=== PATIENT | female | born 1960 | race Caucasian/White ===

== ENCOUNTER 2019-07-04 10:24 | Inpatient (IN) ==
[2019-07-04 10:57] LABS: Basophils # (auto) 0.02 K/uL (0-0.2); Basophils % (auto) 0.3 %; Eosinophils # (auto) 0.03 K/uL (0-0.5); Eosinophils % (auto) 0.4 %; Hematocrit (blood only) 34.8 % (37-47); Hemoglobin 10.6 g/dL (12.0-16.0); Immature Granulocytes # (auto) 0.01 K/uL (0.00-0.02); Immature Granulocytes % (auto) 0.1 %; Lymphocytes # (auto) 1.42 K/uL (1.2-3.4); Lymphocytes % (auto) 19.7 %; Mean Corpuscular Hemoglobin 24.4 pg (25-34); Mean Corpuscular Hgb Conc 30.5 g/dL (32-36); Mean Corpuscular Volume 80.2 fL (80-100); Mean Platelet Volume 11.9 fL (7.4-10.4); Monocytes # (auto) 0.42 K/uL (0.11-0.59); Monocytes % (auto) 5.8 %; Neutrophils % (auto) 73.7 %; Platelet Count 176 K/uL (130-400); RDW Coefficient of Variation 15.7 % (11.5-14.5); RDW Standard Deviation 45.8 fL (36.4-46.3); Red Blood Count 4.34 M/uL (4.2-5.4)
--- NOTE | 2019-07-04 10:59 | XRay Report ---
XR chest 1V portable HISTORY: 59 years-old Female weakness acute weakness COMPARISON: Chest radiographs 06/10/2009 TECHNIQUE: Portable AP view of the chest FINDINGS: Moderate enlargement of the cardiac silhouette has increased in size from comparison. Prior median st ernotomy and CABG with coronary artery stent grafts. Calcified plaque of the thoracic aortic arch. Th ere is no pneumothorax, pleural effusion or overt pulmonary edema. Degenerative changes of the should ers and spine. IMPRESSION: 1. Moderate enlargement of the cardiac silhouette has increased in size from 2010. 2. Prior median sternotomy and CABG with coronary artery stent. 3. No overt pulmonary edema or airspace consolidation. ACT 112: Negative or not required by law. The above report was generated using voice recognition software. It may contain grammatical, syntax o r spelling errors. Electronically signed by: Hardik Salmon M.D. 07/04/2019 10:58 AM
[2019-07-04 11:17] LABS: Albumin Level 3.6 gm/dl (3.4-5.0); BUN Creatinine Ratio 17.1 (10-20); Creatinine Clr Calc Pharmacy 31.6 ml/min; Est GFR (African American) 23.1; Magnesium 2.5 mg/dl (1.8-2.4); Potassium 4.8 mmol/L (3.5-5.1)
[2019-07-04 11:32] LABS: Albumin Globulin Ratio 1.1 (0.9-2); Bilirubin,Total 0.9 mg/dl (0.2-1); Globulin 3.4 gm/dl (2.5-4.0); Thyroid Stimulating Hormone 3.2 uIu/ml (0.300-4.500); Troponin I 0.46 ng/ml (0-0.045)
--- NOTE | 2019-07-04 11:45 | Emergency Department Note ---
Impression & Plan Near syncope, Elevated troponin I level, SAMANTHA (acute kidney injury), Abnormal ECG ED Provider Note NAME: WAYNE GONZALEZ AGE: 59 SEX: F ARRIVES VIA: Ambulance INFORMANT: [Paient] ED PROVIDER(S): Rodriguez Martinez MD CHIEF COMPLAINT: Near syncope PLAN: Disposition: Admitted Condition: [Good] MEDICAL DECISION MAKING: Patient presented with a near syncopal/dizziness episode. She has been having several of these over the last few weeks. They have been transient and come and go. She had a work-up performed. She has an abnormal ECG however it does not appear to be significantly different than her prior one from November 2018. The patient does have a cardiac history. She had frequent ectopy on the monitor including consecutive PVCs. No episodes of V. tach noted. Her work-up did reveal an elevated creatinine concerning for SAMANTHA. Her troponin was moderately elevated as well. The patient did not have any chest discomfort, palpitation or shortness of breath. Due to the findings further management in the hospital was felt to be necessary. I did consult with the [facility] cardiology team as well as the hospitalist. Triage Nursing notes reviewed and agree them. [Prior medical records reviewed] abnormal ECG noted from 2019. Prior creatinine measurements normal. Vital Signs: reviewed and remarkable for [no significant abnormalities] Differential diagnosis: Vasovagal event, dehydration, infection, hypoglycemia, electrolyte abnormalities, cardiac sources, intracerebral event, pulmonary embolism, seizure, toxicologic, neurologic, as well as other pathologies. ER treatment provided: IV Lopressor 5 mg after discussion with cardiology. Diagnostics interpreted by me: ECG #1:Rate: 83 Rhythm: Sinus rhythm with frequent PVCs and PACs. [place]: Normal QRS: Normal ST segements: ST elevation in lead III only. This is similar to prior. Other: T wave inversions laterally. Anteroseptal Q waves. When compared to 19 December [address] elevation is the same. PVCs are new. Lateral T wave inversions are old and anteroseptal Q waves old. ECG #2:Rate: 81 Rhythm: Sinus rhythm with frequent PVCs and PACs. [place]: Normal QRS: Normal ST segements: ST elevation in lead III only. This is similar to prior. Other: T wave inversions laterally. Anteroseptal Q waves. No significant change from the first. Cardiac Monitoring: Cardiac monitoring ordered by me: The patient was placed on continuous cardiac monitoring and observed. It revealed a sinus rhythm at 62 beats per minute without dysrhythmia. Frequent ectopy noted. Laboratory studies: [See below] unremarkable CBC. Chemistry panel did reveal SAMANTHA with a creatinine that is significantly different than prior. She has an elevated troponin as well. Imaging studies: Chest x-ray. Findings: A chest x-ray was performed and revealed no pneumothorax, effusion, infiltrate, pulmonary edema, free air under the diaphragm, or wide mediastinum. Impression: No acute disease. Consultation(s): Amy hospitalist, patient will be admitted by Dr. Quoc Reyes landscaper, Dr. Blakely. HPI: 59/F arrives for evaluation of dizziness and a near syncopal episode. The patient notes over the last few weeks she has been having on and off episodes. She usually rests and they subside. The patient has an extensive cardiac history. She has been taking her medications. She talked her primary care office about this issue already. The patient states the episode today was the worst she is experienced and bystanders summoned EMS. EMS noted she did have frequent PVCs but noted no obvious dysrhythmia. She currently has no pain. She denies any other symptoms or any recent illnesses. Pt denies headache, fevers, chills, diaphoresis, visual changes, neck pain, chest pain, breathing difficulties, nausea, vomiting, abdominal pain, back pain, melena, hematochezia, urinary symptoms, numbness, weakness, lymphadenopathy, rash, or other complaints. ROS: See above HPI for pertinent positives & negatives. A total of [10] systems reviewed and were otherwise negative. PAST MEDICAL HISTORY:[See Below] diabetes, coronary artery disease, hypothyroidism PAST SURGICAL HISTORY:[See Below]CABG, coronary stent. FAMILY HISTORY:[See Below] SOCIAL HISTORY:[See Below] employed. HOME MEDICATIONS:[See Below] ALLERGIES:[See Below] VITALS:[See Below] PHYSICAL EXAMINATION: GENERAL: Awake, alert, well-appearing, in no distress HENT: Normocephalic, atraumatic. Oropharynx unremarkable. EYES: Normal conjunctiva. Sclera non-icteric. NECK: Inspection normal. Non-tender. Supple. No nuchal rigidity. FROM. No masses. RESPIRATORY: Clear to auscultation. No wheezes. No rales. Normal respiratory effort. CARDIAC: Normal rate. Normal rhythm. No murmurs. No rubs. Extremities warm and well perfused. Pulses equal. No JVD. GI: Soft, non-distended. No tenderness to palpation. No rebound or guarding. No masses. RECTAL: Deferred. MUSCULOSKELETAL: Atraumatic. Chest examination reveals no tenderness. The back is symmetrical on inspection without obvious abnormality. There is no CVA tenderness to palpation. No joint edema. LOWER EXTREMITIES: Calves are equal size bilaterally and non-tender. Trace lower edema. No discoloration. NEURO: Normal sensorium. No sensory or motor deficits noted. SKIN: No rash or jaundice noted. ED COURSE: [Critical Care:] [None] Rodriguez Martinez MD Past Med/Surg History Medical History CAD (coronary artery disease) Chronic diastolic (congestive) heart failure CKD (chronic kidney disease), stage IV Dyslipidemia (Acute) Frequent PVCs (Acute) HTN (hypertension) Hypothyroidism Major depressive disorder (Acute) Obesity (Acute) DONALD (obstructive sleep apnea) (Acute) Type 2 diabetes mellitus (Acute) Surgical History History of gastric bypass (Acute ~2008) Donn En Y Hx of CABG (Acute ~2004) "CABG, PCI, and stent to the mid RCA in Mar 2004" Status post coronary artery stent placement (Acute ~12/18/18) [id number] Resolute Rousseau stent to LAD distal to ALEMAN-LAD graft touchdown. 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 Other Information That Helps Us Care for You: No Feels Safe at Home: Yes Safety Concerns: Feels Safe At This Time Smoking Status: Never smoker Do You Dip or Chew Tobacco: No ; Second Hand Exposure: No ; Tobacco Cessation Education Requested by Patient: No Hx Alcohol Use: No Hx Substance Use: No Allergies Allergies Allergy/AdvReac Type Severity Reaction Status Date / Time lisinopril Allergy Severe Diarrhea Verified 07/04/19 11:07 escitalopram [From Lexapro] AdvReac Severe NAUSEA/VOMI Verified 07/04/19 11:07 TING Home Meds Home Medications Medication Instructions Recorded Confirmed aspirin [Aspirin Childrens] 81 mg PO DAILY 04/29/19 07/04/19 atorvastatin 80 mg PO PM 04/29/19 07/04/19 biotin 1 mg PO DAILY 04/29/19 07/04/19 clopidogrel [Plavix] 75 mg PO DAILY 04/29/19 07/04/19 famotidine [Pepcid] 20 mg PO DAILY 04/29/19 07/04/19 furosemide [Lasix] 40 mg PO DAILY 04/29/19 07/04/19 hydrocortisone 1 applic TOPICAL TID PRN 04/29/19 07/04/19 insulin glargine [Lantus U-100 27 unit SUBCUT DAILY 04/29/19 07/04/19 Insulin] isosorbide dinitrate 10 mg PO BID 04/29/19 07/04/19 levothyroxine 50 mcg PO DAILYBB 04/29/19 07/04/19 losartan 50 mg PO DAILY 04/29/19 07/04/19 metoprolol tartrate 25 mg PO BID 04/29/19 07/04/19 nitroglycerin [Nitrostat] 0.4 mg SUBLINGUAL DIRECTED PRN 04/29/19 07/04/19 pantoprazole [Protonix] 40 mg PO DAILYBB 04/29/19 07/04/19 Results & Data (ED) Vital Signs Vital Signs - 24 hr 07/04/19 10:32 07/04/19 10:45 Temperature 36.6 C Temperature Source Oral Pulse Rate 84 Pulse Rate from SpO2 Sensor 83 Respiratory Rate 17 Blood Pressure 128/73 Blood Pressure Mean 92 Pulse Oximetry 99 99 Oxygen Delivery Method Room Air Room Air Sepsis Recent Fever Within 48 Hours No Sepsis New/Unexplained Change in Mental Status No Sepsis Action Taken by Nursing No Action Required Laboratory Data Result diagrams: 07/04/19 10:42 07/04/19 10:42 Lab Results 07/04/19 07/04/19 Range/Units 10:42 10:42 WBC 7.20 (4.8-10.8) K/uL RBC 4.34 (4.2-5.4) M/uL Hgb 10.6 L (12.0-16.0) g/dL Hct 34.8 L (37-47) % MCV 80.2 (80-100) fL MCH 24.4 L (25-34) pg MCHC 30.5 L (32-36) g/dL RDW Std Deviation 45.8 (36.4-46.3) fL RDW Coeff of Kami 15.7 H (11.5-14.5) % Plt Count 176 (130-400) K/uL MPV 11.9 H (7.4-10.4) fL Immature Gran % (Auto) 0.1 % Neut % (Auto) 73.7 % Lymph % (Auto) 19.7 % [place] % (Auto) 5.8 % Eos % (Auto) 0.4 % Baso % (Auto) 0.3 % Immature Gran # (Auto) 0.01 (0.00-0.02) K/uL Neut # (Auto) 5.30 (1.4-6.5) K/uL Lymph # (Auto) 1.42 (1.2-3.4) K/uL [place] # (Auto) 0.42 (0.11-0.59) K/uL Eos # (Auto) 0.03 (0-0.5) K/uL Baso # (Auto) 0.02 (0-0.2) K/uL Sodium 139 (136-145) mmol/L Potassium 4.8 (3.5-5.1) mmol/L Chloride 106 (98-107) mmol/L Carbon Dioxide 22 (21-32) mmol/L Anion Gap 11.0 (3-11) BUN 44 H (7-18) mg/dl Creatinine 2.57 H (0.6-1.2) mg/dl Est Cr Clr Drug Dosing 31.6 ml/min Est GFR ( Amer) 23.1 Est GFR (Non-Af Amer) 20.0 BUN/Creatinine Ratio 17.1 (10-20) Glucose 169 H (70-99) mg/dl Calcium 8.0 L (8.5-10.1) mg/dl Magnesium 2.5 H (1.8-2.4) mg/dl Total Bilirubin 0.9 (0.2-1) mg/dl AST 19 (15-37) U/L ALT 24 (12-78) U/L Alkaline Phosphatase 125 H (45-117) U/L Troponin I 0.460 H* (0-0.045) ng/ml Total Protein 7.0 (6.4-8.2) gm/dl Albumin 3.6 (3.4-5.0) gm/dl Globulin 3.4 (2.5-4.0) gm/dl Albumin/Globulin Ratio 1.1 (0.9-2) TSH 3.200 (0.300-4.500) uIu/ml Administered Medications Amiodarone HCl 450 mg/ (Dextrose) 250 mls @ 33.333 mls/hr IV .Q7H30M [facility]; Protocol Stop: 08/03/19 16:04 Last Admin: 07/04/19 16:19 Dose: 1 mg/min, 33.3 mls/hr Documented by: [id number] Cosigned by: [id number] Insulin Aspart (Novolog Flexpen) 0 units SC ACHS [facility] Stop: 08/03/19 16:29 Last Admin: 07/04/19 17:28 Dose: 3 units Documented by: [id number] Cosigned by: [id number] Isosorbide Dinitrate (Isordil) 10 mg PO 0700,1200 [facility] Stop: 08/03/19 14:59 Last Admin: 07/04/19 15:42 Dose: 10 mg Documented by: [id number] Discontinued Medications Sodium Chloride (Nss 1000ml) 250 mls @ 999 mls/hr IV .Q16M ONE Stop: 07/04/19 12:21 Last Infusion: 07/04/19 13:12 Dose: 0 mls/hr Documented by: [id number] Admin: 07/04/19 12:56 Dose: 999 mls/hr Documented by: [id number] Amiodarone HCl/Dextrose (Nexterone / D5w) 150 mg in 100 mls @ 600 mls/hr IV NOW [facility] Stop: 07/04/19 16:04 Last Infusion: 07/04/19 16:33 Dose: 0 mls/hr Documented by: [id number] Cosigned by: [id number] Admin: 07/04/19 16:03 Dose: 600 mls/hr Documented by: [id number] Cosigned by: [id number] Metoprolol Tartrate (Lopressor) 5 mg IV NOW STA Stop: 07/04/19 11:52 Last Admin: 07/04/19 14:55 Dose: Not Given Documented by: [id number] Discharge Plan Visit Data *Final* Discharge Date/Time: 07/04/19 12:57 Chief Complaint: Syncope ED Provider: Rodriguez Martinez Discharge Problem: Near syncope, Elevated troponin I level, SAMANTHA (acute kidney injury), Abnormal ECG Patient Disposition: Admitted As Inpatient Discharge Instructions Interventions: ED Discharge Assessment Last Done: 07/04/19 12:57
[2019-07-04] MEDS ORDERED: METOPROLOL TARTRATE 1 MG/ML VIAL IV STA (11:51)
[2019-07-04] MEDS ORDERED: SODIUM CHLORIDE 0.9% 1000ML 250 ML IV ONE (12:06)
--- NOTE | 2019-07-04 13:15 | History & Physical Report ---
Date of Service July 04, 2019 Assessment & Plan (1) Dizziness: DDX: Orthostatic hypotension, arrhythmia, symptomatic bradycardia, hypoglycemia Pt is 59 y/o F with PMH CAD s/p CABG, stent to LAD, HTN, dyslipidemia, chronic resting bradycardia, frequent PVCs, CKD IV, DM II, obesity s/p gastric bypass, DONALD intolerant to CPAP presented to ER with complaint of intermittent dizziness x 1-2 weeks. Patient states his been experiencing a dizziness sensation with walking or bending over. Today episode of dizziness and near syncope and fell onto right knee. Denies CP, SOB, palpitations, N/V In ER pt afebrile, Pulse variable in 50s-70's, R: 20, BP: 128/73, 99% on RA. No leukocytosis, H/H: 10.6/34 (Hgb baseline ~10s), glucose: 169, troponin: 0.46, Ca: 8, magnesium 2.5 otherwise no other significant electrolyte abnormality. EKG with PVCs -Monitor on tele for arrhythmia -ER contacted cardiology, Dr Blakely who had recommended Lopressor 5mg IV. Lopressor dose was held in ER secondary to HR: 52 -Obtain orthostatic vital signs -Monitor BSGs -Pt denies any imaging or workup on her right knee at this time -CBC, BMP in am (2) Elevated troponin I level: troponin: 0.46 No CP, SOB -Trend troponin -Echo -Cardiology consult (3) Frequent PVCs: H/O frequent PVCs Pt without report of palpitations -Continue metoprolol -Monitor on tele (4) Acute kidney injury superimposed on CKD: Cr: 2.5. Baseline Cr: 2.0-2.1. Follows with Dr Darling -250ml NSS bolus -Hold lasix tomorrow and reassess -Monitor renal functions -Avoid nephrotoxic agents when possible -May need to consider nephrology consult if worsening (5) CAD (coronary artery disease): S/P CABG, S/P HAILEY to LAD in 11/2018 -Continue aspirin, Plavix, isosorbide, atorvastatin -Trending trops as above (6) HTN (hypertension): -Continue metoprolol, losartan (7) Type 2 diabetes mellitus: A1c: 7.4 on 04/06/2019 -Continue Lantus -Novolog sliding scale per protocol (8) Chronic diastolic (congestive) heart failure: 11/2018 echo: EF: 60-64%, grade II diastolic dysfunction, moderate aortic valve sclerosis Appears euvolemic -Patient had Lasix today, will hold Lasix dosage tomorrow and reassess (9) DONALD (obstructive sleep apnea): Intolerant to CPAP (10) Obesity: S/p gastric bypass BMI 47 Lifestyle modifications recommended (11) Hypothyroidism: TSH: 3.2 -Continue levothyroxine DVT Prophylaxis -SCDs Full Code as per discussion with pt Follows with Dr Olvera for routine care Pt was seen and care coordinated with Dr Kumari. See addendum History of Present Illness Chief Complaint: Dizziness Primary Care Provider: Laxmi Olvera, DO Pt is 59 y/o F with PMH CAD s/p CABG, stent to LAD, HTN, dyslipidemia, chronic resting bradycardia, frequent PVCs, CKD IV, DM II, obesity s/p gastric bypass, DONALD intolerant to CPAP presented to ER with complaint of intermittent dizziness x 1-2 weeks. Patient states his been experiencing a dizziness sensation with walking which she describes as initially feeling "woozy" and feels like she needs to hold onto something. Sometimes she feels like things are spinning around. Has also noticed the sensation with bending over to put files away. Today had episode at work while walking and becoming dizzy and patient states had "blackness of vision" causing patient to fall on right knee. Patient states she could still hear everything does not think that she had complete LOC. Denies any associated chest pain, shortness of breath, palpitations, diaphoresis, nausea, vomiting with these episodes. Patient denies any other episodes of chest pain or shortness of breath. Patient reports her right knee feels stiff after fall today. Patient denies any other injury. Reports has been trying to drink some more water recently thinking she may be dehydrated. Pt states her resting pulse in the 40's. Reports fasting BSG is 120-140s. Unsure of what BP or BSG is after these dizzy episodes. Denies fever/chills, diaphoresis, N/V/D/C, WILDER, other vision changes, neck pain, orthopnea, cough, sore throat, choking, otalgia, rhinorrhea, abdominal pain, paresthesias, weakness, extremity weakness, extremity edema, rashes, urinary symptoms. Denies ill contacts, recent travel. Allergies Allergy/AdvReac Type Severity Reaction Status Date / Time lisinopril Allergy Severe Diarrhea Verified 07/04/19 11:07 escitalopram [From Lexapro] AdvReac Severe NAUSEA/VOMI Verified 07/04/19 11:07 TING Home Medications Home Medications Medication Instructions Recorded Confirmed Type aspirin [Aspirin Childrens] 81 mg PO DAILY 04/29/19 07/04/19 History atorvastatin 80 mg PO PM 04/29/19 07/04/19 History biotin 1 mg PO DAILY 04/29/19 07/04/19 History clopidogrel [Plavix] 75 mg PO DAILY 04/29/19 07/04/19 History famotidine [Pepcid] 20 mg PO DAILY 04/29/19 07/04/19 History furosemide [Lasix] 40 mg PO DAILY 04/29/19 07/04/19 History hydrocortisone 1 applic TOPICAL TID PRN 04/29/19 07/04/19 History insulin glargine [Lantus U-100 27 unit SUBCUT DAILY 04/29/19 07/04/19 History Insulin] isosorbide dinitrate 10 mg PO BID 04/29/19 07/04/19 History levothyroxine 50 mcg PO DAILYBB 04/29/19 07/04/19 History losartan 50 mg PO DAILY 04/29/19 07/04/19 History metoprolol tartrate 25 mg PO BID 04/29/19 07/04/19 History nitroglycerin [Nitrostat] 0.4 mg SUBLINGUAL DIRECTED PRN 04/29/19 07/04/19 History pantoprazole [Protonix] 40 mg PO DAILYBB 04/29/19 07/04/19 History Past Med/Surg History Medical History (Updated 07/04/19 @ 13:39 by Lauren Ruiz PA-C) CAD (coronary artery disease) Chronic diastolic (congestive) heart failure CKD (chronic kidney disease), stage IV Dyslipidemia (Acute) Frequent PVCs (Acute) HTN (hypertension) Hypothyroidism Major depressive disorder (Acute) Obesity (Acute) DONALD (obstructive sleep apnea) (Acute) Type 2 diabetes mellitus (Acute) Surgical History History of gastric bypass (Acute ~2008) Donn En Y Hx of CABG (Acute ~2004) "CABG, PCI, and stent to the mid RCA in Mar 2004" Status post coronary artery stent placement (Acute ~12/18/18) [id number] Resolute [place] stent to LAD distal to ALEMAN-LAD graft touchdown. 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 Other Information That Helps Us Care for You: No Feels Safe at Home: Yes Safety Concerns: Feels Safe At This Time Smoking Status: Never smoker Do You Dip or Chew Tobacco: No ; Second Hand Exposure: No ; Tobacco Cessation Education Requested by Patient: No Hx Alcohol Use: No Hx Substance Use: No Review of Systems Review of Systems: All systems reviewed & are unremarkable except as noted in HPI & below Physical Exam Physical Exam: General: no distress, obese Head: normocephalic, atraumatic Eyes: PERRL, EOM's intact, conjunctiva non-injected, anicteric ENT: normal inspection external ears, nose, mucous membranes moist Neck: supple, trachea midline, ROM intact Lungs: clear, no respiratory distress, no wheezing/rhonchi/rales CV: bradycardia, rate 56, +ectopy, no murmur, no pretibial edema Abd: normal BS, protuberant, soft, non-tender Ext: no cyanosis, no calf tenderness; right knee without erythema,ecchymosis or edema, able to flex and extend, distal pulses palpable Neuro: A&O x 3, no focal deficits noted, normal affect Skin: warm, dry Results & Data Results & Data ([facility]) Vital Signs (Past 12 Hours) Vital Signs Temp Pulse Resp BP Pulse Ox 07/04/19 10:45 99 07/04/19 10:32 36.6 C 84 17 128/73 99 Laboratory Results Short CBC 07/04/19 Range/Units 10:42 WBC 7.20 (4.8-10.8) K/uL Hgb 10.6 L (12.0-16.0) g/dL Hct 34.8 L (37-47) % Plt Count 176 (130-400) K/uL BMP 07/04/19 10:42 Sodium 139 Potassium 4.8 Chloride 106 Carbon Dioxide 22 BUN 44 H Creatinine 2.57 H Glucose 169 H Calcium 8.0 L Cardiac Enzymes 07/04/19 Range/Units 10:42 Troponin I 0.460 H* (0-0.045) ng/ml Liver Function 07/04/19 Range/Units 10:42 Total Bilirubin 0.9 (0.2-1) mg/dl AST 19 (15-37) U/L ALT 24 (12-78) U/L Alkaline Phosphatase 125 H (45-117) U/L Albumin 3.6 (3.4-5.0) gm/dl Diagnostic Findings CXR: IMPRESSION: 1. Moderate enlargement of the cardiac silhouette has increased in size from 2009. 2. Prior median sternotomy and CABG with coronary artery stent. 3. No overt pulmonary edema or airspace consolidation. Code Status & VTE Plan VTE Prophylaxis Plan VTE Prophylaxis will be ordered: Yes Supervising Physician Co-Signing Physician Notes I, Dr. Jeromy Kumari, have seen and examined the patient Crissy Ríos with physician stylist assistant and would like to comment that: On Physical Exam General: Obese female patient, no acute distress Lungs: clear to auscultation, no wheezing Heart: bradycardia in the 50s Abdomen: soft, nontender, positive bowel sounds Extremities: knee pain ASSESSMENT AND PLAN And as per patient and outpatient records, she has cardiac history including drug eluting stent in November 2018 and on dual anti-platelets, also takes diuretics, and diabetes mellitus type 2 on [facility] current use of insulin. Patient reports in recent weeks of feeling lightheaded when walking, she denies feeling these episodes when at rest or when changing positioning from sitting to standing or stand to sitting. She does note that sometimes she does feel lightheaded when bending to reach for paperwork and files at her job. Patient had syncopal episode at work today. She does not know her blood sugars at the time of the syncopal event and she reports she checks blood sugar only in once a day in the morning before breakfast - she had never checked blood sugars in any episode of lightheadedness previously. Patient denies shortness of breath of chest pain or palpations or other associated symptoms when lightheaded. Patient does have premature ventricular contractions as seen in the ED but no symptoms of dizziness in the ED. Hospitalist held the metoprolol 5 mg IV as ordered by ED provider as patient comfortable and heart rate in the 50s -Syncope/Dizziness: cardiac and diabetes workup as below, give IV fluids and check orthostatics q shift -History of hypertension: no hypotension on admission, may continue home dose isosorbide dinitrate and home dose losartan for now -Elevated troponins: admission troponin 0.406. no chest pain, history of coronary artery disease with presence of drug eluting stent, trend troponins, monitor on telemetry, cardiology consult, echocardiogram -Chronic diastolic (congestive) heart failure; Coronary artery disease with presence of drug eluting stent: S/P CABG in the past, S/P HAILEY to LAD in 11/2018, continue home aspirin and clopidogrel, continue statin, no edema on admission CXR, hold Lasix for now because of SAMANTHA -Acute kidney injury on chronic kidney disease: outpatient creatinine of 2, admission creatinine of 2.5, give IV fluids and trend creatinine, hold Lasix for now -Knee pain: patient deferred knee X ray, PT/OT evaluation, encourage ambulation to monitor heart rate and rhythm with activity -Hypothyroidism: TSH is normal level, continue home dose levothyroxine -Type 2 diabetes mellitus 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 Townsend will be taking over the care of the patient as hospitalist starting on 07/05/2019
[2019-07-04] MEDS ORDERED: CARBOHYDRATES FOR HYPOGLYCEMIA PO PRN (13:59)
[2019-07-04] MEDS ORDERED: GLUCOSE 10 TABS/TUBE PO PRN (13:59)
[2019-07-04] MEDS ORDERED: GLUCOSE 40% GEL 15 GM TUBE PO PRN (13:59)
[2019-07-04] MEDS ORDERED: HYDROCORTISONE 2.5% CR 30 GM TUBE EXT PRN (13:59)
[2019-07-04] MEDS ORDERED: DEXTROSE 50% 50 ML SYRINGE IV PRN (13:59)
[2019-07-04] MEDS ORDERED: GLUCAGON FOR INJ 1 MG VIAL SQ PRN (13:59)
[2019-07-04] MEDS ORDERED: NITROGLYCERIN SL 0.4 MG/TAB TAB SL PRN (13:59)
[2019-07-04] MEDS ORDERED: MoRPHine SULFATE 2 MG/ML CARP IV PRN (15:41)
[2019-07-04] MEDS: ISOSORBIDE DINITRATE 10 MG TAB PO SCH (15:42)
[2019-07-04] MEDS ORDERED: STAT IV Infusion **Titration per Protocol STA (15:55)
[2019-07-04] MEDS ORDERED: 0.2 MICRON FILTER SET 1 EA IV ONE (15:55)
[2019-07-04] MEDS ORDERED: AMIODARONE IV BOLUS & DRIP IV STA (15:55)
[2019-07-04] MEDS ORDERED: AMIODARONE / D5W 150 MG/100 ML BAG IV STA (15:55)
[2019-07-04] MEDS: AMIODARONE 450 MG in D5W 250ML IN *POLYOLEFIN BAG* 241 ML IV SCH ×2 (16:19→23:36)
--- NOTE | 2019-07-04 16:52 | Cardiology Consultation ---
Date of Consultation July 04, 2019 Assessment & Plan (1) Frequent PVCs: (2) Acute kidney injury superimposed on CKD: (3) CAD (coronary artery disease): (4) Obesity: (5) DONALD (obstructive sleep apnea): (6) Near syncope: (7) Cardiomyopathy: The patient has a well-documented longstanding history of frequent PVCs, however, this is been followed closely and she is always maintained in normal ejection fraction. This is also her first syncopal event. Given the frequency of her ectopy at this time along with her symptoms I am concerned that she may have had a run of ventricular tachycardia causing her to lose consciousness. Along with that, we now see a precipitous drop of her LV systolic function that makes me concerned that it may be PVC induced. Unfortunately, her renal function limits my options for antiarrhythmics Given the immediate concern I will start her on amiodarone IV bolus and drip. My hope is that we will see significant PVC suppression without any sustained arrhythmias after the medication has been started. She was counseled on this medication along with the benefits and risks and she is agreeable to use the amiodarone at this time. Should we not see any significant improvement despite amiodarone loading then transfer to [facility] may be necessary for PVC ablation. Consideration may also have to be given to an ischemic evaluation given her extensive history of coronary artery disease, but given her current symptoms and lack of any objective findings of ischemia at this point we will pursue an electrical solution. The patient was also counseled on the potential grave nature of these new findings and she states he understands. Obviously, her electrolytes will be followed very closely and repleted as necessary to maintain potassium greater than 4 and magnesium greater than 2. She does not currently examine his volume overloaded so given her downtrending renal function I believe it would be sosa to give her a trial of normal saline solution and follow her renal function but I would have a very short leash to start diuretics should she show any clinical signs of volume overload. Her aspirin and Plavix should be continued uninterrupted. We will follow very closely. History of Present Illness Reason for Consultation: syncope/frequent PVC's Requesting Physician: Dr. Kumari Attending Physician: Jeromy Kumari MD History of Present Illness It was my pleasure to see Mrs. Ríos in consultation today July 04, 2019. She is a very pleasant 59-year-old woman who normally follows with Dr. Olvera of our cardiology practice. She presented to [facility] emergency department on 07/04/2019 with complaints of lightheaded this and a possible brief loss of consciousness. The patient states that for the last 3 weeks or so she is been having episodes of lightheadedness. She states that she simply be walking or sitting and all of a sudden become lightheaded. These have seemed to have waxed and waned and she denies any associated symptoms with this lightheaded spells. She specifically denies any associated chest pain, shortness of breath, palpitations or syncope. Today she was at work walking the perez when suddenly she became significantly lightheaded to the point where she started going towards the wall to balance herself. She remembers becoming significantly lightheaded and then she is not sure but she thinks she may have lost consciousness for a brief second. She did end up on the ground with pain on her right knee where she must of landed. At that point coworkers rushed to her side and EMS was called. Upon presentation emergency department she was found to be in sinus rhythm with very frequent PVCs. I discussed the case at that time with Dr. Martinez and recommend she be given 5 mg of IV Lopressor. Labs were drawn which show a significant decline of her renal function and she was admitted to telemetry. Clinically she states that she has been feeling well since admission has not any further lightheaded spells. Telemetry continues to show sinus rhythm with very frequent PVCs. Past medical history: chronic coronary disease, hypertension, dyslipidemia, morbid obesity, Diabetes Diastolic dysfunction with normal LV systolic function. Carotid occlusive disease chronic resting bradycardia, and frequent premature ventricular complexes. Due to CP/SOB, she was sent for repeat cardiac catheterization on December 18, 2018 at [facility] which demonstrated 90% stenosis of the mid LAD distal to the ALEMAN to LAD graft touchdown. She was treated with a 1 drug- eluting stent with good results. On discharge she was prescribed Plavix 75 mg daily and furosemide was increased to 40 mg daily due to elevated LVEDP. HCTZ was discontinued. Allergies Allergy/AdvReac Type Severity Reaction Status Date / Time lisinopril Allergy Severe Diarrhea Verified 07/04/19 11:07 escitalopram [From Lexapro] AdvReac Severe NAUSEA/VOMI Verified 07/04/19 11:07 TING Home Medications Home Medications Medication Instructions Recorded Confirmed Type aspirin [Aspirin Childrens] 81 mg PO DAILY 04/29/19 07/04/19 History atorvastatin 80 mg PO PM 04/29/19 07/04/19 History biotin 1 mg PO DAILY 04/29/19 07/04/19 History clopidogrel [Plavix] 75 mg PO DAILY 04/29/19 07/04/19 History famotidine [Pepcid] 20 mg PO DAILY 04/29/19 07/04/19 History furosemide [Lasix] 40 mg PO DAILY 04/29/19 07/04/19 History hydrocortisone 1 applic TOPICAL TID PRN 04/29/19 07/04/19 History insulin glargine [Lantus U-100 27 unit SUBCUT DAILY 04/29/19 07/04/19 History Insulin] isosorbide dinitrate 10 mg PO BID 04/29/19 07/04/19 History levothyroxine 50 mcg PO DAILYBB 04/29/19 07/04/19 History losartan 50 mg PO DAILY 04/29/19 07/04/19 History metoprolol tartrate 25 mg PO BID 04/29/19 07/04/19 History nitroglycerin [Nitrostat] 0.4 mg SUBLINGUAL DIRECTED PRN 04/29/19 07/04/19 History pantoprazole [Protonix] 40 mg PO DAILYBB 04/29/19 07/04/19 History Patient History Medical History CAD (coronary artery disease) Chronic diastolic (congestive) heart failure CKD (chronic kidney disease), stage IV Dyslipidemia (Acute) Frequent PVCs (Acute) HTN (hypertension) Hypothyroidism Major depressive disorder (Acute) Obesity (Acute) DONALD (obstructive sleep apnea) (Acute) Type 2 diabetes mellitus (Acute) Surgical History History of gastric bypass (Acute ~2008) Donn En Y Hx of CABG (Acute ~2004) "CABG, PCI, and stent to the mid RCA in Mar 2004" Status post coronary artery stent placement (Acute ~12/18/18) [id number] Resolute Fernando stent to LAD distal to ALEMAN-LAD graft touchdown. 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 No acute distress. HEENT: Normocephalic, atraumatic. Pupils equal, round and reactive to light and accommodation. Extraocular muscles are intact. Anicteric sclera. Moist mucous membranes. Neck: No JVD. No bruit. Cardiovascular: Regular. Positive S-4. Normal S-1 and S-2. No S-3. No murmurs or rubs. Pulmonary: Clear to auscultation B/L. No rales, rhonchi or wheezing Abdomen: Bowel sounds x 4, soft. No rebound, guarding or tenderness. No organomegaly. Extremities: No clubbing, cyanosis or edema. +2 pedal pulses bilaterally. Skin: Warm and dry. Results & Data ([facility]) Vital Signs (Past 12 Hours) Vital Signs Temp Pulse Pulse Resp BP BP Pulse Ox 07/04/19 15:48 69 07/04/19 15:04 36.8 C 64 18 165/63 H 98 07/04/19 13:25 65 07/04/19 13:20 36.9 C 52 L 18 138/85 100 07/04/19 10:45 99 07/04/19 10:32 36.6 C 84 17 128/73 99 Laboratory Results Laboratory Results - last 24 hr 07/04/19 07/04/19 07/04/19 10:42 10:42 15:49 WBC 7.20 RBC 4.34 Hgb 10.6 L Hct 34.8 L MCV 80.2 MCH 24.4 L MCHC 30.5 L RDW Std Deviation 45.8 RDW Coeff of Kami 15.7 H Plt Count 176 MPV 11.9 H Immature Gran % (Auto) 0.1 Neut % (Auto) 73.7 Lymph % (Auto) 19.7 Vermillion % (Auto) 5.8 Eos % (Auto) 0.4 Baso % (Auto) 0.3 Immature Gran # (Auto) 0.01 Neut # (Auto) 5.30 Lymph # (Auto) 1.42 [place] # (Auto) 0.42 Eos # (Auto) 0.03 Baso # (Auto) 0.02 Sodium 139 Potassium 4.8 Chloride 106 Carbon Dioxide 22 Anion Gap 11.0 BUN 44 H Creatinine 2.57 H Est Cr Clr Drug Dosing 31.6 Est GFR ( Amer) 23.1 Est GFR (Non-Af Amer) 20.0 BUN/Creatinine Ratio 17.1 Glucose 169 H POC Glucose Calcium 8.0 L Magnesium 2.5 H Total Bilirubin 0.9 AST 19 ALT 24 Alkaline Phosphatase 125 H Troponin I 0.460 H* 0.516 H* Total Protein 7.0 Albumin 3.6 Globulin 3.4 Albumin/Globulin Ratio 1.1 TSH 3.200 07/04/19 16:15 WBC RBC Hgb Hct MCV MCH MCHC RDW Std Deviation RDW Coeff of Kami Plt Count MPV Immature Gran % (Auto) Neut % (Auto) Lymph % (Auto) [place] % (Auto) Eos % (Auto) Baso % (Auto) Immature Gran # (Auto) Neut # (Auto) Lymph # (Auto) [place] # (Auto) Eos # (Auto) Baso # (Auto) Sodium Potassium Chloride Carbon Dioxide Anion Gap BUN Creatinine Est Cr Clr Drug Dosing Est GFR ( Amer) Est GFR (Non-Af Amer) BUN/Creatinine Ratio Glucose POC Glucose 174 H Calcium Magnesium Total Bilirubin AST ALT Alkaline Phosphatase Troponin I Total Protein Albumin Globulin Albumin/Globulin Ratio TSH Medications Administered Current Inpatient Medications Acetaminophen (Tylenol) 650 mg PO Q4H PRN PRN Reason: Pain or Fever Stop: 08/03/19 13:58 Amiodarone HCl () 1 ea N/A ONE ONE Stop: 07/04/19 21:56 Aspirin (Aspirin Chew) 81 mg PO DAILY ABNER Stop: 08/04/19 08:59 Atorvastatin Calcium (Lipitor) 80 mg PO PM ABNER Stop: 08/03/19 20:59 Clopidogrel Bisulfate (Plavix) 75 mg PO DAILY ABNER Stop: 08/04/19 08:59 Dextrose (Dextrose 50%) 25 - 50 ml IV UD PRN; Protocol PRN Reason: Hypoglycemia Protocol Stop: 08/03/19 13:58 Famotidine (Pepcid) 20 mg PO DAILY ABNER Stop: 08/04/19 08:59 Glucagon (Glucagen) 1 mg SQ UD PRN; Protocol PRN Reason: Hypoglycemia Protocol Stop: 08/03/19 13:58 Glucose (Dex4 Glucose) 4 - 8 tabs PO UD PRN; Protocol PRN Reason: Hypoglycemia Protocol Stop: 08/03/19 13:58 Glucose (Glucose 40%) 15 - 30 gm PO UD PRN; Protocol PRN Reason: Hypoglycemia Protocol Stop: 08/03/19 13:58 Hydrocortisone (Hydrocortisone 2.5%) 1 appln EXT TID PRN PRN Reason: AFFECTED AREA Stop: 08/03/19 13:58 Amiodarone HCl 450 mg/ (Dextrose) 250 mls @ 33.333 mls/hr IV .Q7H30M [facility]; Protocol Stop: 08/03/19 16:04 Last Admin: 07/04/19 16:19 Dose: 1 mg/min, 33.3 mls/hr Documented by: Insulin Aspart (Novolog Flexpen) 0 units SC ACHS [facility] Stop: 08/03/19 16:29 Insulin Glargine (Lantus Solostar Pen) 27 units SC DAILY ABNER Stop: 08/04/19 08:59 Isosorbide Dinitrate (Isordil) 10 mg PO 0700,1200 ABNER Stop: 08/03/19 14:59 Last Admin: 07/04/19 15:42 Dose: 10 mg Documented by: Levothyroxine Sodium (Synthroid) 50 mcg PO DAILYBB [facility] Stop: 08/04/19 06:29 Losartan Potassium (Cozaar) 50 mg PO DAILY [facility] Stop: 08/04/19 08:59 Metoprolol Tartrate (Lopressor) 25 mg PO BID [facility] Stop: 08/03/19 20:59 Miscellaneous (Carbohydrates For Hypoglycemia) 15 - 30 gm PO UD PRN PRN Reason: Hypoglycemia Protocol Stop: 08/03/19 13:58 Morphine Sulfate (Morphine Sulfate) 2 mg IV Q8H PRN PRN Reason: moderate to severe pain Stop: 07/18/19 15:40 Nitroglycerin (Nitrostat) 0.4 mg SL PRN PRN PRN Reason: Chest Pain Stop: 08/03/19 13:58 Pantoprazole Sodium (Protonix) 40 mg PO DAILYBB [facility] Stop: 08/04/19 06:29
[2019-07-04] MEDS: INSULIN ASPART 100 UNITS/ML 3 ML PEN SC SCH ×2 (17:28→20:39)
[2019-07-04 17:39] LABS: Appearance Urine Clear (Clear); Bacteria Urine Automated 4+ (Negative); Bilirubin Urine Negative (Negative); Blood Urine Negative (Negative); Color Urine Yellow; Epithelial Cell Urine Auto 0-5 /lpf (0-5); Glucose Urine UA Negative (Negative); Ketones Urine Negative (Negative); Leukocyte Esterase Urine Negative (Negative); Nitrite Urine Positive (Negative); Protein Urine Negative (Negative); RBC Urine Automated 0-4 /hpf (0-4); Specific Gravity Urine 1.011 (1.000-1.030); Urobilinogen Urine Negative (Negative)
[2019-07-04] MEDS: ATORVASTATIN 40 MG TAB PO SCH (20:40)
[2019-07-04] MEDS: METOPROLOL TARTRATE 25 MG TAB PO SCH (20:41)
[2019-07-04] MEDS: ACETAMINOPHEN 325 MG TAB PO PRN (21:05)
[2019-07-04] MEDS ORDERED: AMIODARONE RATE CHANGE ONE (21:55)
[2019-07-04 23:31] LABS: BUN Creatinine Ratio 18.6 (10-20); Calcium 8.2 mg/dl (8.5-10.1); Creatinine Clr Calc Pharmacy 32.3 ml/min; Est GFR (African American) 23.8; Est GFR (Non-African American) 20.5; Potassium 4.1 mmol/L (3.5-5.1)
[2019-07-04 23:37] LABS: Troponin I 0.459 ng/ml (0-0.045)
[2019-07-05 06:03] LABS: Estimated Average Glucose 171 mg/dl; Hemoglobin A1C 7.6 % (4.5-5.6)
--- NOTE | 2019-07-05 06:06 | Electrocardiogram Report ---
Test Reason : Blood Pressure : / mmHG Vent. Rate : 083 BPM Atrial Rate : 102 BPM P-R Int : 000 ms QRS Dur : 084 ms QT Int : 392 ms P-R-T Axes : 000 020 148 degrees QTc Int : 460 ms Sinus rhythm with frequent , and consecutive Premature ventricular complexes Anterior infarct Inferior infarct Abnormal ECG When compared with ECG of 18-AUG-2001 07:30, ST more depressed Lateral leads Premature ventricular complexes are now Present Confirmed by Scott Parker ([id number] on 07/05/2019 6:05:57 AM Referred By: REFERRED SELF Confirmed By:Scott Parker
--- NOTE | 2019-07-05 06:07 | Electrocardiogram Report ---
Test Reason : Blood Pressure : / mmHG Vent. Rate : 081 BPM Atrial Rate : 065 BPM P-R Int : 176 ms QRS Dur : 090 ms QT Int : 410 ms P-R-T Axes : 037 -14 154 degrees QTc Int : 476 ms Age and gender specific ECG analysis Sinus rhythm with frequent , and consecutive Premature ventricular complexes Inferior infarct Anterior infarct Abnormal ECG When compared with ECG of 04-JUL-2019 10:32, No significant change Confirmed by Scott Parker ([id number] on 07/05/2019 6:06:56 AM Referred By: REFERRED SELF Confirmed By:Scott Parker
[2019-07-05] MEDS: PANTOprazole 40 MG TAB PO SCH (06:23)
[2019-07-05] MEDS: LEVOTHYROXINE SODIUM 50 MCG TABLET PO SCH (06:23)
--- NOTE | 2019-07-05 06:24 | Electrocardiogram Report ---
Test Reason : Blood Pressure : / mmHG Vent. Rate : 063 BPM Atrial Rate : 063 BPM P-R Int : 158 ms QRS Dur : 094 ms QT Int : 408 ms P-R-T Axes : 032 024 105 degrees QTc Int : 417 ms Poor data quality, interpretation may be adversely affected Sinus rhythm with frequent Premature ventricular complexes in a pattern of bigeminy Anterior infarct Abnormal ECG When compared with ECG of 04-JUL-2019 10:46, Criteria for Inferior infarct are no longer Present ST no longer depressed in Lateral leads QT has shortened Confirmed by Scott Parker ([id number]) on 07/05/2019 6:24:23 AM Referred By: REFERRED SELF Confirmed By:Scott Parker
[2019-07-05] MEDS: FAMOTIDINE 20 MG TAB PO SCH (07:46)
[2019-07-05] MEDS: LOSARTAN POTASSIUM 50 MG TAB PO SCH (07:46)
[2019-07-05] MEDS: METOPROLOL TARTRATE 25 MG TAB PO SCH ×2 (07:46→20:35)
[2019-07-05] MEDS: CLOPIDOGREL BISULFATE 75 MG TAB PO SCH (07:47)
[2019-07-05] MEDS: ISOSORBIDE DINITRATE 10 MG TAB PO SCH ×2 (07:47→11:42)
[2019-07-05] MEDS: ASPIRIN 81 MG CHEW PO SCH (07:47)
[2019-07-05] MEDS: INSULIN GLARGINE SOLOSTAR 100 UNITS/ML 3 ML PEN SC SCH (07:48)
[2019-07-05 07:49] LABS: Hematocrit (blood only) 34.6 % (37-47); Hemoglobin 10.7 g/dL (12.0-16.0); Mean Corpuscular Hemoglobin 24.9 pg (25-34); Mean Corpuscular Hgb Conc 30.9 g/dL (32-36); Mean Corpuscular Volume 80.5 fL (80-100); Mean Platelet Volume 12.6 fL (7.4-10.4); Platelet Count 152 K/uL (130-400); RDW Standard Deviation 46.6 fL (36.4-46.3)
[2019-07-05] MEDS: INSULIN ASPART 100 UNITS/ML 3 ML PEN SC SCH ×4 (07:49→20:37)
[2019-07-05 08:16] LABS: BUN Creatinine Ratio 19.5 (10-20); Calcium 8.4 mg/dl (8.5-10.1); Creatinine Clr Calc Pharmacy 34.8 ml/min; Est GFR (Non-African American) 22.5; Magnesium 2.5 mg/dl (1.8-2.4); Potassium 4.4 mmol/L (3.5-5.1)
[2019-07-05] MEDS: ACETAMINOPHEN 325 MG TAB PO PRN (11:41)
--- NOTE | 2019-07-05 13:38 | Cardiology Progress Note ---
Date of Service July 05, 2019 Assessment & Plan (1) Frequent PVCs: (2) Acute kidney injury superimposed on CKD: (3) CAD (coronary artery disease): (4) Obesity: (5) DONALD (obstructive sleep apnea): (6) Near syncope: (7) Cardiomyopathy: The patient has a well-documented longstanding history of frequent PVCs, however, this is been followed closely and she is always maintained in normal ejection fraction. This is also her first syncopal event. Given the frequency of her ectopy at this time along with her symptoms I am concerned that she may have had a run of ventricular tachycardia causing her to lose consciousness. Along with that, we now see a precipitous drop of her LV systolic function that makes me concerned that it may be PVC induced. Unfortunately, her renal function limits my options for antiarrhythmics Given the immediate concern I will start her on amiodarone IV bolus and drip. My hope is that we will see significant PVC suppression without any sustained arrhythmias after the medication has been started. She was counseled on this medication along with the benefits and risks and she is agreeable to use the amiodarone at this time. Should we not see any significant improvement despite amiodarone loading then transfer to [facility] may be necessary for PVC ablation. Consideration may also have to be given to an ischemic evaluation given her extensive history of coronary artery disease, but given her current symptoms and lack of any objective findings of ischemia at this point we will pursue an electrical solution. The patient was also counseled on the potential grave nature of these new findings and she states he understands. Obviously, her electrolytes will be followed very closely and repleted as necessary to maintain potassium greater than 4 and magnesium greater than 2. She does not currently examine his volume overloaded so given her downtrending renal function I believe it would be sosa to give her a trial of normal saline solution and follow her renal function but I would have a very short leash to start diuretics should she show any clinical signs of volume overload. Her aspirin and Plavix should be continued uninterrupted. We will follow very closely. 07/05/19 She is responding beautifully to the amiodarone bolus and her PVCs have significantly decreased and now are only rare. At this point, I will transition her to oral amiodarone 400 mg 2 or 3 times a day based on her heart rates. This will be started this evening after her 24- hour IV load is completed. This will allow us to discharge her to home and follow-up with electrophysiology to discuss an ablation as an outpatient. We also discussed options as an outpatient for her arrhythmias. We discussed using a live ZIO monitor to monitor for any arrhythmias versus a LifeVest there will be able to treat any significant ventricular tachycardia. She will think about which one she prefers. Continue to monitor on telemetry overnight. Subjective Patient seen and examined out of bed in chair, medical records reviewed. States that she is had an uneventful night. Denies any cardiac complaints specifically denies any chest pain, shortness of breath, palpitations, lightheadedness, dizziness or syncope. She is been tolerating her medications without issue. Telemetry reviewed: Normal sinus rhythm/bradycardia with occasional to rare PVCs. No sustained runs of ventricular tachycardia Review of Systems Review of Systems: All systems reviewed & are unremarkable except as noted in HPI & below Physical Exam Physical Exam: General: Awake, alert and oriented x 3. No acute distress. HEENT: Normocephalic, atraumatic. Pupils equal, round and reactive to light and accommodation. Extraocular muscles are intact. Anicteric sclera. Moist mucous membranes. Neck: No JVD. No bruit. Cardiovascular: Regular. Positive S-4. Normal S-1 and S-2. No S-3. 3/6 mid to late systolic ejection murmur, greatest at the right sternal border, second intercostal space with radiation to the bilateral carotids. No rubs. Pulmonary: Clear to auscultation bilaterally. No rales, rhonchi, or wheezing. Abdomen: Bowel sounds x 4, soft. No rebound, guarding or tenderness. No organomegaly. Extremities: No clubbing, cyanosis or edema. +2 pedal pulses bilaterally. Skin: Warm and dry. Results & Data Vital Signs (Past 12 Hours) Vital Signs Temp Pulse Resp BP Pulse Ox 07/05/19 11:30 36.6 C 44 L 20 166/71 H 99 07/05/19 07:00 36.4 C L 48 L 18 98 07/05/19 04:00 36.6 C 46 L 17 149/74 H 96
[2019-07-05] MEDS: AMIODARONE 450 MG in D5W 250ML IN *POLYOLEFIN BAG* 241 ML IV SCH ×2 (14:26→16:05)
--- NOTE | 2019-07-05 17:55 | Hospitalist Progress Note ---
Date of Service July 05, 2019 Assessment & Plan (1) Dizziness: possible due to arrythmia -frequent PVC's appreciate input from cardiology started on IV Amiodarone gtt , noted to have significant improvement on ventricular ectopy changed to PO Amiodarone today cont to monitor in tele CARDIOMYOPATHY : significant decline in EF noted 20-25% with global hypokinesis compared to ECHO on 11/2018 : EF was 60% per cardiology -cardiomyopathy possible arrythmia induced cont on Amiodarone pt will need ischemic cardiac work up -repeat ECHO followed by stress test possibly at out patient once cardiac arrythmia is adequately controlled follow with [facility] Cardiology Dr Olvera (2) Elevated troponin I level: troponin: 0.46 possible due to ventricular ectopy cardiology following management of PVC as outline above (3) Frequent PVCs: (4) Acute kidney injury superimposed on CKD: Acute nenal failure on admission Cr: 2.5. Baseline Cr: 2.0-2.1. Follows with Dr Darling -cr improved to baseline with IV fluid follow BMP avoid NSAID's -- (5) CAD (coronary artery disease): S/P CABG, S/P HAILEY to LAD in 11/2018 -Continue aspirin, Plavix, isosorbide, atorvastatin (6) HTN (hypertension): -Continue metoprolol, losartan on hold for SAMANTHA (7) Type 2 diabetes mellitus: A1c: 7.4 on 04/06/2019 -Continue Lantus -Novolog sliding scale per protocol (8) Chronic diastolic (congestive) heart failure: 11/2018 echo: EF: 60-64%, grade II diastolic dysfunction, moderate aortic valve sclerosis Appears euvolemic -Lasix and Losartan on hold for acute renal failure (9) DONALD (obstructive sleep apnea): Intolerant to CPAP (10) Obesity: S/p gastric bypass BMI 47 Lifestyle modifications recommended (11) Hypothyroidism: TSH: 3.2 -Continue levothyroxine DVT Prophylaxis -SCDs Full Code as per discussion with pt DISPOSITION ; discharge home in next 1-2 days if cardiac rhythm remains stable Admission and Anticipated Discharge Date Admission Date: July 04, 2019 Subjective sitting up on chair feels comfortable denies of any chest pain or SOB /no [place] had occasional dizzy spell , no palpitation Review of Systems Review of Systems: All systems reviewed & are unremarkable except as noted in HPI & below Physical Exam Constitutional: WD/WN, vitals as above no acute distress Eyes: PERRL, conjunctivae normal, anicteric sclerae ENMT: external ear and nose normal, oropharynx normal Neck: trachea midline, no thyromegaly Respiratory: normal respiratory effort, lungs clear to auscultation Cardiovascular: RRR, no murmur, no edema Gastrointestinal (Abdomen): normal bowel sounds, soft, nontender, no hep atosplenomegaly Musculoskeletal: no cyanosis or clubbing, extremities motor strength 5/5 Skin: no rashes, warm and dry Neurologic: PERRL, EOMI, accommodation nl, no face palsy, no dysarthria Psychiatric: A+Ox3, euthymic affect Results & Data Results & Data ([facility]) Vital Signs (Past 12 Hours) Vital Signs Temp Pulse Resp BP Pulse Ox 07/05/19 15:39 45 L 162/84 H 07/05/19 15:30 36.6 C 43 L 20 177/120 H 100 07/05/19 11:30 36.6 C 44 L 20 166/71 H 99 07/05/19 07:00 36.4 C L 48 L 18 98
[2019-07-05] MEDS: AMIODARONE 200 MG TAB PO SCH (20:34)
[2019-07-05] MEDS: ATORVASTATIN 40 MG TAB PO SCH (20:35)
--- NOTE | 2019-07-05 22:50 | Electrocardiogram Report ---
Test Reason : Blood Pressure : / mmHG Vent. Rate : 043 BPM Atrial Rate : 043 BPM P-R Int : 140 ms QRS Dur : 096 ms QT Int : 554 ms P-R-T Axes : 000 020 141 degrees QTc Int : 468 ms Marked sinus bradycardia Anterior infarct Abnormal ECG When compared with ECG of 04-JUL-2019 15:27, Premature ventricular complexes are no longer Present Confirmed by Scott Parker ([id number] on 07/05/2019 10:50:22 PM Referred By: REFERRED SELF Confirmed By:Scott Parker
[2019-07-06] MEDS: ACETAMINOPHEN 325 MG TAB PO PRN (05:33)
[2019-07-06] MEDS: PANTOprazole 40 MG TAB PO SCH (05:33)
[2019-07-06] MEDS: LEVOTHYROXINE SODIUM 50 MCG TABLET PO SCH (05:33)
[2019-07-06 06:37] LABS: Albumin Level 3.1 gm/dl (3.4-5.0); BUN Creatinine Ratio 18.2 (10-20); Calcium 7.9 mg/dl (8.5-10.1); Creatinine Clr Calc Pharmacy 34.6 ml/min; Est GFR (African American) 25.9; Est GFR (Non-African American) 22.4; Magnesium 2.4 mg/dl (1.8-2.4); Potassium 4.8 mmol/L (3.5-5.1)
[2019-07-06 06:48] LABS: Bilirubin,Total 0.7 mg/dl (0.2-1); Globulin 3.2 gm/dl (2.5-4.0); Thyroid Stimulating Hormone 4.34 uIu/ml (0.300-4.500); Total Protein 6.3 gm/dl (6.4-8.2)
[2019-07-06] MEDS: INSULIN ASPART 100 UNITS/ML 3 ML PEN SC SCH ×3 (08:26→17:34)
[2019-07-06] MEDS: ISOSORBIDE DINITRATE 10 MG TAB PO SCH ×2 (08:27→12:23)
[2019-07-06] MEDS: FAMOTIDINE 20 MG TAB PO SCH (08:27)
[2019-07-06] MEDS: ASPIRIN 81 MG CHEW PO SCH (08:27)
[2019-07-06] MEDS: AMIODARONE 200 MG TAB PO SCH (08:29)
[2019-07-06] MEDS: CLOPIDOGREL BISULFATE 75 MG TAB PO SCH (08:29)
[2019-07-06] MEDS: LOSARTAN POTASSIUM 50 MG TAB PO SCH (08:30)
[2019-07-06] MEDS: METOPROLOL TARTRATE 25 MG TAB PO SCH (08:54)
[2019-07-06] MEDS ORDERED: cefTRIAXone SODIUM 2,000 MG in DEXTROSE 5% 50 ML IV SCH (09:00)
[2019-07-06] MEDS: INSULIN GLARGINE SOLOSTAR 100 UNITS/ML 3 ML PEN SC SCH (10:01)
--- NOTE | 2019-07-06 13:07 | Cardiology Progress Note ---
Date of Service July 06, 2019 Assessment & Plan (1) Frequent PVCs: (2) Acute kidney injury superimposed on CKD: (3) CAD (coronary artery disease): (4) Obesity: (5) DONALD (obstructive sleep apnea): (6) Near syncope: (7) Cardiomyopathy: The patient has a well-documented longstanding history of frequent PVCs, however, this is been followed closely and she is always maintained in normal ejection fraction. This is also her first syncopal event. Given the frequency of her ectopy at this time along with her symptoms I am concerned that she may have had a run of ventricular tachycardia causing her to lose consciousness. Along with that, we now see a precipitous drop of her LV systolic function that makes me concerned that it may be PVC induced. Unfortunately, her renal function limits my options for antiarrhythmics Given the immediate concern I will start her on amiodarone IV bolus and drip. My hope is that we will see significant PVC suppression without any sustained arrhythmias after the medication has been started. She was counseled on this medication along with the benefits and risks and she is agreeable to use the amiodarone at this time. Should we not see any significant improvement despite amiodarone loading then transfer to [facility] may be necessary for PVC ablation. Consideration may also have to be given to an ischemic evaluation given her extensive history of coronary artery disease, but given her current symptoms and lack of any objective findings of ischemia at this point we will pursue an electrical solution. The patient was also counseled on the potential grave nature of these new findings and she states he understands. Obviously, her electrolytes will be followed very closely and repleted as necessary to maintain potassium greater than 4 and magnesium greater than 2. She does not currently examine his volume overloaded so given her downtrending renal function I believe it would be sosa to give her a trial of normal saline solution and follow her renal function but I would have a very short leash to start diuretics should she show any clinical signs of volume overload. Her aspirin and Plavix should be continued uninterrupted. We will follow very closely. 07/05/19 She is responding beautifully to the amiodarone bolus and her PVCs have significantly decreased and now are only rare. At this point, I will transition her to oral amiodarone 400 mg 2 or 3 times a day based on her heart rates. This will be started this evening after her 24- hour IV load is completed. This will allow us to discharge her to home and follow-up with electrophysiology to discuss an ablation as an outpatient. We also discussed options as an outpatient for her arrhythmias. We discussed using a live ZIO monitor to monitor for any arrhythmias versus a LifeVest there will be able to treat any significant ventricular tachycardia. She will think about which one she prefers. Continue to monitor on telemetry overnight. 07/06/2019 She has responded very well to the amiodarone with a very significant reduction of her PVCs. After further discussion she states that she would prefer to wear a LifeVest on discharge. She is very nervous that she will be discharged today because she very much so wants to attend a family birthday libertarian tomorrow. We will check with insurance and reach out the LifeVest to get her fitted. She is been bradycardic so her metoprolol will be stopped. Will discharge home on amiodarone 400 mg twice daily. No other medication changes will be made. However, she has been rather hypertensive but this appears to be due to anxiety. Her losartan has been stopped so we will substitute amlodipine 5 mg daily to be started now as well. Okay to discharge from a cardiac standpoint once arrangements for LifeVest has been made. My office will call her to arrange follow-up as an outpatient including electrophysiology evaluation, repeat echocardiogram and follow-up with Dr. Olvera. Patient states that she agrees with the above plan and understands that there is a risk of sudden cardiac and further arrhythmias. Subjective Patient seen and examined out of bed in chair, medical records reviewed. States that she is had an uneventful night. Denies any cardiac complaints specifically denies any chest pain, shortness of breath, palpitations, lightheadedness, dizziness or syncope. She is been tolerating her medications without issue. She is very anxious for discharge to attend her great nephew's 2-year-old birthday libertarian tomorrow. Telemetry reviewed: Normal sinus rhythm/bradycardia with occasional to rare PVCs. No sustained runs of ventricular tachycardia Review of Systems Review of Systems: All systems reviewed & are unremarkable except as noted in HPI & below Physical Exam Physical Exam: General: Awake, alert and oriented x 3. No acute distress. HEENT: Normocephalic, atraumatic. Pupils equal, round and reactive to light and accommodation. Extraocular muscles are intact. Anicteric sclera. Moist mucous membranes. Neck: No JVD. No bruit. Cardiovascular: Regular. Positive S-4. Normal S-1 and S-2. No S-3. 3/6 mid to late systolic ejection murmur, greatest at the right sternal border, second intercostal space with radiation to the bilateral carotids. No rubs. Pulmonary: Clear to auscultation bilaterally. No rales, rhonchi, or wheezing. Abdomen: Bowel sounds x 4, soft. No rebound, guarding or tenderness. No organomegaly. Extremities: No clubbing, cyanosis or edema. +2 pedal pulses bilaterally. Skin: Warm and dry. Results & Data Vital Signs (Past 12 Hours) Vital Signs Temp Pulse Pulse Resp BP Pulse Ox 07/06/19 11:53 36.9 C 50 L 18 171/68 H 100 07/06/19 10:28 48 L 07/06/19 08:11 36.5 C 46 L 17 153/84 H 100 07/06/19 04:06 36.4 C L 45 L 16 129/79 100
[2019-07-06] MEDS ORDERED: AMLODIPINE BESYLATE 5 MG TAB PO ONE (13:12)
--- NOTE | 2019-07-06 14:38 | Hospitalist Progress Note ---
Date of Service July 06, 2019 Assessment & Plan (1) Dizziness: symptoms has improved possible due to arrythmia -frequent PVC's appreciate input from cardiology started on IV Amiodarone gtt , noted to have significant improvement on ventricular ectopy changed to PO Amiodarone today beta polo d/romero for bradycardia CARDIOMYOPATHY : significant decline in EF noted 20-25% with global hypokinesis compared to ECHO on 11/2018 : EF was 60% per cardiology -cardiomyopathy possible arrythmia induced cont on Amiodarone pt will need ischemic cardiac work up -repeat ECHO followed by stress test possibly at out patient once cardiac arrythmia is adequately controlled follow with [facility] Cardiology Dr Olvera pt will need Life Vest vs heart monitor /Zio patch asked to contact Cardiology Dayanna husain on tuesday07/06/19 (2) Elevated troponin I level: troponin: 0.46 possible due to ventricular ectopy cardiology following management of PVC as outline above (3) Frequent PVCs: (4) Acute kidney injury superimposed on CKD: Acute nenal failure on admission Cr: 2.5. Baseline Cr: 2.0-2.1. Follows with Dr Darling -cr improved to baseline with IV fluid -- (5) CAD (coronary artery disease): S/P CABG, S/P HAILEY to LAD in 11/2018 -Continue aspirin, Plavix, isosorbide, atorvastatin (6) HTN (hypertension): -Continue metoprolol, losartan on hold for SAMANTHA (7) Type 2 diabetes mellitus: A1c: 7.4 on 04/06/2019 -Continue Lantus -Novolog sliding scale per protocol (8) Chronic diastolic (congestive) heart failure: 11/2018 echo: EF: 60-64%, grade II diastolic dysfunction, moderate aortic valve sclerosis Appears euvolemic resumed Lasix and Losartan as renal function improved to baseline (9) DONALD (obstructive sleep apnea): Intolerant to CPAP (10) Obesity: S/p gastric bypass BMI 47 Lifestyle modifications recommended (11) Hypothyroidism: TSH: 3.2 -Continue levothyroxine DVT Prophylaxis -SCDs Full Code as per discussion with pt DISPOSITION ; discharge home today Admission and Anticipated Discharge Date Admission Date: July 04, 2019 Subjective feels fine denies of any complain of palpitation , dizzy spell , no chest pain eager to be discharged home today Review of Systems Review of Systems: All systems reviewed & are unremarkable except as noted in HPI & below Physical Exam Constitutional: WD/WN, vitals as above no acute distress Eyes: PERRL, conjunctivae normal, anicteric sclerae ENMT: external ear and nose normal, oropharynx normal Neck: trachea midline, no thyromegaly Respiratory: normal respiratory effort, lungs clear to auscultation Cardiovascular: RRR, no murmur, no edema Gastrointestinal (Abdomen): normal bowel sounds, soft, nontender, no hepatosplenomegaly Musculoskeletal: no cyanosis or clubbing, extremities motor strength 5/5 Skin: no rashes, warm and dry Neurologic: PERRL, EOMI, accommodation nl, no face palsy, no dysarthria Psychiatric: A+Ox3, euthymic affect Results & Data Results & Data ([facility]) Vital Signs (Past 12 Hours) Vital Signs Temp Pulse Pulse Resp BP Pulse Ox 07/06/19 11:53 36.9 C 50 L 18 171/68 H 100 07/06/19 10:28 48 L 07/06/19 08:11 36.5 C 46 L 17 153/84 H 100 07/06/19 04:06 36.4 C L 45 L 16 129/79 100
--- NOTE | 2019-07-06 17:16 | Electrocardiogram Report ---
Test Reason : Blood Pressure : / mmHG Vent. Rate : 046 BPM Atrial Rate : 046 BPM P-R Int : 130 ms QRS Dur : 102 ms QT Int : 522 ms P-R-T Axes : 000 037 141 degrees QTc Int : 456 ms Sinus bradycardia Anterior infarct Abnormal ECG When compared with ECG of 05-JUL-2019 09:33, No significant change was found Confirmed by Scott Parker ([id number]) on 07/06/2019 5:15:53 PM Referred By: REFERRED SELF Confirmed By:Scott Parker
--- NOTE | 2019-07-06 17:24 | Discharge Summary ---
Date of Service July 06, 2019 Admission HPI Per Admitting Provider Pt is 59 y/o F with PMH CAD s/p CABG, stent to LAD, HTN, dyslipidemia, chronic resting bradycardia, frequent PVCs, CKD IV, DM II, obesity s/p gastric bypass, DONALD intolerant to CPAP presented to ER with complaint of intermittent dizziness x 1-2 weeks. Patient states his been experiencing a dizziness sensation with walking which she describes as initially feeling "woozy" and feels like she needs to hold onto something. Sometimes she feels like things are spinning around. Has also noticed the sensation with bending over to put files away. Today had episode at work while walking and becoming dizzy and patient states had "blackness of vision" causing patient to fall on right knee. Patient states she could still hear everything does not think that she had complete LOC. Denies any associated chest pain, shortness of breath, palpitations, diaphoresis, nausea, vomiting with these episodes. Patient denies any other episodes of chest pain or shortness of breath. Patient reports her right knee feels stiff after fall today. Patient denies any other injury. Reports has been trying to drink some more water recently thinking she may be dehydrated. Pt states her resting pulse in the 40's. Reports fasting BSG is 120-140s. Unsure of what BP or BSG is after these dizzy episodes. Denies fever/chills, diaphoresis, N/V/D/C, WILDER, other vision changes, neck pain, orthopnea, cough, sore throat, choking, otalgia, rhinorrhea, abdominal pain, paresthesias, weakness, extremity weakness, extremity edema, rashes, urinary symptoms. Denies ill contacts, recent travel. Principal Diagnosis CARDIOMYOPATHY DUE TO ABNORMAL HEART RHYTHM /PREMATURE VENTRICULAR TACHYCARDIA CHRONIC KIDNEY DISEASE Discharge Exam Constitutional WD/WN, vitals as above no acute distress Eyes PERRL, conjunctivae normal, anicteric sclerae ENMT external ear and nose normal, oropharynx normal Neck trachea midline, no thyromegaly Respiratory normal respiratory effort, lungs clear to auscultation Cardiovascular RRR, no murmur, no edema Gastrointestinal (Abdomen) normal bowel sounds, soft, nontender, no hepatosplenomegaly Musculoskeletal no cyanosis or clubbing, extremities motor strength 5/5 Skin no rashes, warm and dry Neurologic PERRL, EOMI, accommodation nl, no face palsy, no dysarthria Psychiatric A+Ox3, euthymic affect Discharge Data Allergies Allergy/AdvReac Type Severity Reaction Status Date / Time lisinopril Allergy Severe Diarrhea Verified 07/04/19 11:07 escitalopram [From Lexapro] AdvReac Severe NAUSEA/VOMI Verified 07/04/19 11:07 TING Consultations 07/04/19 11:51 ED Decision to Admit Stat 07/04/19 13:59 Consult Cardiology Routine 07/04/19 14:59 Consult Case Management - Discharge Planning Routine Hospital Course (1) Dizziness: symptoms has improved possible due to arrythmia -frequent PVC's appreciate input from cardiology started on IV Amiodarone gtt , noted to have significant improvement on ventricular ectopy changed to PO Amiodarone today beta polo d/romero for bradycardia CARDIOMYOPATHY : significant decline in EF noted 20-25% with global hypokinesis compared to ECHO on 11/2018 : EF was 60% per cardiology -cardiomyopathy possible arrythmia induced cont on Amiodarone pt will need ischemic cardiac work up -repeat ECHO followed by stress test possibly at out patient once cardiac arrythmia is adequately controlled follow with [facility] Cardiology Dr Olvera pt will need Life Vest vs heart monitor /Zio patch asked to contact [facility] on tuesday07/06/19 (2) Elevated troponin I level: troponin: 0.46 possible due to ventricular ectopy cardiology following management of PVC as outline above (3) Frequent PVCs: H/O frequent PVCs Pt without report of palpitations -Continue metoprolol -Monitor on tele (4) Acute kidney injury superimposed on CKD: Acute nenal failure on admission Cr: 2.5. Baseline Cr: 2.0-2.1. Follows with Dr Darling -cr improved to baseline with IV fluid -- (5) CAD (coronary artery disease): S/P CABG, S/P HAILEY to LAD in 11/2018 -Continue aspirin, Plavix, isosorbide, atorvastatin (6) HTN (hypertension): -Continue metoprolol, losartan on hold for SAMANTHA (7) Type 2 diabetes mellitus: A1c: 7.4 on 04/06/2019 -Continue Lantus -Novolog sliding scale per protocol (8) Chronic diastolic (congestive) heart failure: 11/2018 echo: EF: 60-64%, grade II diastolic dysfunction, moderate aortic valve sclerosis Appears euvolemic resumed Lasix and Losartan as renal function improved to baseline (9) DONALD (obstructive sleep apnea): Intolerant to CPAP (10) Obesity: S/p gastric bypass BMI 47 Lifestyle modifications recommended (11) Hypothyroidism: TSH: 3.2 -Continue levothyroxine DVT Prophylaxis -SCDs Full Code as per discussion with pt DISPOSITION ; discharge home today Total Time Total Time Spent Total Time Spent (In Minutes): 35mins Total Time Includes: Examination of the Patient, Discharge Planning, Medication Reconciliation and Communication With Other Providers Discharge Plan Discharge Items Patient Disposition: Home - Self-Care Reason For Visit: DIZZINESS Discharge Diagnosis: CARDIOMYOPATHY DUE TO ABNORMAL HEART RHYTHM /PREMATURE VENTRICULAR TACHYCARDIA CHRONIC KIDNEY DISEASE Activity: As commented below Activity Comment: as tolerated Non-emergency contact: Primary Care Provider Call non-emergency contact if: you have any medication questions Follow-up/Referrals: Laxmi Olvera DO [Primary Care Provider] - 07/11/19 12:00 pm (07/11/2019 12:00 PM Provider Laxmi Olvera DO Department Family [facility] ) Caden Olvera DO [Health Sciences Program Coordinator] - (FOLLOW UP WITH CARDIOLOGY ) Diet: Heart Healthy Addtl Attending Provider Instructions: PLEASE CALL [facility] CARDIOLOGY OFFICE ON Tuesday07/09/19 TO SCHEDULE FOR LIFE VEST Pending Studies at Discharge: Yes Stand-Alone Forms: My [facility] [employer], Work/School Release (Inpt), Smoking Cessation Medications and DC Order Prescriptions: New amiodarone 200 mg Tablet 400 mg PO BID 30 Days Qty: 120 RF: 0 amlodipine [Norvasc] 5 mg Tablet 5 mg PO QAM 30 Days Qty: 30 RF: 0 Continued furosemide [Lasix] 40 mg Tablet 40 mg PO DAILY RF: 0 isosorbide dinitrate 10 mg Tablet 10 mg PO BID RF: 0 atorvastatin 80 mg Tablet 80 mg PO PM RF: 0 Lantus U-100 Insulin 100 unit/mL Solution 27 unit SUBCUT DAILY RF: 0 clopidogrel [Plavix] 75 mg Tablet 75 mg PO DAILY RF: 0 famotidine [Pepcid] 20 mg Tablet 20 mg PO DAILY RF: 0 levothyroxine 50 mcg Tablet 50 mcg PO DAILYBB RF: 0 pantoprazole [Protonix] 40 mg Tablet,Delayed Release (Dr/Ec) 40 mg PO DAILYBB RF: 0 losartan 25 mg Tablet 50 mg PO DAILY RF: 0 nitroglycerin [Nitrostat] 0.4 mg Tablet, Sublingual 0.4 mg sublingual DIRECTED PRN (Reason: Chest Pain) RF: 0 aspirin [Aspirin Childrens] 81 mg Tablet,Chewable 81 mg PO DAILY RF: 0 hydrocortisone 2.5 % Cream 1 applic TOPICAL TID PRN (Reason: AFFECTED AREA) RF: 0 biotin 1 mg Tablet 1 mg PO DAILY RF: 0 Discontinued metoprolol tartrate 50 mg Tablet 25 mg PO BID RF: 0 Discharge Orders: Discharge Order (Routine); Ordered 07/06/19 Ordered By: Rosangela Townsend Admission Data Admit Date/Time: 07/04/19 12:14 Attending Provider: Rosangela Townsend Admit Provider: Jeromy Kumari Primary Care Provider: Laxmi Olvera Other Providers: Jeromy Kumari ; Tony Blakely Other Interventions: Discharge Summary Assessment (RN) Last Done: 07/06/19 16:58
[2019-07-07] MEDS ORDERED: AMLODIPINE BESYLATE 5 MG TAB PO SCH (09:00)
== END 2019-07-06 18:24 | disposition home or self-care (01) | DRG 315 ==
LOC: ED 10:24 → 2S 12:14 → SUATTDRO 12:14 → 2S 12:57

== ENCOUNTER 2019-08-10 14:14 | Inpatient (IN) ==
--- NOTE | 2019-08-10 15:28 | XRay Report ---
SINGLE VIEW CHEST CLINICAL HISTORY: Fluid overload. FINDINGS: An AP, portable, upright chest radiograph is compared to study dated 07/04/2019. The examina tion is degraded by portable technique and patient rotation. The patient is status post midline oneil otomy. The heart is enlarged noting atherosclerotic calcification of the thoracic aorta. The pulmonar y vasculature is mildly congested. There are small pleural effusions, right larger than left with pat cely consolidation at the right lung base. No pneumothorax is seen. The skeletal structures are osteop enic. The bony thorax is grossly intact. IMPRESSION: 1. Cardiomegaly with mild pulmonary vascular congestion. 2. There are small pleural effusions with patchy airspace consolidation at the right lung base. Corre late clinically for evidence of pneumonia/aspiration pneumonitis. Radiographic follow-up to resolutio n is recommended. ACT 112: Negative or not required by law. Electronically signed by: Luis Stephenson M.D. 08/10/2019 3:27 PM
[2019-08-10] MEDS ORDERED: FUROSEMIDE 40 MG/4 ML VIAL IV STA (15:40)
--- NOTE | 2019-08-10 15:59 | Emergency Department Note ---
History of Present Illness General Chief complaint: Swelling/Edema to Extremity Stated complaint: retaining fluid, sent by Time Seen by Provider: 08/10/19 15:31 Source: patient Mode of arrival: ambulatory Limitations: no limitations History of Present Illness Maximum Pain Intensity: 0 This patient comes in after having increasing lower extreme edema or weight gain for the last 2 weeks. She says she gained 15 pounds according to her cobol programmer Dr. Olvera, who sent her here for admission. She does have a history of an EF of being 20% and wears a LifeVest. She says she has not had any shocks from this. No chest pain no shortness of breath at rest is primarily dyspnea on exertion. She is been having trouble sleeping and she sleeps upright in a chair primarily. She had mild postnasal drip no cough no COVID type symptoms fever or chills. No focal numbness weakness. No blood or melena in her stool. She is on Plavix. She is had no dizziness or passing out. She was admitted about 1 month ago at the time she had passed out but none since then. She sitting upright in bed and appears in no distress when I initially evaluate her Home Medications Home Medications Medication Instructions Recorded Confirmed Type Lantus U-100 Insulin 27 unit SUBCUT QAM 04/29/19 08/10/19 History aspirin [Aspirin Childrens] 81 mg PO DAILY 04/29/19 08/10/19 History atorvastatin 80 mg PO PM 04/29/19 08/10/19 History biotin 1 mg PO DAILY 04/29/19 08/10/19 History clopidogrel [Plavix] 75 mg PO DAILY 04/29/19 08/10/19 History famotidine [Pepcid] 20 mg PO DAILY PRN 04/29/19 08/10/19 History furosemide [Lasix] 40 mg PO DAILY 04/29/19 08/10/19 History hydrocortisone 1 applic TOPICAL TID PRN 04/29/19 08/10/19 History isosorbide dinitrate 10 mg PO TID 04/29/19 08/10/19 History levothyroxine 50 mcg PO DAILYBB 04/29/19 08/10/19 History nitroglycerin [Nitrostat] 0.4 mg SUBLINGUAL DIRECTED PRN 04/29/19 08/10/19 History pantoprazole [Protonix] 40 mg PO DAILYBB 04/29/19 08/10/19 History amiodarone 200 mg PO AMPM 08/10/19 08/10/19 History amlodipine 5 mg PO DAILY 08/10/19 08/10/19 History cholecalciferol (vitamin D3) 125 mcg PO DAILY 08/10/19 08/10/19 History ferrous sulfate [iron] 325 mg PO DAILY 08/10/19 08/10/19 History Allergies Allergy/AdvReac Type Severity Reaction Status Date / Time lisinopril Allergy Severe Diarrhea Verified 08/10/19 17:31 escitalopram [From Lexapro] AdvReac Severe NAUSEA/VOMI Verified 08/10/19 17:31 TING Past Med/Surg History Medical History CAD (coronary artery disease) Chronic diastolic (congestive) heart failure CKD (chronic kidney disease), stage IV Dyslipidemia (Acute) Frequent PVCs (Acute) HTN (hypertension) Hypothyroidism Major depressive disorder (Acute) Obesity (Acute) DONALD (obstructive sleep apnea) (Acute) Type 2 diabetes mellitus (Acute) Surgical History History of gastric bypass (Acute ~2008) Donn En Y Hx of CABG (Acute ~2004) "CABG, PCI, and stent to the mid RCA in Mar 2004" Status post coronary artery stent placement (Acute ~12/18/18) [id number] Resolute [place] stent to LAD distal to ALEMAN-LAD graft touchdown. 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 Other Information That Helps Us Care for You: No Feels Safe at Home: No Is there a partner from a previous relationship who is making you feel unsafe now?: No Any Concerns about Your Family Situation: No Would You Like to Speak to Someone About Your Situation: No Safety Concerns: Feels Safe At This Time Smoking Status: Never smoker Second Hand Exposure: No ; Hx Alcohol Use: No Hx Substance Use: No Review of Systems A total of 10 systems reviewed and were otherwise negative Physical Exam Vital Signs Vital Signs - 24 hr 08/10/19 14:37 08/10/19 15:53 Temperature 36.8 C Temperature Source Oral Respiratory Rate 20 Respiratory Effort / Characteristics Non-Labored Respiratory Depth Normal Blood Pressure 149/102 H Blood Pressure Mean 117 Pulse Oximetry 95 Oxygen Delivery Method Room Air Room Air Sepsis Recent Fever Within 48 Hours No Sepsis Action Taken by Nursing No Action Required General: Well developed well nourished middle-aged female who appears in no acute distress, breathing comfortably on room air. Normal speech HEENT: Normal cephalic atraumatic. Pupils are equal round and reactive to light. There are anicteric extraocular movements are intact. Oropharynx is pink with moist mucous membranes. No swelling of the mouth lips or tongue. Neck: Supple with a midline trachea. No meningeal signs or stiffness, no JVD or bruits. No Stridor. Chest: Clear to auscultation anteriorly bilaterally. No wheezes or rhonchi. No increased work of breathing. Does have some crackles in the bases bilaterally more so on the right Heart: Regular rate and rhythm without murmurs or gallops. Abdomen: Soft nontender, nondistended without rebound guarding or rigidity. Extremities: No cyanosis or clubbing. She has bilateral pitting edema that goes up above her knees bilaterally no redness or warmth no calf tenderness or assymetry Spine/Back. Non tender to palpation. No CVA tenderness Skin: Good turgor without rashes. Neurologic exam: Cranial nerves two through 12 are intact. Motor and sensation are intact and symmetrical throughout. Course Administered Medications Discontinued Medications Furosemide (Lasix) 60 mg IV NOW STA Stop: 08/10/19 15:41 Last Admin: 08/10/19 18:10 Dose: 60 mg Documented by: [id number] Potassium Chloride (Klor-Con M10) 40 meq PO NOW STA Stop: 08/10/19 18:07 Last Admin: 08/10/19 18:10 Dose: 40 meq Documented by: [id number] Medical Decision Making Differential Diagnosis CHF, arrhythmia, electrolyte or metabolic abnormality acute coronary syndrome, valvular heart disease, electrolyte or metabolic abnormalities, infection, sepsis, COVID Medical Records Attestation: I reviewed the patient's medical records. Home Medications Current Medication List: was personally reviewed by me Laboratory Data Attestation: I reviewed the patient's lab results. Result diagrams: 08/10/19 16:10 08/10/19 16:10 Imaging Data Attestation: I personally reviewed and interpreted this imaging study as follows: My Impression: Chest x-ray: Cardiomegaly with some increased interstitial markings and some increased markings in the base mostly on the right consistent with likely CHF but cannot rule out infiltrate ECG Data Attestation: I personally reviewed and interpreted this ECG as follows: Indication: + SOB/dyspnea Rate (beats per minute): 66 Rhythm: + normal sinus ECG [place]: + Normal ECG ST segments: + T-wave inversions (Lateral); no ST depression and no ST elevation ECG Findings: + PVCs Comparison ECG Date: from (07/06/2019) Change: no significant change Blood Pressure Blood Pressure Findings: Elevated blood pressure Blood Pressure Disposition: further management by hospitalist MDM Narrative This patient comes in after having increasing fluid retention. She has a history of CHF. She was seen by Dr. Mittali was sent here for admission. She appears in no distress. He apparently wanted started on Lasix 60 mg a day and she was given 60 mEq I V here. I discussed with the hospitalist team in order t o come see her in the ER for further treatment and evaluation. The patient does have elevated renal function with a creatinine of 2.65. She is also found of a low potassium of 3.3. We did give her Lasix 60 mEq IV but given her low potassium also gave her 40 meq of potassium chloride p.o. troponin is not elevated. Her chest x-ray does show a likely CHF. She has had no chest pain. They have also COVID tested her which was found to be negative. She was admitted for further diuresis treatment and evaluation. Continuous cardiac monitoring: The patient was placed on a ethylene plant helper, an order was placed. She was noted to be in normal sinus rhythm and a pulse of 65 Impression & Plan CHF (congestive heart failure), Bilateral edema of lower extremity, Lab test negative for COVID-19 virus, LIVINGSTON (dyspnea on exertion) Discharge Plan Visit Data *Final* Discharge Date/Time: 08/10/19 18:48 Chief Complaint: Swelling/Edema to Extremity Stated Complaint: retaining fluid, sent by ED Provider: Davie Croft Discharge Problem: CHF (congestive heart failure), Bilateral edema of lower extremity, Lab test negative for COVID-19 virus, LIVING[place]ON (dyspnea on exertion) Patient Disposition: Admitted As Inpatient Discharge Instructions Interventions: ED Discharge Assessment Last Done: 08/10/19 18:48 Discharge Problem: CHF (congestive heart failure) Qualifiers: Heart failure type: unspecified Heart failure chronicity: acute on chronic Qualified Code(s): I50.9 - Heart failure, unspecified
[2019-08-10 16:31] LABS: Basophils # (auto) 0.02 K/uL (0-0.2); Basophils % (auto) 0.3 %; Eosinophils # (auto) 0.06 K/uL (0-0.5); Eosinophils % (auto) 0.9 %; Hematocrit (blood only) 36.3 % (37-47); Hemoglobin 10.5 g/dL (12.0-16.0); Lymphocytes # (auto) 1.34 K/uL (1.2-3.4); Lymphocytes % (auto) 19.8 %; Mean Corpuscular Hemoglobin 22.7 pg (25-34); Mean Corpuscular Hgb Conc 28.9 g/dL (32-36); Mean Corpuscular Volume 78.6 fL (80-100); Monocytes # (auto) 0.59 K/uL (0.11-0.59); Monocytes % (auto) 8.7 %; Neutrophils # (auto) 4.77 K/uL (1.4-6.5); Neutrophils % (auto) 70.3 %; Platelet Count 221 K/uL (130-400); RDW Coefficient of Variation 17.6 % (11.5-14.5); RDW Standard Deviation 49.4 fL (36.4-46.3); Red Blood Count 4.62 M/uL (4.2-5.4); White Blood Count 6.78 K/uL (4.8-10.8)
[2019-08-10 16:42] LABS: INR 1.2 (0.9-1.1); Partial Thromboplastin Time 29.2 Seconds (21.0-31.0); Prothrombin Time 12.2 Seconds (9.0-12.0)
[2019-08-10 16:45] LABS: Alanine Aminotransferase 19 U/L (12-78); Albumin Level 3.3 gm/dl (3.4-5.0); Aspartate Aminotransferase 16 U/L (15-37); Blood Urea Nitrogen 32 mg/dl (7-18); Calcium 8.4 mg/dl (8.5-10.1); Carbon Dioxide 22 mmol/L (21-32); Chloride 108 mmol/L (98-107); Est GFR (African American) 22.3; Est GFR (Non-African American) 19.2; Glucose 106 mg/dl (70-99); Lipase 92 U/L (73-393); Magnesium 2.2 mg/dl (1.8-2.4); Potassium 3.3 mmol/L (3.5-5.1); Sodium 141 mmol/L (136-145)
[2019-08-10 16:50] LABS: Alkaline Phosphatase 104 U/L (45-117); Bilirubin,Total 0.9 mg/dl (0.2-1); Globulin 3.3 gm/dl (2.5-4.0); Phosphorus 4.5 mg/dl (2.5-4.9); Total Protein 6.6 gm/dl (6.4-8.2); Troponin I < 0.015 ng/ml (0-0.045)
[2019-08-10] MEDS ORDERED: POTASSIUM CHLORIDE 10 MEQ TABCR PO STA (18:06)
--- NOTE | 2019-08-10 18:42 | History & Physical Report ---
Date of Service August 10, 2019 Assessment & Plan (1) Acute on chronic combined systolic (congestive) and diastolic (congestive) heart failure: (2) Acute kidney injury superimposed on CKD: (3) CKD (chronic kidney disease), stage IV: (4) Lower extremity edema: Patient with acute volume overload with CHF exacerbation and 16 lb weight gain. She has severe lower extremity edema up to her thighs, pleural effusions B/L (small), and abdominal fullness. Likely related to volume overload. Discussed patient with Cardiology (Dr. Olvera) who recommended starting patient on IV Lasix 60 mg BID. She was given 1 dose in the ED. She has urinated once since it was given. Continue tomorrow. Labs showing Creatinine 2.65. With acute on chronic kidney injury, consult Nephrology. Consult Cardiology- Dr. Blakely aware. Continue to monitor BP and HR. Strict I&Os Daily weight Sodium restriction of 2 g daily Fluid restriction 1500 ml unless changed by Nephro (5) Bilateral pleural effusion: (6) Right lower lobe pulmonary infiltrate: Pleural effusions likely due to volume overload. Possible infection vs aspiration pneumonitis on CXR as well. Start PO Augmentin- renally dosed for possible infection. Follow COVID test negative (7) CAD (coronary artery disease): (8) Frequent PVCs: (9) Cardiomyopathy: (10) HTN (hypertension): BP elevated in the ED. Will continue to monitor with diuresis. Admit to PCU for telemetry. No chest pain currently. Check Mag, Phos. Recheck CBC, BMP in AM (11) Dyslipidemia: Continue statin (12) Type 2 diabetes mellitus: Last A1C 7.3 as outpatient. Insulin protocol (13) Hypothyroidism: Continue levothyroxine. 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 She was seen at the Cardiology office today as an outpatient and was noted to have progressive [place]IV[place] over the past couple of weeks and 16 lb weight gain. She was previously admitted to [facility] in June 2019 for near syncope. She had an updated Echo which showed severely worsening LV systolic dysfunction. She had repeat Echo as an outpatient today which showed EF 25-29%, diffuse hypokinesis/akinesis, elevated right atri al pressure of 15 mmHg, Grade III diastolic dysfunction, Pulmonary HTN with Pulmonary artery systolic pressure of 56 mmHg. He Lasix was held for 3 days in July due to worsening creatinine. She typically has a baseline creatinine around 2.0-2.1. Recently, it has been up to 2.8. She has noted worsening edema at home, increased abdominal fullness/bloating, and poor appetite. Dr. Olvera recommended that the patient be admitted to the hospital for IV diuresis and close monitoring due to cardiorenal syndrome and worsening creatinine recently. She denies chest pain, lightheadedness, dizziness, WILDER, dysphagia, abdominal pain, N/V/D/C, or urinary symptoms. No cough. She has had some mild congestion on and off which Flonase helped. She also notices some 'gurgling' in her throat when she lays down at night sometimes. This causes her to have problems sleeping. She also states that she can feel her heart beating in her throat at times which keeps her up at night. She was previously on Losartan, but it was discontinued because of worsening CKD. Following her admission in June, she was sent home with a life vest. Discussed patient with Dr. Olvera in Cardiolgy this morning who recommended starting IV Lasix 60 mg BID for now and monitoring the patient closely. Upon presentation, patient has CXR which showed some small pleural effusions and RLL patchy consolidation- consider pneumonia vs aspiration pneumonitis per the radiologist. Allergies Allergy/AdvReac Type Severity Reaction Status Date / Time lisinopril Allergy Severe Diarrhea Verified 08/10/19 17:31 escitalopram [From Lexapro] AdvReac Severe NAUSEA/VOMI Verified 08/10/19 17:31 TING Home Medications Home Medications Medication Instructions Recorded Confirmed Type Lantus U-100 Insulin 27 unit SUBCUT QA 04/29/19 08/10/19 History aspirin [Aspirin Childrens] 81 mg PO DAILY 04/29/19 08/10/19 History atorvastatin 80 mg PO PM 04/29/19 08/10/19 History biotin 1 mg PO DAILY 04/29/19 08/10/19 History clopidogrel [Plavix] 75 mg PO DAILY 04/29/19 08/10/19 History famotidine [Pepcid] 20 mg PO DAILY PRN 04/29/19 08/10/19 History furosemide [Lasix] 40 mg PO DAILY 04/29/19 08/10/19 History hydrocortisone 1 applic TOPICAL TID PRN 04/29/19 08/10/19 History isosorbide dinitrate 10 mg PO TID 04/29/19 08/10/19 History levothyroxine 50 mcg PO DAILYBB 04/29/19 08/10/19 History nitroglycerin [Nitrostat] 0.4 mg SUBLINGUAL DIRECTED PRN 04/29/19 08/10/19 History pantoprazole [Protonix] 40 mg PO DAILYBB 04/29/19 08/10/19 History amiodarone 200 mg PO AMPM 08/10/19 08/10/19 History amlodipine 5 mg PO DAILY 08/10/19 08/10/19 History cholecalciferol (vitamin D3) 125 mcg PO DAILY 08/10/19 08/10/19 History ferrous sulfate [iron] 325 mg PO DAILY 08/10/19 08/10/19 History Past Med/Surg History Medical History CAD (coronary artery disease) Chronic diastolic (congestive) heart failure CKD (chronic kidney disease), stage IV Dyslipidemia (Acute) Frequent PVCs (Acute) HTN (hypertension) Hypothyroidism Major depressive disorder (Acute) Obesity (Acute) DONALD (obstructive sleep apnea) (Acute) Type 2 diabetes mellitus (Acute) Surgical History History of gastric bypass (Acute ~2008) Donn En Y Hx of CABG (Acute ~2004) "CABG, PCI, and stent to the mid RCA in Mar 2004" Status post coronary artery stent placement (Acute ~12/18/18) [id number] Resolute [place] stent to LAD distal to ALEMAN-LAD graft touchdown. 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 Cole's addendum for detailed exam. Constitutional: WD/WN, vitals as above Eyes: PERRL, conjunctivae normal, anicteric sclerae Neck: trachea midline, no thyromegaly Respiratory: normal respiratory effort; no respiratory distress and no labored breathing Cardiovascular: Rate/Rhythm: regular rate Extremities: + edema (Severe edema in the B/L LE up to thighs) Skin: no rashes, warm and dry Results & Data Results & Data ([facility]) Vital Signs (Past 12 Hours) Vital Signs Temp Pulse Resp BP BP Pulse Ox 08/10/19 18:30 76 16 155/62 H 92 08/10/19 17:27 58 L 20 175/78 H 96 08/10/19 14:37 36.8 C 20 149/102 H 95 Laboratory Results Laboratory Results - last 24 hr 08/10/19 08/10/19 08/10/19 16:10 16:10 16:10 WBC 6.78 RBC 4.62 Hgb 10.5 L Hct 36.3 L MCV 78.6 L MCH 22.7 L MCHC 28.9 L RDW Std Deviation 49.4 H RDW Coeff of Kami 17.6 H Plt Count 221 MPV 11.0 H Immature Gran % (Auto) 0.0 Neut % (Auto) 70.3 Lymph % (Auto) 19.8 [place] % (Auto) 8.7 Eos % (Auto) 0.9 Baso % (Auto) 0.3 Immature Gran # (Auto) 0.00 Neut # (Auto) 4.77 Lymph # (Auto) 1.34 [place] # (Auto) 0.59 Eos # (Auto) 0.06 Baso # (Auto) 0.02 PT 12.2 H INR 1.2 H APTT 29.2 PTT Ratio 1.0 Sodium 141 Potassium 3.3 L Chloride 108 H Carbon Dioxide 22 Anion Gap 10.0 BUN 32 H Creatinine 2.65 H Est Cr Clr Drug Dosing 32.0 Est GFR ( Amer) 22.3 Est GFR (Non-Af Amer) 19.2 BUN/Creatinine Ratio 12.0 Glucose 106 H Lactate Calcium 8.4 L Phosphorus 4.5 Magnesium 2.2 Total Bilirubin 0.9 AST 16 ALT 19 Alkaline Phosphatase 104 Troponin I < 0.015 Total Protein 6.6 Albumin 3.3 L Globulin 3.3 Albumin/Globulin Ratio 1.0 Lipase 92 Procalcitonin COVID-19 PCR 08/10/19 08/10/19 08/10/19 16:10 16:10 17:40 WBC RBC Hgb Hct MCV MCH MCHC RDW Std Deviation RDW Coeff of Kami Plt Count MPV Immature Gran % (Auto) Neut % (Auto) Lymph % (Auto) [place] % (Auto) Eos % (Auto) Baso % (Auto) Immature Gran # (Auto) Neut # (Auto) Lymph # (Auto) [place] # (Auto) Eos # (Auto) Baso # (Auto) PT INR APTT PTT Ratio Sodium Potassium Chloride Carbon Dioxide Anion Gap BUN Creatinine Est Cr Clr Drug Dosing Est GFR ( Amer) Est GFR (Non-Af Amer) BUN/Creatinine Ratio Glucose Lactate 1.0 Calcium Phosphorus Magnesium Total Bilirubin AST ALT Alkaline Phosphatase Troponin I Total Protein Albumin Globulin Albumin/Globulin Ratio Lipase Procalcitonin < 0.05 COVID-19 PCR NEGATIVE Diagnostic Findings CXR: IMPRESSION: 1. Cardiomegaly with mild pulmonary vascular congestion. 2. There are small pleural effusions with patchy airspace consolidation at the right lung base. Correlate clinically for evidence of pneumonia/aspiration pneumonitis. Radiographic follow-up to resolution is recommended. Code Status & VTE Plan VTE Prophylaxis Plan VTE Prophylaxis will be ordered: Yes Supervising Physician Co-Signing Physician Notes Patient is a 59-year-old female with history of diabetes mellitus, CHF, PVCs, CKD stage IV, hypothyroidism and other medical problems presents with history of progressively worsening dyspnea on exertion, weight gain of 16 pounds and leg swellings since 2 weeks duration. Patient had routine echo as outpatient and was noted to have EF 25 to 29%, diffuse hypokinesis akinesis, grade 3 diastolic dysfunction, Pulm HTN. Patient was sent to ED for further evaluation by her fire control technician b Dr. Olvera. CXR showed cardiomegaly with mild pulmonary vascular congestion. Also showed findings suggestive of patchy airspace consolidation in the right lung base. Patient denies any cough, fever, chills. Her COVID screen was negative. Please review HPI for complete details of presentation. On examination patient is morbidly obese, no apparent distress, normocephalic atraumatic, lungs normal breath sounds, basal crackles, S1-S2, no murmur, abdomen soft nontender, bowel sounds are present, bilateral lower extremity edema, grossly no focal neurological deficits. Patient is admitted for management of acute on chronic systolic and diastolic CHF exacerbation, SAMANTHA, possible pneumonia. Agree with IV Lasix 60 mg twice daily, I's and O's, daily weight, cardiology consulted, fluid and salt restriction. Given possibility of cardiorenal syndrome, SAMANTHA on CKD. Consulted nephrology as well. Monitor renal function closely. Procalcitonin within normal limits. Started on Augmentin empirically. I personally reviewed the record. Patient is interviewed and examined at bedside. Patient's care is coordinated with Ranjana Vincent PA-C. Please refer to the documentation above for details of patient's presentation and for discussion of other issues.
--- NOTE | 2019-08-10 19:24 | Electrocardiogram Report ---
Test Reason : Blood Pressure : / mmHG Vent. Rate : 066 BPM Atrial Rate : 066 BPM P-R Int : 172 ms QRS Dur : 080 ms QT Int : 470 ms P-R-T Axes : 061 057 159 degrees QTc Int : 492 ms Poor data quality, interpretation may be adversely affected Sinus rhythm with frequent Premature ventricular complexes Poor R wave progression, consider anterior OH vs. lead placement vs. LVH Abnormal ECG When compared with ECG of 06-JUL-2019 09:03, Premature ventricular complexes are now Present Questionable change in QRS duration Questionable change in initial forces of Anterolateral leads Confirmed by Gera Sethi [id number]) on 08/10/2019 7:24:30 PM Referred By: ED Confirmed By:Froylan Sethi
[2019-08-10] MEDS ORDERED: DEXTROSE 50% 50 ML SYRINGE IV PRN (20:02)
[2019-08-10] MEDS ORDERED: CARBOHYDRATES FOR HYPOGLYCEMIA PO PRN (20:02)
[2019-08-10] MEDS ORDERED: GLUCOSE 40% GEL 15 GM TUBE PO PRN (20:02)
[2019-08-10] MEDS ORDERED: GLUCAGON FOR INJ 1 MG VIAL SQ PRN (20:02)
[2019-08-10] MEDS ORDERED: GLUCOSE 10 TABS/TUBE PO PRN (20:02)
[2019-08-10] MEDS ORDERED: FAMOTIDINE 20 MG TAB PO PRN (20:05)
[2019-08-10] MEDS ORDERED: FUROSEMIDE 40 MG/4 ML VIAL IV SCH (21:00)
[2019-08-10] MEDS: FUROSEMIDE 60 MG in SYRINGE 0 ML IV SCH (22:05)
[2019-08-10] MEDS: HEPARIN SOD 5,000 UNIT/0.5 ML VIAL SQ SCH (22:06)
[2019-08-10] MEDS: INSULIN ASPART 100 UNITS/ML 3 ML PEN SC SCH (22:10)
[2019-08-10] MEDS: INSULIN GLARGINE SOLOSTAR 100 UNITS/ML 3 ML PEN SC SCH ×2 (22:13→22:56)
[2019-08-10] MEDS: ATORVASTATIN 40 MG TAB PO SCH (22:13)
[2019-08-10] MEDS: ISOSORBIDE DINITRATE 10 MG TAB PO SCH (22:15)
[2019-08-10] MEDS: AMOXICILLIN/CLAVULANATE 500 MG TAB PO SCH (22:15)
[2019-08-10] MEDS: AMIODARONE 200 MG TAB PO SCH (22:15)
[2019-08-11 00:21] LABS: Appearance Urine Clear (Clear); Bilirubin Urine Negative (Negative); Blood Urine Negative (Negative); Color Urine Yellow; Glucose Urine UA Negative (Negative); Ketones Urine Negative (Negative); Leukocyte Esterase Urine Negative (Negative); Nitrite Urine Negative (Negative); Protein Urine Negative (Negative); Specific Gravity Urine 1.014 (1.000-1.030); Urobilinogen Urine Negative (Negative)
[2019-08-11 05:01] LABS: Hematocrit (blood only) 34.8 % (37-47); Mean Corpuscular Hemoglobin 22.7 pg (25-34); Mean Corpuscular Hgb Conc 28.7 g/dL (32-36); Mean Corpuscular Volume 79.1 fL (80-100); Mean Platelet Volume 11.5 fL (7.4-10.4); Platelet Count 206 K/uL (130-400); RDW Coefficient of Variation 17.7 % (11.5-14.5); RDW Standard Deviation 50.8 fL (36.4-46.3); White Blood Count 5.98 K/uL (4.8-10.8)
[2019-08-11 05:12] LABS: BUN Creatinine Ratio 13.4 (10-20); Calcium 8.1 mg/dl (8.5-10.1); Creatinine Clr Calc Pharmacy 32.6 ml/min; Est GFR (African American) 22.6; Est GFR (Non-African American) 19.5; Magnesium 2.2 mg/dl (1.8-2.4); Potassium 3.2 mmol/L (3.5-5.1)
[2019-08-11] MEDS ORDERED: POTASSIUM CHLORIDE 20 MEQ TABCR PO STA (06:19)
[2019-08-11] MEDS: HEPARIN SOD 5,000 UNIT/0.5 ML VIAL SQ SCH ×3 (06:25→20:04)
[2019-08-11] MEDS: LEVOTHYROXINE SODIUM 50 MCG TABLET PO SCH (06:26)
[2019-08-11] MEDS: PANTOprazole 40 MG TAB PO SCH (06:26)
[2019-08-11] MEDS: ISOSORBIDE DINITRATE 10 MG TAB PO SCH ×3 (07:43→18:21)
[2019-08-11] MEDS: INSULIN ASPART 100 UNITS/ML 3 ML PEN SC SCH ×4 (07:45→20:05)
[2019-08-11] MEDS: AMOXICILLIN/CLAVULANATE 500 MG TAB PO SCH ×2 (08:55→18:21)
[2019-08-11] MEDS: AMIODARONE 200 MG TAB PO SCH ×2 (08:55→20:03)
[2019-08-11] MEDS: CHOLECALCIFEROL 1,000 UNITS 25 MCG TAB PO SCH (08:55)
[2019-08-11] MEDS: FUROSEMIDE 60 MG in SYRINGE 0 ML IV SCH (08:55)
[2019-08-11] MEDS: FERROUS SULFATE 325 MG TAB PO SCH (08:56)
[2019-08-11] MEDS: CLOPIDOGREL BISULFATE 75 MG TAB PO SCH (08:56)
[2019-08-11] MEDS: AMLODIPINE BESYLATE 5 MG TAB PO SCH (08:56)
[2019-08-11] MEDS: INSULIN GLARGINE SOLOSTAR 100 UNITS/ML 3 ML PEN SC SCH ×2 (08:56→20:05)
[2019-08-11] MEDS: ASPIRIN 81 MG CHEW PO SCH (08:57)
--- NOTE | 2019-08-11 09:03 | Cardiology Consultation ---
Date of Consultation August 11, 2019 Assessment & Plan (1) CHF (congestive heart failure): (2) Bilateral edema of lower extremity: (3) [place] (dyspnea on exertion): (4) Bilateral pleural effusion: (5) Acute on chronic combined systolic (congestive) and diastolic (congestive) heart failure: (6) Cardiomyopathy: (7) CAD (coronary artery disease): (8) Type 2 diabetes mellitus: (9) Obesity: Thus far the patient is diuresing with IV diuretics. I would continue the IV Lasix. I think while we have her here in the hospital she should be reevaluated for sleep apnea with a nocturnal pulse oximeter. She has been tested for sleep apnea in the past and states she had a borderline test but this was several years ago. Continue with the LifeVest. Thus far her creatinine is remaining at baseline but if it is going to increase due to the diuresis we may have to have nephrology see her. History of Present Illness Attending Physician: Benjamin Sheets MD History of Present Illness This is a 59-year-old female with a long history of ischemic heart disease. She underwent coronary artery bypass surgery at age 41. She has an ischemic cardiomyopathy with a previous anterior wall myocardial infarction. In June she was admitted to this hospital following syncope and was found to have frequent PVCs along with poor LV function with an estimated left ventricular ejection fraction of around 20%. The patient was started on guideline directed medications, amiodarone and given a LifeVest. She was doing well up until 2 to 3 weeks ago when her Lasix was held due to an elevated creatinine. She does have known chronic kidney disease and is followed by nephrology. She states she stopped the medication for several days and then resumed her diuretics but had a cascade of increasing weight, lower extremity edema and dyspnea on exertion. She was seen in the office yesterday by Dr. Gibson who noted a 16 pound weight gain. She was admitted to the hospital and started on IV diuretics and is thus far having good diuresis. She has had no chest pain. No further syncope. Past cardiac history: 1. Acute on chronic systolic heart failure with cardiorenal syndrome. 2. Frequent PVCs noted with suspected episode of nonsustained ventricular tachycardia. LV systolic function markedly reduced with an estimated ejection fraction of 20 to 24% per echocardiogram. Amiodarone initiated with intention of suppressing PVCs and subsequent improvement of LV function. Patient currently wearing "life vest". Previous noninvasive testing indicates an anterior myocardial scar with reduced left ventricular ejection fraction due to an ischemic cardiomyopathy 3. Ischemic cardiomyopathy with abnormal Lexiscan nuclear stress testing fall 2018 prompting cardiac catheterization and subsequent drug-eluting stent implantation to left anterior descending artery. History of previous coronary artery bypass surgery at age 41 [facility] and coronary stent placement in the [place] LAD before the anastomotic site of a patent ALEMAN graft with severe diffuse disease of the LAD. 4. Hypertension - controlled 5. Chronic kidney disease stage 4 6. Frequent premature ventricular complexes 7. Dyslipidemia, goal LDL less than 70 mg/dl - tolerating atorvastatin. 8. Mild obstructive sleep apnea - polysomnography completed May 24, 2015; patient has not followed up with sleep medicine 9. Diabetes -2, controlled with most recent hemoglobin A1c 6.8% Allergies Allergy/AdvReac Type Severity Reaction Status Date / Time lisinopril Allergy Severe Diarrhea Verified 08/10/19 17:31 escitalopram [From Lexapro] AdvReac Severe NAUSEA/VOMI Verified 08/10/19 17:31 TING Home Medications Home Medications Medication Instructions Recorded Confirmed Type Lantus U-100 Insulin 27 unit SUBCUT QAM 04/29/19 08/10/19 History aspirin [Aspirin Childrens] 81 mg PO DAILY 04/29/19 08/10/19 History atorvastatin 80 mg PO PM 04/29/19 08/10/19 History biotin 1 mg PO DAILY 04/29/19 08/10/19 History clopidogrel [Plavix] 75 mg PO DAILY 04/29/19 08/10/19 History famotidine [Pepcid] 20 mg PO DAILY PRN 04/29/19 08/10/19 History furosemide [Lasix] 40 mg PO DAILY 04/29/19 08/10/19 History hydrocortisone 1 applic TOPICAL TID PRN 04/29/19 08/10/19 History isosorbide dinitrate 10 mg PO TID 04/29/19 08/10/19 History levothyroxine 50 mcg PO DAILYBB 04/29/19 08/10/19 History nitroglycerin [Nitrostat] 0.4 mg SUBLINGUAL DIRECTED PRN 04/29/19 08/10/19 History pantoprazole [Protonix] 40 mg PO DAILYBB 04/29/19 08/10/19 History amiodarone 200 mg PO AMPM 08/10/19 08/10/19 History amlodipine 5 mg PO DAILY 08/10/19 08/10/19 History cholecalciferol (vitamin D3) 125 mcg PO DAILY 08/10/19 08/10/19 History ferrous sulfate [iron] 325 mg PO DAILY 08/10/19 08/10/19 History Patient History Medical History CAD (coronary artery disease) Chronic diastolic (congestive) heart failure CKD (chronic kidney disease), stage IV Dyslipidemia (Acute) Frequent PVCs (Acute) HTN (hypertension) Hypothyroidism Major depressive disorder (Acute) Obesity (Acute) DONALD (obstructive sleep apnea) (Acute) Type 2 diabetes mellitus (Acute) Surgical History History of gastric bypass (Acute ~2008) Donn En Y Hx of CABG (Acute ~2004) "CABG, PCI, and stent to the mid RCA in Mar 2004" Status post coronary artery stent placement (Acute ~12/18/18) [id number] Resolute Fernando stent to LAD distal to ALEMAN-LAD graft touchdown. 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 Physical Exam Physical Exam: General: Morbidly obese, alert and oriented Head: normocephalic, no masses, lesions, tenderness or abnormalities Eyes: conjunctiva are pink and non-injected, sclera clear Neck: supple, no adenopathy, no bruits, normal jugular venous pulse, no hepatojugular reflux Chest: normal shape and normal respiratory effort Lungs: clear to auscultation and percussion Cardiac Exam: - regular rate & rhythm, no murmurs gallops or rubs - normal S1, normal S2 Pulses: 2(+) throughout Abdomen: abdomen soft, non-tender, no abnormal masses and no hepatosplenomegaly Musculoskeletal: no gait disturbance, no joint inflammation, no deforming arthritis Extremities: Bilateral lower extremity edema Neuro: grossly normal exam Results & Data ([facility]) Vital Signs (Past 12 Hours) Vital Signs Temp Pulse Pulse Resp BP Pulse Ox 08/11/19 07:23 36.7 C 74 20 151/72 H 96 08/11/19 03:21 36.6 C 65 16 139/66 95 08/11/19 00:00 79 08/10/19 23:14 36.6 C 62 14 165/76 H 94 Laboratory Results Laboratory Results - last 24 hr 08/10/19 08/10/19 08/10/19 16:10 16:10 16:10 WBC 6.78 RBC 4.62 Hgb 10.5 L Hct 36.3 L MCV 78.6 L MCH 22.7 L MCHC 28.9 L RDW Std Deviation 49.4 H RDW Coeff of Kami 17.6 H Plt Count 221 MPV 11.0 H Immature Gran % (Auto) 0.0 Neut % (Auto) 70.3 Lymph % (Auto) 19.8 Mclennan % (Auto) 8.7 Eos % (Auto) 0.9 Baso % (Auto) 0.3 Immature Gran # (Auto) 0.00 Neut # (Auto) 4.77 Lymph # (Auto) 1.34 Mclennan # (Auto) 0.59 Eos # (Auto) 0.06 Baso # (Auto) 0.02 PT 12.2 H INR 1.2 H APTT 29.2 PTT Ratio 1.0 Sodium 141 Potassium 3.3 L Chloride 108 H Carbon Dioxide 22 Anion Gap 10.0 BUN 32 H Creatinine 2.65 H Est Cr Clr Drug Dosing 32.0 Est GFR ( Amer) 22.3 Est GFR (Non-Af Amer) 19.2 BUN/Creatinine Ratio 12.0 Glucose 106 H POC Glucose Lactate Calcium 8.4 L Phosphorus 4.5 Magnesium 2.2 Total Bilirubin 0.9 AST 16 ALT 19 Alkaline Phosphatase 104 Troponin I < 0.015 Total Protein 6.6 Albumin 3.3 L Globulin 3.3 Albumin/Globulin Ratio 1.0 Lipase 92 Procalcitonin Urine Color Urine Appearance Urine pH Ur Specific Spencer Urine Protein Urine Glucose (UA) Urine Ketones Urine Blood Urine Nitrite Urine Bilirubin Urine Urobilinogen Ur Leukocyte Esterase Nasal Screen MRSA (PCR) COVID-19 PCR Hepatitis C Ab Screen 08/10/19 08/10/19 08/10/19 16:10 16:10 16:10 WBC RBC Hgb Hct MCV MCH MCHC RDW Std Deviation RDW Coeff of Kami Plt Count MPV Immature Gran % (Auto) Neut % (Auto) Lymph % (Auto) Mclennan % (Auto) Eos % (Auto) Baso % (Auto) Immature Gran # (Auto) Neut # (Auto) Lymph # (Auto) Mclennan # (Auto) Eos # (Auto) Baso # (Auto) PT INR APTT PTT Ratio Sodium Potassium Chloride Carbon Dioxide Anion Gap BUN Creatinine Est Cr Clr Drug Dosing Est GFR ( Amer) Est GFR (Non-Af Amer) BUN/Creatinine Ratio Glucose POC Glucose Lactate Calcium Phosphorus Magnesium Total Bilirubin AST ALT Alkaline Phosphatase Troponin I Total Protein Albumin Globulin Albumin/Globulin Ratio Lipase Procalcitonin < 0.05 Urine Color Urine Appearance Urine pH Ur Specific Spencer Urine Protein Urine Glucose (UA) Urine Ketones Urine Blood Urine Nitrite Urine Bilirubin Urine Urobilinogen Ur Leukocyte Esterase Nasal Screen MRSA (PCR) COVID-19 PCR NEGATIVE Hepatitis C Ab Screen Neg 08/10/19 08/10/19 08/10/19 17:40 19:59 21:54 WBC RBC Hgb Hct MCV MCH MCHC RDW Std Deviation RDW Coeff of Kami Plt Count MPV Immature Gran % (Auto) Neut % (Auto) Lymph % (Auto) Mclennan % (Auto) Eos % (Auto) Baso % (Auto) Immature Gran # (Auto) Neut # (Auto) Lymph # (Auto) Mclennan # (Auto) Eos # (Auto) Baso # (Auto) PT INR APTT PTT Ratio Sodium Potassium Chloride Carbon Dioxide Anion Gap BUN Creatinine Est Cr Clr Drug Dosing Est GFR ( Amer) Est GFR (Non-Af Amer) BUN/Creatinine Ratio Glucose POC Glucose 146 H Lactate 1.0 Calcium Phosphorus Magnesium Total Bilirubin AST ALT Alkaline Phosphatase Troponin I Total Protein Albumin Globulin Albumin/Globulin Ratio Lipase Procalcitonin Urine Color Urine Appearance Urine pH Ur Specific Spencer Urine Protein Urine Glucose (UA) Urine Ketones Urine Blood Urine Nitrite Urine Bilirubin Urine Urobilinogen Ur Leukocyte Esterase Nasal Screen MRSA (PCR) Negative COVID-19 PCR Hepatitis C Ab Screen 08/10/19 08/11/19 08/11/19 23:15 04:13 04:13 WBC 5.98 RBC 4.40 Hgb 10.0 L Hct 34.8 L MCV 79.1 L MCH 22.7 L MCHC 28.7 L RDW Std Deviation 50.8 H RDW Coeff of Kami 17.7 H Plt Count 206 MPV 11.5 H Immature Gran % (Auto) Neut % (Auto) Lymph % (Auto) Mclennan % (Auto) Eos % (Auto) Baso % (Auto) Immature Gran # (Auto) Neut # (Auto) Lymph # (Auto) Mclennan # (Auto) Eos # (Auto) Baso # (Auto) PT INR APTT PTT Ratio Sodium 143 Potassium 3.2 L Chloride 109 H Carbon Dioxide 26 Anion Gap 8.0 BUN 35 H Creatinine 2.62 H Est Cr Clr Drug Dosing 32.6 Est GFR ( Amer) 22.6 Est GFR (Non-Af Amer) 19.5 BUN/Creatinine Ratio 13.4 Glucose 89 POC Glucose Lactate Calcium 8.1 L Phosphorus Magnesium 2.2 Total Bilirubin AST ALT Alkaline Phosphatase Troponin I Total Protein Albumin Globulin Albumin/Globulin Ratio Lipase Procalcitonin Urine Color Yellow Urine Appearance Clear Urine pH 5.0 Ur Specific Spencer 1.014 Urine Protein Negative Urine Glucose (UA) Negative Urine Ketones Negative Urine Blood Negative Urine Nitrite Negative Urine Bilirubin Negative Urine Urobilinogen Negative Ur Leukocyte Esterase Negative Nasal Screen MRSA (PCR) COVID-19 PCR Hepatitis C Ab Screen 08/11/19 07:02 WBC RBC Hgb Hct MCV MCH MCHC RDW Std Deviation RDW Coeff of Kami Plt Count MPV Immature Gran % (Auto) Neut % (Auto) Lymph % (Auto) Mclennan % (Auto) Eos % (Auto) Baso % (Auto) Immature Gran # (Auto) Neut # (Auto) Lymph # (Auto) Mclennan # (Auto) Eos # (Auto) Baso # (Auto) PT INR APTT PTT Ratio Sodium Potassium Chloride Carbon Dioxide Anion Gap BUN Creatinine Est Cr Clr Drug Dosing Est GFR ( Amer) Est GFR (Non-Af Amer) BUN/Creatinine Ratio Glucose POC Glucose 93 Lactate Calcium Phosphorus Magnesium Total Bilirubin AST ALT Alkaline Phosphatase Troponin I Total Protein Albumin Globulin Albumin/Globulin Ratio Lipase Procalcitonin Urine Color Urine Appearance Urine pH Ur Specific Spencer Urine Protein Urine Glucose (UA) Urine Ketones Urine Blood Urine Nitrite Urine Bilirubin Urine Urobilinogen Ur Leukocyte Esterase Nasal Screen MRSA (PCR) COVID-19 PCR Hepatitis C Ab Screen Medications Administered Current Inpatient Medications Acetaminophen (Tylenol) 650 mg PO Q4H PRN PRN Reason: Pain or Fever Stop: 09/09/19 20:01 Amiodarone HCl (Cordarone) 200 mg PO BID [facility] Stop: 09/09/19 20:59 Last Admin: 08/11/19 08:55 Dose: 200 mg Documented by: Amlodipine Besylate (Norvasc) 5 mg PO DAILY [facility] Stop: 09/10/19 08:59 Last Admin: 08/11/19 08:56 Dose: 5 mg Documented by: Amoxicillin/Clavulanate Potassium (Augmentin 500mg) 1 tab PO BIDM [facility] Stop: 08/17/19 20:59 Last Admin: 08/11/19 08:55 Dose: 1 tab Documented by: Aspirin (Aspirin Chew) 81 mg PO DAILY [facility] Stop: 09/10/19 08:59 Last Admin: 08/11/19 08:57 Dose: 81 mg Documented by: Atorvastatin Calcium (Lipitor) 80 mg PO PM [facility] Stop: 09/09/19 20:59 Last Admin: 08/10/19 22:13 Dose: 80 mg Documented by: Clopidogrel Bisulfate (Plavix) 75 mg PO DAILY [facility] Stop: 09/10/19 08:59 Last Admin: 08/11/19 08:56 Dose: 75 mg Documented by: Dextrose (Dextrose 50%) 25 - 50 ml IV UD PRN; Protocol PRN Reason: Hypoglycemia Protocol Stop: 09/09/19 20:01 Famotidine (Pepcid) 20 mg PO DAILY PRN PRN Reason: Gi Upset Stop: 09/09/19 20:04 Ferrous Sulfate (Feosol) 325 mg PO DAILY [facility] Stop: 09/10/19 08:59 Last Admin: 08/11/19 08:56 Dose: 325 mg Documented by: Glucagon (Glucagen) 1 mg SQ UD PRN; Protocol PRN Reason: Hypoglycemia Protocol Stop: 09/09/19 20:01 Glucose (Dex4 Glucose) 4 - 8 tabs PO UD PRN; Protocol PRN Reason: Hypoglycemia Protocol Stop: 09/09/19 20:01 Glucose (Glucose 40%) 15 - 30 gm PO UD PRN; Protocol PRN Reason: Hypoglycemia Protocol Stop: 09/09/19 20:01 Heparin Sodium (Porcine) (Heparin Sodium (Porcine)) 5,000 units SQ Q8 ABNER Stop: 09/09/19 21:59 Last Admin: 08/11/19 06:25 Dose: 5,000 units Documented by: Furosemide 60 mg/ Syringe 6 mls @ 4 mls/min IV [id number] ABNER Stop: 09/09/19 21:59 Last Admin: 08/11/19 08:55 Dose: 4 mls/min Documented by: Insulin Aspart (Novolog Flexpen) 0 units SC ACHS ABNER Stop: 09/09/19 20:59 Last Admin: 08/11/19 07:45 Dose: Not Given Documented by: Insulin Glargine (Lantus Solostar Pen) 27 units SC BID ABNER Stop: 09/09/19 20:59 Last Admin: 08/11/19 08:56 Dose: Not Given Documented by: Isosorbide Dinitrate (Isordil) 10 mg PO TID@0700,1200,1700 ABNER Stop: 09/09/19 20:59 Last Admin: 08/11/19 07:43 Dose: 10 mg Documented by: Levothyroxine Sodium (Synthroid) 50 mcg PO DAILYBB [facility] Stop: 09/10/19 06:29 Last Admin: 08/11/19 06:26 Dose: 50 mcg Documented by: Miscellaneous (Carbohydrates For Hypoglycemia) 15 - 30 gm PO UD PRN PRN Reason: Hypoglycemia Protocol Stop: 09/09/19 20:01 Pantoprazole Sodium (Protonix) 40 mg PO DAILYBB [facility] Stop: 09/10/19 06:29 Last Admin: 08/11/19 06:26 Dose: 40 mg Documented by: Vitamin D (Vitamin D3) 5,000 units PO DAILY ABNER Stop: 09/10/19 08:59 Last Admin: 08/11/19 08:55 Dose: 5,000 units Documented by: (1) CHF (congestive heart failure) Heart failure chronicity: acute on chronic Heart failure type: unspecified Qualified Code(s): I50.9 - Heart failure, unspecified
--- NOTE | 2019-08-11 10:09 | Nephrology Consultation ---
Date of Consultation August 11, 2019 Assessment & Plan (1) CKD (chronic kidney disease), stage IV: her recent baseline this spring has been 2.6-2.9 since Mid June. 2.7 on presentation 08/10, stable value today. CKD likely multifactorial from longstanding DM, obesity, ASCVD but progression this spring in setting of worsening cardiac status and so d/t cardiorenal syndrome. improving volume st atus; anemia and chemistries (except hypokalemia as below) satisfactory -no indication for emergent HD -changed lasix to 40 mg IV 0600, noon, 1800 -received 40 mEq po K x 1 for K 3.2 this am; recheck k ordered for 1300 -daily bmp -continue <2 gm daily Na diet and FR 1.5L -daily standing wts pls when clinically able Present on Admission?: Yes History of Present Illness Reason for Consultation: cardiorenal syndrome Requesting Physician: Dr Cole Attending Physician: Benjamin Sheets MD History of Present Illness 59-year-old female was admitted yesterday from cardiology clinic with acute on chronic systolic heart failure w/ cardiorenal syndrome whom I'm asked to see for assistance w/ cardiorenal concerns. PMH includes ischemic C[employer]IED [employer] s/p LAD stent fall 2018 and CABG age 41 and w/ EF 20-24% currently on lifeVest; frequent PVCs/ suspected NSFT, CKD 4, longstanding diabetes mellitus on insulin and w/ retinopathy, class 3 obesity, s/p [place]iane en y gastric [place] [facility] [place] suspected sleep apnea. She had presented to cardiology clinic w/ 16 lb wt gain in 2 wks and worsening LE edema, exertional dyspnea w/ a flight of stairs, and increasing abdominal girth. She was taking Lasix 40 mg po daily but w/ worsenign sx; lasix had been held briefly earlier in the month. Creatinine had been running low 2's in late 2018; in spring 2019, more in the 2.5-2.9 range, most recently 2.8 yesterday. I have been following her closely; some concern at recent CKD clinic visit she is nearing need to start preparations for dialysis. She was admitted to ICU, started on lasix 60 mg IV bid. She has diuresed 2.5L so far. Creatinine stable so far at 2.6. Allergies Allergy/AdvReac Type Severity Reaction Status Date / Time lisinopril Allergy Severe Diarrhea Verified 08/10/19 17:31 escitalopram [From Lexapro] AdvReac Severe NAUSEA/VOMI Verified 08/10/19 17:31 TING Home Medications Home Medications Medication Instructions Recorded Confirmed Type Lantus U-100 Insulin 27 unit SUBCUT QAM 04/29/19 08/10/19 History aspirin [Aspirin Childrens] 81 mg PO DAILY 04/29/19 08/10/19 History atorvastatin 80 mg PO PM 04/29/19 08/10/19 History biotin 1 mg PO DAILY 04/29/19 08/10/19 History clopidogrel [Plavix] 75 mg PO DAILY 04/29/19 08/10/19 History famotidine [Pepcid] 20 mg PO DAILY PRN 04/29/19 08/10/19 History furosemide [Lasix] 40 mg PO DAILY 04/29/19 08/10/19 History hydrocortisone 1 applic TOPICAL TID PRN 04/29/19 08/10/19 History isosorbide dinitrate 10 mg PO TID 04/29/19 08/10/19 History levothyroxine 50 mcg PO DAILYBB 04/29/19 08/10/19 History nitroglycerin [Nitrostat] 0.4 mg SUBLINGUAL DIRECTED PRN 04/29/19 08/10/19 History pantoprazole [Protonix] 40 mg PO DAILYBB 04/29/19 08/10/19 History amiodarone 200 mg PO AMPM 08/10/19 08/10/19 History amlodipine 5 mg PO DAILY 08/10/19 08/10/19 History cholecalciferol (vitamin D3) 125 mcg PO DAILY 08/10/19 08/10/19 History ferrous sulfate [iron] 325 mg PO DAILY 08/10/19 08/10/19 History Patient History Medical History CAD (coronary artery disease) Chronic diastolic (congestive) heart failure CKD (chronic kidney disease), stage IV Dyslipidemia (Acute) Frequent PVCs (Acute) HTN (hypertension) Hypothyroidism Major depressive disorder (Acute) Obesity (Acute) DONALD (obstructive sleep apnea) (Acute) Type 2 diabetes mellitus (Acute) Surgical History History of gastric bypass (Acute ~2008) Diane En Y Hx of CABG (Acute ~2004) "CABG, PCI, and stent to the mid RCA in Mar 2004" Status post coronary artery stent placement (Acute ~12/18/18) [id number] Resolute Fernando stent to LAD distal to ALEMAN-LAD graft touchdown. 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 Other Information That Helps Us Care for You: No Feels Safe at Home: No Is there a partner from a previous relationship who is making you feel unsafe now?: No Any Concerns about Your Family Situation: No Would You Like to Speak to Someone About Your Situation: No Safety Concerns: Feels Safe At This Time Smoking Status: Never smoker Second Hand Exposure: No ; Hx Alcohol Use: No Hx Substance Use: No Review of Systems Review of Systems: All systems reviewed & are unremarkable except as noted in HPI & below Physical Exam Constitutional: well developed and well nourished Sitting up on the side of the bed on room air Eyes: EOM intact bilaterally ENMT: Ears: no external ear abnormality Nose: no external nose abnormality Mouth: + dry oral mucous membranes Neck: no nuchal rigidity Respiratory: normal respiratory effort Auscultation: lungs clear to auscultation bilaterally and + diminished lung sounds Cardiovascular: Rate/Rhythm: regular rate and regular rhythm Extremities: + edema (2-3+ pretibial and pedal edema bilaterally) Gastrointestinal (Abdomen): Inspection/Auscultation: normal bowel sounds Percussion/Palpation: abdomen soft; abdomen nontender Musculoskeletal: Extremities: strength 5/5 throughout Skin: no rashes, warm and dry Neurologic: petersen, fluent speech, no tremor Psychiatric: A+Ox3, euthymic affect Results & Data Vital Signs (Past 12 Hours) Vital Signs Temp Pulse Pulse Resp BP Pulse Ox 08/11/19 07:23 36.7 C 74 20 151/72 H 96 08/11/19 03:21 36.6 C 65 16 139/66 95 08/11/19 00:00 79 08/10/19 23:14 36.6 C 62 14 165/76 H 94 Laboratory Results 08/11/19 04:13 08/11/19 04:13 Diagnostic Findings cxr: mild pulmonary vascular congestion.; concern for R base patchy airspace consolidation
[2019-08-11] MEDS: FUROSEMIDE 40 MG in SYRINGE 0 ML IV SCH ×2 (12:19→19:39)
[2019-08-11] MEDS ORDERED: FUROSEMIDE 40 MG/4 ML VIAL IV ONE (19:38)
[2019-08-11] MEDS: ATORVASTATIN 40 MG TAB PO SCH (20:03)
--- NOTE | 2019-08-11 20:08 | Hospitalist Progress Note ---
Date of Service delayed entry date of service noted below August 11, 2019 Assessment & Plan (1) Acute on chronic combined systolic (congestive) and diastolic (congestive) heart failure: (2) Acute kidney injury superimposed on CKD: (3) CKD (chronic kidney disease), stage IV: (4) Lower extremity edema: per admitting service notes: Patient with acute volume overload with CHF exacerbation and 16 lb weight gain. She has severe lower extremity edema up to her thighs, pleural effusions B/L (s mall), and abdominal fullness. Likely related to volume overload. Discussed patient with Cardiology (Dr. Olvera) who recommended starting patient on IV Lasix 60 mg BID. She was given 1 dose in the ED. She has urinated once since it was given. -- Lasix IV BID Crea 2.3 --> 2.7 diuresing well -- Nephro and Music Intern[employer] consulted (5) Bilateral pleural effusion: (6) Right lower lobe pulmonary infiltrate: Pleural effusions likely due to volume overload. Possible infection vs aspiration pneumonitis on CXR as well. COVID test negative continue Augmentin (7) CAD (coronary artery disease): (8) Frequent PVCs: (9) Cardiomyopathy: (10) HTN (hypertension): echo in June 2019: EF 20-25% monitor (11) Dyslipidemia: Continue statin (12) Type 2 diabetes mellitus: Last A1C 7.3 as outpatient. Insulin protocol (13) Hypothyroidism: Continue levothyroxine. (14) DVT prophylaxis: SQ Heparin Admission and Anticipated Discharge Date Admission Date: August 10, 2019 Subjective ff up for acute CHF exacerbation seen resting in bed, sitting up at the edge, comfortable states she feels slightly improved compared to previous day denies dyspnea, chest pain, palpitations, dizziness no leg pain no other symptoms Review of Systems Review of Systems: All systems reviewed & are unremarkable except as noted in HPI & below Physical Exam Physical Exam: General- oriented x 3, not in distress, speaks in sentences with no effort or accessory muscle use Head- atraumatic Eyes- PERRL, EOMI, anicteric ENT- oropharynx clear Neck- supple, no JVD, no adenopathy, no thyromegaly; carotids +2/2, no bruits appreciated Lungs- mild rales at the bases, no wheezing Heart- normal rate, regular rhythm; no murmur, no gallop, no rub appreciated Abdomen- normal bowel sounds, nondistended, soft, nontender, no masses or hepatosplenomegaly Extremities- (+) grade 2 lower leg edema, no calf tenderness; peripheral pulses intact Neuro- alert, oriented x 3; CN 2-12 grossly intact; motor 5/5 bilaterally;sensation 100% on all extremities; no other gross focal neurologic deficits Skin- warm & dry Results & Data Results & Data ([facility]) Vital Signs (Past 12 Hours) Vital Signs Temp Pulse Resp BP Pulse Ox 08/11/19 19:08 36.6 C 59 L 18 137/57 L 95 08/11/19 15:15 37.0 C 57 L 21 170/74 H 95 Laboratory Results all noted and reviewed
[2019-08-12] MEDS: FUROSEMIDE 40 MG in SYRINGE 0 ML IV SCH ×3 (05:47→18:35)
[2019-08-12] MEDS: LEVOTHYROXINE SODIUM 50 MCG TABLET PO SCH (05:47)
[2019-08-12] MEDS: HEPARIN SOD 5,000 UNIT/0.5 ML VIAL SQ SCH ×3 (05:47→21:28)
[2019-08-12] MEDS: ISOSORBIDE DINITRATE 10 MG TAB PO SCH ×3 (05:48→17:22)
[2019-08-12] MEDS: PANTOprazole 40 MG TAB PO SCH (05:48)
[2019-08-12] MEDS: AMOXICILLIN/CLAVULANATE 500 MG TAB PO SCH ×2 (07:59→17:22)
[2019-08-12] MEDS: ASPIRIN 81 MG CHEW PO SCH (08:01)
[2019-08-12] MEDS: INSULIN ASPART 100 UNITS/ML 3 ML PEN SC SCH ×4 (08:01→21:20)
[2019-08-12] MEDS: CLOPIDOGREL BISULFATE 75 MG TAB PO SCH (08:02)
[2019-08-12] MEDS: FERROUS SULFATE 325 MG TAB PO SCH (08:02)
[2019-08-12] MEDS: AMLODIPINE BESYLATE 5 MG TAB PO SCH (08:02)
[2019-08-12] MEDS: AMIODARONE 200 MG TAB PO SCH (08:02)
[2019-08-12] MEDS: CHOLECALCIFEROL 1,000 UNITS 25 MCG TAB PO SCH (08:03)
[2019-08-12] MEDS: INSULIN GLARGINE SOLOSTAR 100 UNITS/ML 3 ML PEN SC SCH ×2 (08:03→21:23)
[2019-08-12 10:08] LABS: Calcium 8.5 mg/dl (8.5-10.1); Est GFR (African American) 21.1; Est GFR (Non-African American) 18.2
[2019-08-12 10:21] LABS: BUN Creatinine Ratio 11.3 (10-20)
--- NOTE | 2019-08-12 10:53 | Cardiology Progress Note ---
Date of Service August 12, 2019 Assessment & Plan (1) CHF (congestive heart failure): (2) Bilateral edema of lower extremity: (3) [place] (dyspnea on exertion): (4) Bilateral pleural effusion: (5) Acute on chronic combined systolic (congestive) and diastolic (congestive) heart failure: (6) Cardiomyopathy: (7) CAD (coronary artery disease): (8) Type 2 diabetes mellitus: (9) Obesity: (10) DONALD (obstructive sleep apnea): The patient was hypoxic through the night on the oximeter. I think she should be treated for sleep apnea when she is discharged but for now she needs to be on oxygen at night. She still has edema of the lower extremities and is carrying a lot of fluid weight. Even though her creatinine has increased a little bit she needs continued IV diuretics. At some point when she has cleared her volume overload, she will need to see electrophysiology for an ICD. Subjective The patient has no new cardiac complaints. Review of Systems Review of Systems: All systems reviewed & are unremarkable except as noted in HPI & below Nothing additional to add Physical Exam Physical Exam: General: no acute distress and stated age Head: normocephalic, no masses, lesions, tenderness or abnormalities Eyes: conjunctiva are pink and non-injected, sclera clear Neck: supple, no adenopathy, no bruits, normal jugular venous pulse, no hepatojugular reflux Chest: normal shape and normal respiratory effort Lungs: clear to auscultation and percussion Cardiac Exam: - regular rate & rhythm, no murmurs gallops or rubs - normal S1, normal S2 Pulses: 2(+) throughout Abdomen: abdomen soft, non-tender, no abnormal masses and no hepatosplenomegaly Musculoskeletal: no gait disturbance, no joint inflammation, no deforming arthritis Extremities: Bilateral lower extremity edema to the midcalf's Neuro: grossly normal exam Results & Data Vital Signs (Past 12 Hours) Vital Signs Temp Pulse Pulse Pulse Resp BP Pulse Ox 08/12/19 08:08 36.6 C 55 L 18 158/59 H 96 08/12/19 08:00 54 L 08/12/19 03:45 36.4 C L 74 18 126/58 L 92 08/12/19 03:18 59 L 08/12/19 00:00 60 08/11/19 23:18 36.7 C 52 L 19 137/67 95 Pulse Ox 08/12/19 08:08 08/12/19 08:00 08/12/19 03:45 08/12/19 03:18 90 08/12/19 00:00 08/11/19 23:18 Laboratory Results Laboratory Results - last 24 hr 08/11/19 08/11/19 08/11/19 11:19 13:02 16:22 Sodium Potassium 4.4 D Chloride Carbon Dioxide Anion Gap BUN Creatinine Est Cr Clr Drug Dosing Est GFR ( Amer) Est GFR (Non-Af Amer) BUN/Creatinine Ratio Glucose POC Glucose 103 H 105 H Calcium 08/11/19 08/12/19 08/12/19 20:02 07:38 09:21 Sodium 141 Potassium 4.0 Chloride 107 Carbon Dioxide 29 Anion Gap 5.0 BUN 31 H Creatinine 2.77 H Est Cr Clr Drug Dosing 30.0 Est GFR ( Amer) 21.1 Est GFR (Non-Af Amer) 18.2 BUN/Creatinine Ratio 11.3 Glucose 107 H POC Glucose 133 H 78 Calcium 8.5 Medications Administered Current Inpatient Medications Acetaminophen (Tylenol) 650 mg PO Q4H PRN PRN Reason: Pain or Fever Stop: 09/09/19 20:01 Amiodarone HCl (Cordarone) 200 mg PO DAILY [facility] Stop: 09/12/19 08:59 Amlodipine Besylate (Norvasc) 5 mg PO DAILY [facility] Stop: 09/10/19 08:59 Last Admin: 08/12/19 08:02 Dose: 5 mg Documented by: Amoxicillin/Clavulanate Potassium (Augmentin 500mg) 1 tab PO BIDM [facility] Stop: 08/17/19 20:59 Last Admin: 08/12/19 07:59 Dose: 1 tab Documented by: Aspirin (Aspirin Chew) 81 mg PO DAILY [facility] Stop: 09/10/19 08:59 Last Admin: 08/12/19 08:01 Dose: 81 mg Documented by: Atorvastatin Calcium (Lipitor) 80 mg PO PM [facility] Stop: 09/09/19 20:59 Last Admin: 08/11/19 20:03 Dose: 80 mg Documented by: Clopidogrel Bisulfate (Plavix) 75 mg PO DAILY [facility] Stop: 09/10/19 08:59 Last Admin: 08/12/19 08:02 Dose: 75 mg Documented by: Dextrose (Dextrose 50%) 25 - 50 ml IV UD PRN; Protocol PRN Reason: Hypoglycemia Protocol Stop: 09/09/19 20:01 Famotidine (Pepcid) 20 mg PO DAILY PRN PRN Reason: Gi Upset Stop: 09/09/19 20:04 Ferrous Sulfate (Feosol) 325 mg PO DAILY [facility] Stop: 09/10/19 08:59 Last Admin: 08/12/19 08:02 Dose: 325 mg Documented by: Glucagon (Glucagen) 1 mg SQ UD PRN; Protocol PRN Reason: Hypoglycemia Protocol Stop: 09/09/19 20:01 Glucose (Dex4 Glucose) 4 - 8 tabs PO UD PRN; Protocol PRN Reason: Hypoglycemia Protocol Stop: 09/09/19 20:01 Glucose (Glucose 40%) 15 - 30 gm PO UD PRN; Protocol PRN Reason: Hypoglycemia Protocol Stop: 09/09/19 20:01 Heparin Sodium (Porcine) (Heparin Sodium (Porcine)) 5,000 units SQ Q8 [facility] Stop: 09/09/19 21:59 Last Admin: 08/12/19 05:47 Dose: 5,000 units Documented by: Furosemide 40 mg/ Syringe 4 mls @ 4 mls/min IV TID@0600,1200,1800 [facility] Stop: 09/10/19 11:59 Last Admin: 08/12/19 05:47 Dose: 4 mls/min Documented by: Insulin Aspart (Novolog Flexpen) 0 units SC ACHS [facility] Stop: 09/09/19 20:59 Last Admin: 08/12/19 08:01 Dose: Not Given Documented by: Insulin Glargine (Lantus Solostar Pen) 27 units SC BID [facility] Stop: 09/09/19 20:59 Last Admin: 08/12/19 08:03 Dose: Not Given Documented by: Isosorbide Dinitrate (Isordil) 10 mg PO TID@0700,1200,1700 [facility] Stop: 09/09/19 20:59 Last Admin: 08/12/19 05:48 Dose: 10 mg Documented by: Levothyroxine Sodium (Synthroid) 50 mcg PO DAILYBB [facility] Stop: 09/10/19 06:29 Last Admin: 08/12/19 05:47 Dose: 50 mcg Documented by: Miscellaneous (Carbohydrates For Hypoglycemia) 15 - 30 gm PO UD PRN PRN Reason: Hypoglycemia Protocol Stop: 09/09/19 20:01 Pantoprazole Sodium (Protonix) 40 mg PO DAILYBB [facility] Stop: 09/10/19 06:29 Last Admin: 08/12/19 05:48 Dose: 40 mg Documented by: Vitamin D (Vitamin D3) 5,000 units PO DAILY [facility] Stop: 09/10/19 08:59 Last Admin: 08/12/19 08:03 Dose: 5,000 units Documented by: (1) CHF (congestive heart failure) Heart failure chronicity: acute on chronic Heart failure type: unspecified Qualified Code(s): I50.9 - Heart failure, unspecified
--- NOTE | 2019-08-12 11:32 | Nephrology Progress Note ---
Date of Service August 12, 2019 Assessment & Plan (1) CKD (chronic kidney disease), stage IV: her recent baseline this spring has been 2.6-2.9 since Mid June. 2.7 on presentation 08/10, stable value today. CKD likely multifactorial from longstanding DM, obesity, ASCVD but progression this spring in setting of worsening cardiac status and so d/t cardiorenal syndrome. improving volume status; anemia and chemistries (except hypokalemia as below) satisfactory. first standing wt this hospital stay on 08/11 for 129.8 kg; 5L negative per I/O as of today (though this is likely an exaggeration; she is at least 3L negative for sure -trend standing wts -no indication for emergent HD -cont lasix 40 mg IV 0600, noon, 1800 -started standing po K 20 mEq daily -daily bmp -continue <2 gm daily Na diet and FR 1.5L Admission and Anticipated Discharge Date Admission Date: August 10, 2019 Subjective feeling better; edema improved/less tight but still present; learning about FR Review of Systems Review of Systems: All systems reviewed & are unremarkable except as noted in HPI & below Physical Exam Constitutional: well developed and well nourished sitting up on RA Eyes: EOM intact bilaterally ENMT: Ears: no external ear abnormality Nose: no external nose abnormality Mouth: + dry oral mucous membranes Neck: no nuchal rigidity Respiratory: normal respiratory effort Auscultation: lungs clear to au scultation bilaterally and + diminished lung sounds Cardiovascular: Rate/Rhythm: regular rate and regular rhythm Extremities: + edema (2-3+ pretibial and pedal edema bilaterally) Gastrointestinal (Abdomen): Inspection/Auscultation: normal bowel sounds Percussion/Palpation: abdomen soft; abdomen nontender Musculoskeletal: Extremities: strength 5/5 throughout Skin: no rashes, warm and dry Neurologic: petersen, fluent speech, no tremor Psychiatric: A+Ox3, euthymic affect Results & Data ([facility]) Vital Signs (Past 12 Hours) Vital Signs Temp Pulse Pulse Pulse Resp BP Pulse Ox 08/12/19 08:08 36.6 C 55 L 18 158/59 H 96 08/12/19 08:00 54 L 08/12/19 03:45 36.4 C L 74 18 126/58 L 92 08/12/19 03:18 59 L 08/12/19 00:00 60 Pulse Ox 08/12/19 08:08 08/12/19 08:00 08/12/19 03:45 08/12/19 03:18 90 08/12/19 00:00 Laboratory Results 08/11/19 04:13 08/12/19 09:21
[2019-08-12] MEDS: POTASSIUM CHLORIDE 20 MEQ TABCR PO SCH (13:11)
--- NOTE | 2019-08-12 18:01 | Hospitalist Progress Note ---
Date of Service August 12, 2019 Assessment & Plan (1) Acute on chronic combined systolic (congestive) and diastolic (congestive) heart failure: (2) Acute kidney injury superimposed on CKD: (3) CKD (chronic kidney disease), stage IV: (4) Lower extremity edema: per admitting service notes: Patient with acute volume overload with CHF exacerbation and 16 lb weight gain. She has severe lower extremity edema up to her thighs, pleural effusions B/L (small), and abdominal fullness. Likely related to volume overload. Discussed patient with Cardiology (Dr. Olvera) who recommended starting patient on IV Lasix 60 mg BID. She was given 1 dose in the ED. She has urinated once since it was given. -- Lasix IV BID Crea 2.3 --> 2.77 diuresing well continue Lasix -- Nephro and Catering Truck Operator consulted (5) Bilateral pleural effusion: (6) Right lower lobe pulmonary infiltrate: Pleural effusions likely due to volume overload. Possible infection vs aspiration pneumonitis on CXR as well. COVID test negative continue Augmentin (7) CAD (coronary artery disease): (8) Frequent PVCs: (9) Cardiomyopathy: (10) HTN (hypertension): echo in June 2019: EF 20-25% on [facility] EP to be consulted per Cardio monitor (11) Dyslipidemia: Continue statin (12) Type 2 diabetes mellitus: Last A1C 7.3 as outpatient. Insulin protocol (13) Hypothyroidism: Continue levothyroxine. (14) DVT prophylaxis: SQ Heparin Admission and Anticipated Discharge Date Admission Date: August 10, 2019 Subjective ff up for CHF exacerbation seen resting in chair, comfortable states she continues to feel improved legs feel less tight denies chest pain, dyspnea, palpitations, dizziness no other symptoms Review of Systems Review of Systems: All systems reviewed & are unremarkable except as noted in HPI & below Physical Exam Physical Exam: General- oriented x 3, not in distress, speaks in sentences with no effort or accessory muscle use Eyes- anicteric Neck- no JVD Lungs- clear breath sounds bilaterally Heart- normal rate, regular rhythm; no murmurs Abdomen- normal bowel sounds, nondistended, soft, nontender Extremities- grade 2-3 lower leg edema, no calf tenderness Neuro- alert, oriented x 3; no gross focal neurologic deficits Skin- warm & dry Results & Data Results & Data ([place]) Vital Signs (Past 12 Hours) Vital Signs Temp Pulse Pulse Resp BP Pulse Ox 08/12/19 16:00 53 L 08/12/19 15:19 36.8 C 50 L 18 146/55 H 96 08/12/19 12:11 36.7 C 53 L 18 177/83 H 95 08/12/19 08:08 36.6 C 55 L 18 158/59 H 96 08/12/19 08:00 54 L
[2019-08-12] MEDS: ATORVASTATIN 40 MG TAB PO SCH (19:37)
[2019-08-13] MEDS: HEPARIN SOD 5,000 UNIT/0.5 ML VIAL SQ SCH ×3 (06:00→21:34)
[2019-08-13] MEDS: PANTOprazole 40 MG TAB PO SCH (06:01)
[2019-08-13] MEDS: ISOSORBIDE DINITRATE 10 MG TAB PO SCH ×3 (06:01→17:09)
[2019-08-13] MEDS: LEVOTHYROXINE SODIUM 50 MCG TABLET PO SCH (06:01)
[2019-08-13] MEDS: FUROSEMIDE 40 MG in SYRINGE 0 ML IV SCH ×3 (06:01→18:39)
[2019-08-13 06:24] LABS: BUN Creatinine Ratio 13.2 (10-20); Calcium 8.4 mg/dl (8.5-10.1); Creatinine Clr Calc Pharmacy 29.4 ml/min; Est GFR (African American) 20.9; Potassium 3.8 mmol/L (3.5-5.1)
[2019-08-13] MEDS: INSULIN ASPART 100 UNITS/ML 3 ML PEN SC SCH ×4 (07:52→21:32)
[2019-08-13] MEDS: AMOXICILLIN/CLAVULANATE 500 MG TAB PO SCH ×2 (07:53→17:08)
[2019-08-13] MEDS: POTASSIUM CHLORIDE 20 MEQ TABCR PO SCH (07:53)
[2019-08-13] MEDS: CLOPIDOGREL BISULFATE 75 MG TAB PO SCH (07:54)
[2019-08-13] MEDS: FERROUS SULFATE 325 MG TAB PO SCH (07:54)
[2019-08-13] MEDS: AMIODARONE 200 MG TAB PO SCH (07:54)
[2019-08-13] MEDS: AMLODIPINE BESYLATE 5 MG TAB PO SCH (07:54)
[2019-08-13] MEDS: CHOLECALCIFEROL 1,000 UNITS 25 MCG TAB PO SCH (07:54)
[2019-08-13] MEDS: INSULIN GLARGINE SOLOSTAR 100 UNITS/ML 3 ML PEN SC SCH (07:55)
[2019-08-13] MEDS: ASPIRIN 81 MG CHEW PO SCH (07:56)
[2019-08-13] MEDS: ACETAMINOPHEN 325 MG TAB PO PRN (09:52)
--- NOTE | 2019-08-13 12:37 | Cardiology Progress Note ---
Date of Service August 13, 2019 Assessment & Plan (1) CHF (congestive heart failure): (2) Bilateral edema of lower extremity: (3) [place] (dyspnea on exertion): (4) Bilateral pleural effusion: (5) Acute on chronic combined systolic (congestive) and diastolic (congestive) heart failure: (6) Cardiomyopathy: (7) CAD (coronary artery disease): (8) Type 2 diabetes mellitus: (9) Obesity: (10) DONALD (obstructive sleep apnea): The patient is diuresing but still has a lot of fluid on board. I would continue the IV diuretics. At some point she will need an ICD and I will ask electrophysiology to see her. She will also need a sleep evaluation. Subjective Patient is sitting comfortably in a chair Review of Systems Review of Systems: All systems reviewed & are unremarkable except as noted in HPI & below Nothing additional to add. Physical Exam Physical Exam: General: no acute distress and stated age Head: normocephalic, no masses, lesions, tenderness or abnormalities Eyes: conjunctiva are pink and non-injected, sclera clear Neck: supple, no adenopathy, no bruits, normal jugular venous pulse, no hepatojugular reflux Chest: normal shape and normal respiratory effort Lungs: clear to auscultation and percussion Cardiac Exam: - regular rate & rhythm, no murmurs gallops or rubs - normal S1, normal S2 Pulses: 2(+) throughout Abdomen: abdomen soft, non-tender, no abnormal masses and no hepatosplenomegaly Musculoskeletal: no gait disturbance, no joint inflammation, no deforming arthritis Extremities: Bilateral hard edema of the calfs. Neuro: grossly normal exam Results & Data Vital Signs (Past 12 Hours) Vital Signs Temp Pulse Resp BP Pulse Ox 08/13/19 12:21 36.9 C 85 19 112/64 96 08/13/19 07:08 36.6 C 56 L 19 93/57 L 96 08/13/19 03:37 36.6 C 50 L 19 129/73 96 Laboratory Results Laboratory Results - last 24 hr 08/12/19 08/12/19 08/13/19 16:23 20:19 05:43 Sodium 142 Potassium 3.8 Chloride 106 Carbon Dioxide 30 Anion Gap 6.0 BUN 37 H Creatinine 2.80 H Est Cr Clr Drug Dosing 29.4 Est GFR ( Amer) 20.9 Est GFR (Non-Af Amer) 18.0 BUN/Creatinine Ratio 13.2 Glucose 104 H POC Glucose 96 145 H Calcium 8.4 L 08/13/19 08/13/19 07:36 11:18 Sodium Potassium Chloride Carbon Dioxide Anion Gap BUN Creatinine Est Cr Clr Drug Dosing Est GFR ( Amer) Est GFR (Non-Af Amer) BUN/Creatinine Ratio Glucose POC Glucose 99 75 Calcium Medications Administered Current Inpatient Medications Acetaminophen (Tylenol) 650 mg PO Q4H PRN PRN Reason: Pain or Fever Stop: 09/09/19 20:01 Last Admin: 08/13/19 09:52 Dose: 650 mg Documented by: Amiodarone HCl (Cordarone) 200 mg PO DAILY [facility] Stop: 09/12/19 08:59 Last Admin: 08/13/19 07:54 Dose: 200 mg Documented by: Amlodipine Besylate (Norvasc) 5 mg PO DAILY [facility] Stop: 09/10/19 08:59 Last Admin: 08/13/19 07:54 Dose: 5 mg Documented by: Amoxicillin/Clavulanate Potassium (Augmentin 500mg) 1 tab PO BIDM [facility] Stop: 08/17/19 20:59 Last Admin: 08/13/19 07:53 Dose: 1 tab Documented by: Aspirin (Aspirin Chew) 81 mg PO DAILY [facility] Stop: 09/10/19 08:59 Last Admin: 08/13/19 07:56 Dose: 81 mg Documented by: Atorvastatin Calcium (Lipitor) 80 mg PO PM [facility] Stop: 09/09/19 20:59 Last Admin: 08/12/19 19:37 Dose: 80 mg Documented by: Clopidogrel Bisulfate (Plavix) 75 mg PO DAILY [facility] Stop: 09/10/19 08:59 Last Admin: 08/13/19 07:54 Dose: 75 mg Documented by: Dextrose (Dextrose 50%) 25 - 50 ml IV UD PRN; Protocol PRN Reason: Hypoglycemia Protocol Stop: 09/09/19 20:01 Famotidine (Pepcid) 20 mg PO DAILY PRN PRN Reason: Gi Upset Stop: 09/09/19 20:04 Ferrous Sulfate (Feosol) 325 mg PO DAILY [facility] Stop: 09/10/19 08:59 Last Admin: 08/13/19 07:54 Dose: 325 mg Documented by: Glucagon (Glucagen) 1 mg SQ UD PRN; Protocol PRN Reason: Hypoglycemia Protocol Stop: 09/09/19 20:01 Glucose (Dex4 Glucose) 4 - 8 tabs PO UD PRN; Protocol PRN Reason: Hypoglycemia Protocol Stop: 09/09/19 20:01 Glucose (Glucose 40%) 15 - 30 gm PO UD PRN; Protocol PRN Reason: Hypoglycemia Protocol Stop: 09/09/19 20:01 Heparin Sodium (Porcine) (Heparin Sodium (Porcine)) 5,000 units SQ Q8 [facility] Stop: 09/09/19 21:59 Last Admin: 08/13/19 06:00 Dose: 5,000 units Documented by: Furosemide 40 mg/ Syringe 4 mls @ 4 mls/min IV TID@0600,1200,1800 [facility] Stop: 09/10/19 11:59 Last Admin: 08/13/19 11:59 Dose: 4 mls/min Documented by: Insulin Aspart (Novolog Flexpen) 0 units SC ACHS [facility] Stop: 09/09/19 20:59 Last Admin: 08/13/19 12:07 Dose: Not Given Documented by: Insulin Glargine (Lantus Solostar Pen) 20 units SC QAM [facility] Stop: 09/12/19 20:59 Isosorbide Dinitrate (Isordil) 10 mg PO TID@0700,1200,1700 [facility] Stop: 09/09/19 20:59 Last Admin: 08/13/19 07:54 Dose: 10 mg Documented by: Levothyroxine Sodium (Synthroid) 50 mcg PO DAILYBB [facility] Stop: 09/10/19 06:29 Last Admin: 08/13/19 06:01 Dose: 50 mcg Documented by: Miscellaneous (Carbohydrates For Hypoglycemia) 15 - 30 gm PO UD PRN PRN Reason: Hypoglycemia Protocol Stop: 09/09/19 20:01 Pantoprazole Sodium (Protonix) 40 mg PO DAILYBB [facility] Stop: 09/10/19 06:29 Last Admin: 08/13/19 06:01 Dose: 40 mg Documented by: Potassium Chloride (Klor-Con M20) 20 meq PO QAM [facility] Stop: 09/11/19 11:44 Last Admin: 08/13/19 07:53 Dose: 20 meq Documented by: Vitamin D (Vitamin D3) 5,000 units PO DAILY [facility] Stop: 09/10/19 08:59 Last Admin: 08/13/19 07:54 Dose: 5,000 units Documented by: (1) CHF (congestive heart failure) Heart failure chronicity: acute on chronic Heart failure type: unspecified Qualified Code(s): I50.9 - Heart failure, unspecified
--- NOTE | 2019-08-13 13:23 | Progress Notes ---
DATE: 08/13/2019 SUBJECTIVE: Overnight, the patient continues to diurese. She does not have shortness of breath, but she still has massive edema bilaterally. Denies nausea, vomiting or any other symptoms. PHYSICAL EXAMINATION: VITAL SIGNS: Blood pressure 112/64, pulse rate 85, temperature 36.9 degrees Celsius, 96% on room air. HEENT: Mucous membrane is moist. NECK: Supple. CHEST: Bilateral clear to auscultation. CARDIOVASCULAR SYSTEM: S1 and S2, regular. ABDOMEN: Soft, nontender, obese. EXTREMITIES: Shows bilateral 3+ edema, very hard. LABORATORY TESTS: From this morning reviewed in detail. Renal labs overall remains stable. BUN 37, creatinine 2.8. Hemoglobin 10, platelet count 206. ASSESSMENT AND PLAN: A 59-year-old female with chronic kidney disease stage IV at baseline, around 2.6-2.9 and at this time, she is still at baseline renal function. Congestive heart failure: She has low ejection fraction as well as diabetic/low perfusion related chronic kidney disease and given dual system involvement, she definitely has a bit problem with fluid retention. At this time, she is getting Lasix 40 mg 3 times a day and is responding pretty good and I would continue the same for the time being as she still has massive amount of edema. She was on Lasix 40 mg daily as an outpatient, which I believe is not adequate given her chronic kidney disease IV and low ejection fraction. I would substantially increase the dose of Lasix or switch over to Demadex. My preference should be Demadex 100 daily if agreeable to Cardiology. I would rather see her creatinine higher than being this degree of fluid overload.
[2019-08-13] MEDS ORDERED: INSULIN GLARGINE SOLOSTAR 100 UNITS/ML 3 ML PEN SC SCH (21:00)
[2019-08-13] MEDS: ATORVASTATIN 40 MG TAB PO SCH (21:34)
[2019-08-14] MEDS: HEPARIN SOD 5,000 UNIT/0.5 ML VIAL SQ SCH ×3 (05:17→21:16)
[2019-08-14] MEDS: LEVOTHYROXINE SODIUM 50 MCG TABLET PO SCH (05:17)
[2019-08-14] MEDS: PANTOprazole 40 MG TAB PO SCH (05:17)
[2019-08-14] MEDS: FUROSEMIDE 40 MG in SYRINGE 0 ML IV SCH (05:17)
[2019-08-14] MEDS: ISOSORBIDE DINITRATE 10 MG TAB PO SCH ×3 (06:23→17:26)
[2019-08-14 06:47] LABS: BUN Creatinine Ratio 12.7 (10-20); Calcium 8.5 mg/dl (8.5-10.1); Creatinine Clr Calc Pharmacy 27.4 ml/min; Est GFR (African American) 19.3; Est GFR (Non-African American) 16.6; Potassium 4.2 mmol/L (3.5-5.1)
--- NOTE | 2019-08-14 07:33 | Hospitalist Progress Note ---
Date of Service delayed entry date of service 08/13/19 August 14, 2019 Assessment & Plan (1) Acute on chronic combined systolic (congestive) and diastolic (congestive) heart failure: (2) Acute kidney injury superimposed on CKD: (3) CKD (chronic kidney disease), stage IV: (4) Lower extremity edema: per admitting service notes: Patient with acute volume overload with CHF exacerbation and 16 lb weight gain. She has severe lower extremity edema up to her thighs, pleural effusions B/L (small), and abdominal fullness. Likely related to volume overload. Discussed patient with Cardiology (Dr. Olvera) who recommended starting patient on IV Lasix 60 mg BID. She was given 1 dose in the ED. She has urinated once since it was given. -- Lasix IV BID Crea 2.3 --> 2.8 diuresing well continue Lasix -- Nephro and Insurance Claim Representative consulted (5) Bilateral pleural effusion: (6) Right lower lobe pulmonary infiltrate: Pleural effusions likely due to volume overload. Possible infection vs aspiration pneumonitis on CXR as well. COVID test negative continue Augmentin (7) CAD (coronary artery disease): (8) Frequent PVCs: (9) Cardiomyopathy: (10) HTN (hypertension): echo in June 2019: EF 20-25% on [facility] EP consulted per Cardio monitor (11) Dyslipidemia: Continue statin (12) Type 2 diabetes mellitus: Last A1C 7.3 as outpatient. Insulin protocol (13) Hypothyroidism: Continue levothyroxine. (14) DVT prophylaxis: SQ Heparin Admission and Anticipated Discharge Date Admission Date: August 10, 2019 Subjective ff up for volume overload, cardiomyopathy seen resting in bedside chair comfortable states she feels improved daily no dyspnea, chest pain, dizziness no nausea, abdominal pain no leg pain no other symptoms Review of Systems Review of Systems: All systems reviewed & are unremarkable except as noted in HPI & below Physical Exam Physical Exam: General- oriented x 3, not in distress, speaks in sentences with no effort or accessory muscle use Eyes- anicteric Neck- no JVD Lungs- faint rales at the bases, no wheezing Heart- normal rate, regular rhythm; no murmurs Abdomen- normal bowel sounds, nondistended, soft, nontender Extremities- grade 2 lower ext edema, no calf tenderness Neuro- alert, oriented x 3; no gross focal neurologic deficits Skin- warm & dry Results & Data Results & Data ([facility]) Vital Signs (Past 12 Hours) Vital Signs Temp Pulse Resp BP Pulse Ox 08/14/19 05:37 36.7 C 80 16 147/68 H 98 08/13/19 23:52 36.8 C 58 L 18 154/76 H 94 Laboratory Results all noted and reviewed
[2019-08-14] MEDS: INSULIN ASPART 100 UNITS/ML 3 ML PEN SC SCH ×4 (08:08→20:13)
[2019-08-14] MEDS: AMLODIPINE BESYLATE 5 MG TAB PO SCH (08:09)
[2019-08-14] MEDS: CHOLECALCIFEROL 1,000 UNITS 25 MCG TAB PO SCH (08:09)
[2019-08-14] MEDS: AMIODARONE 200 MG TAB PO SCH (08:09)
[2019-08-14] MEDS: POTASSIUM CHLORIDE 20 MEQ TABCR PO SCH (08:09)
[2019-08-14] MEDS: INSULIN GLARGINE SOLOSTAR 100 UNITS/ML 3 ML PEN SC SCH (08:09)
[2019-08-14] MEDS: CLOPIDOGREL BISULFATE 75 MG TAB PO SCH (08:10)
[2019-08-14] MEDS: FERROUS SULFATE 325 MG TAB PO SCH (08:10)
[2019-08-14] MEDS: AMOXICILLIN/CLAVULANATE 500 MG TAB PO SCH ×2 (08:10→17:25)
[2019-08-14] MEDS: ASPIRIN 81 MG CHEW PO SCH (08:11)
--- NOTE | 2019-08-14 10:41 | Cardiology Progress Note ---
Date of Service August 14, 2019 Assessment & Plan (1) CHF (congestive heart failure): Patient with ongoing duresis with a 2.8 L output over the last 24 hours. She is down 8 kg since admission. Continue IV diuretics. Close monitoring of renal function recommended. Creatinine trending slightly higher at 2.9. Appreciate nephrology recommendations. Patient evaluated by EP this morning and likely to proceed with ICD tomorrow. Outpatient sleep med evaluation to be also arranged. Case discussed with Dr. Ocampo. Will follow. (2) Bilateral edema of lower extremity: (3) LIV[place] (dyspnea on exertion): (4) Bilateral pleural effusion: (5) Acute on chronic combined systolic (congestive) and diastolic (congestive) heart failure: (6) Cardiomyopathy: (7) CAD (coronary artery disease): (8) Type 2 diabetes mellitus: (9) Obesity: (10) DONALD (obstructive sleep apnea): Supervising Physician Co-Signing Physician Notes I have seen and evaluated the patient. Reviewed the medical record and discussed the case with Shelli Garcia. She was seen by electrophysiology today and the plan is for ICD placement tomorrow. I think she is almost euvolemic and her creatinine is 2.99 today. I will decrease her diuretics by the seeing the IV Lasix and switching her over to oral or 40 mg Lasix twice a day. Subjective Patient resting comfortably out of bed in chair. She reports ongoing improvement in her lower extremity edema. No complaints of chest pain at rest or shortness of breath. No fever cough or chills. Ongoing diuresis and frequent urinary output noted by patient. She is down approximately 8 kg since admission. Review of Systems Review of Systems: All systems reviewed & are unremarkable except as noted in HPI & below Physical Exam Constitutional: WD/WN, vitals as above + obese; no acute distress and not ill appearing Neck: normal visual inspection Respiratory: normal respiratory effort, lungs clear to auscultation Auscultation: no crackles, no rhonchi and no wheezes Cardiovascular: Rate/Rhythm: regular rate and regular rhythm Heart Sounds: no murmur (No audible murmurs. distant heart sounds) Extremities: + edema (2+ edema b/l) Gastrointestinal (Abdomen): normal bowel sounds, soft, nontender, no hepatosplenomegaly Musculoskeletal: no cyanosis or clubbing, extremities motor strength 5/5 Neurologic: PERRL, EOMI, accommodation nl, no face palsy, no dysarthria Psychiatric: A+Ox3, euthymic affect Results & Data Vital Signs (Past 12 Hours) Vital Signs Temp Pulse Resp BP Pulse Ox 08/14/19 07:43 36.6 C 53 L 19 150/80 H 96 08/14/19 05:37 36.7 C 80 16 147/68 H 98 08/13/19 23:52 36.8 C 58 L 18 154/76 H 94 Laboratory Results 08/14/19 08/14/19 08/13/19 Range/Units 07:34 05:37 20:54 Sodium 143 (136-145) mmol/L Potassium 4.2 (3.5-5.1) mmol/L Chloride 105 (98-107) mmol/L Carbon Dioxide 31 (21-32) mmol/L Anion Gap 7.0 (3-11) BUN 38 H (7-18) mg/dl Creatinine 2.99 H (0.6-1.2) mg/dl Est Cr Clr Drug Dosing 27.4 ml/min Est GFR ( Amer) 19.3 Est GFR (Non-Af Amer) 16.6 BUN/Creatinine Ratio 12.7 (10-20) Glucose 95 (70-99) mg/dl POC Glucose 107 H 121 H (70-99) mg/dl Calcium 8.5 (8.5-10.1) mg/dl 08/13/19 08/13/19 Range/Units 16:04 11:18 Sodium (136-145) mmol/L Potassium (3.5-5.1) mmol/L Chloride (98-107) mmol/L Carbon Dioxide (21-32) mmol/L Anion Gap (3-11) BUN (7-18) mg/dl Creatinine (0.6-1.2) mg/dl Est Cr Clr Drug Dosing ml/min Est GFR ( Amer) Est GFR (Non-Af Amer) BUN/Creatinine Ratio (10-20) Glucose (70-99) mg/dl POC Glucose 131 H 75 (70-99) mg/dl Calcium (8.5-10.1) mg/dl Diagnostic Findings Telemetry reviewed: Normal sinus rhythm ranging 50 to 60 bpm and occasional PVCs. No sustained arrhyhtmias Medications Administered Current Inpatient Medications Acetaminophen (Tylenol) 650 mg PO Q4H PRN PRN Reason: Pain or Fever Stop: 09/09/19 20:01 Last Admin: 08/13/19 09:52 Dose: 650 mg Documented by: Amiodarone HCl (Cordarone) 200 mg PO DAILY [facility] Stop: 09/12/19 08:59 Last Admin: 08/14/19 08:09 Dose: 200 mg Documented by: Amlodipine Besylate (Norvasc) 5 mg PO DAILY [facility] Stop: 09/10/19 08:59 Last Admin: 08/14/19 08:09 Dose: 5 mg Documented by: Amoxicillin/Clavulanate Potassium (Augmentin 500mg) 1 tab PO BIDM [facility] Stop: 08/17/19 20:59 Last Admin: 08/14/19 08:10 Dose: 1 tab Documented by: Aspirin (Aspirin Chew) 81 mg PO DAILY [facility] Stop: 09/10/19 08:59 Last Admin: 08/14/19 08:11 Dose: 81 mg Documented by: Atorvastatin Calcium (Lipitor) 80 mg PO PM [facility] Stop: 09/09/19 20:59 Last Admin: 08/13/19 21:34 Dose: 80 mg Documented by: Clopidogrel Bisulfate (Plavix) 75 mg PO DAILY [facility] Stop: 09/10/19 08:59 Last Admin: 08/14/19 08:10 Dose: 75 mg Documented by: Dextrose (Dextrose 50%) 25 - 50 ml IV UD PRN; Protocol PRN Reason: Hypoglycemia Protocol Stop: 09/09/19 20:01 Famotidine (Pepcid) 20 mg PO DAILY PRN PRN Reason: Gi Upset Stop: 09/09/19 20:04 Ferrous Sulfate (Feosol) 325 mg PO DAILY [facility] Stop: 09/10/19 08:59 Last Admin: 08/14/19 08:10 Dose: 325 mg Documented by: Glucagon (Glucagen) 1 mg SQ UD PRN; Protocol PRN Reason: Hypoglycemia Protocol Stop: 09/09/19 20:01 Glucose (Dex4 Glucose) 4 - 8 tabs PO UD PRN; Protocol PRN Reason: Hypoglycemia Protocol Stop: 09/09/19 20:01 Glucose (Glucose 40%) 15 - 30 gm PO UD PRN; Protocol PRN Reason: Hypoglycemia Protocol Stop: 09/09/19 20:01 Heparin Sodium (Porcine) (Heparin Sodium (Porcine)) 5,000 units SQ Q8 [facility] Stop: 09/09/19 21:59 Last Admin: 08/14/19 05:17 Dose: 5,000 units Documented by: Furosemide 40 mg/ Syringe 4 mls @ 4 mls/min IV TID@0600,1200,1800 [facility] Stop: 09/10/19 11:59 Last Admin: 08/14/19 05:17 Dose: 4 mls/min Documented by: Insulin Aspart (Novolog Flexpen) 0 units SC ACHS [facility] Stop: 09/09/19 20:59 Last Admin: 08/14/19 08:08 Dose: 3 units Documented by: Insulin Glargine (Lantus Solostar Pen) 20 units SC QAM [facility] Stop: 09/12/19 20:59 Last Admin: 08/14/19 08:09 Dose: 20 units Documented by: Isosorbide Dinitrate (Isordil) 10 mg PO TID@0700,1200,1700 [facility] Stop: 09/09/19 20:59 Last Admin: 08/14/19 06:23 Dose: 10 mg Documented by: Levothyroxine Sodium (Synthroid) 50 mcg PO DAILYBB [facility] Stop: 09/10/19 06:29 Last Admin: 08/14/19 05:17 Dose: 50 mcg Documented by: Miscellaneous (Carbohydrates For Hypoglycemia) 15 - 30 gm PO UD PRN PRN Reason: Hypoglycemia Protocol Stop: 09/09/19 20:01 Pantoprazole Sodium (Protonix) 40 mg PO DAILYBB [facility] Stop: 09/10/19 06:29 Last Admin: 08/14/19 05:17 Dose: 40 mg Documented by: Potassium Chloride (Klor-Con M20) 20 meq PO QAM [facility] Stop: 09/11/19 11:44 Last Admin: 08/14/19 08:09 Dose: 20 meq Documented by: Vitamin D (Vitamin D3) 5,000 units PO DAILY [facility] Stop: 09/10/19 08:59 Last Admin: 08/14/19 08:09 Dose: 5,000 units Documented by: (1) CHF (congestive heart failure) Heart failure chronicity: acute on chronic Heart failure type: unspecified Qualified Code(s): I50.9 - Heart failure, unspecified
--- NOTE | 2019-08-14 12:08 | Progress Notes ---
DATE: 08/14/2019 NEPHROLOGY PROGRESS NOTE SUBJECTIVE: Overnight, the patient continues to diurese. She does not have shortness of breath, but she still has massive edema bilaterally. Denies nausea, vomiting or any other symptoms. OBJECTIVE: VITAL SIGNS: Blood pressure is 150/80, pulse 53, temperature 36.6, 96% on room air. HEENT: Mucous membranes moist. NECK: Supple. No jugular venous distention. CHEST: Bilaterally clear to auscultation. CARDIOVASCULAR: S1 and S2 regular. ABDOMEN: Soft, nontender. EXTREMITIES: Show 3+ edema bilaterally and it is very firm. Urine output yesterday was 3250 mL. LABORATORY TEST: From this morning was reviewed in detail. BUN 38, creatinine 2.99, which is slightly higher than yesterday. Sodium 143, potassium 4.2. Hemoglobin 10. ASSESSMENT AND PLAN: A 59-year-old female with chronic kidney disease stage IV at baseline as well as significant cardiac disease, admitted with congestive heart failure/fluid retention. 1. Congestive heart failure/fluid retention: She has very low ejection fraction as well as diabetic low perfusion-related chronic kidney disease, and given 12-system involvement, she definitely has big problem with fluid retention. At this time, she is getting Lasix 40 mg 3 times a day and is responding pretty good and I would continue the same for the time being as she still has massive amount of edema. Increase the outpatient diuretics substantially at the time of discharge. I would rather see her creatinine higher than being this degree of fluid overload. 2. Chronic kidney disease: Current creatinine of 2.99 is very slightly higher than her baseline, but given the degree of fluid retention she had before, that was probably misleading with hemodilution. Continue daily laboratories.
[2019-08-14] MEDS: FUROSEMIDE 40 MG TAB PO SCH (17:25)
[2019-08-14] MEDS ORDERED: ZOLPIDEM TARTRATE 5 MG TAB PO PRN (18:24)
[2019-08-14] MEDS: ATORVASTATIN 40 MG TAB PO SCH (21:15)
--- NOTE | 2019-08-14 23:37 | Hospitalist Progress Note ---
Date of Service August 14, 2019 Assessment & Plan (1) Acute on chronic combined systolic (congestive) and diastolic (congestive) heart failure: (2) Acute kidney injury superimposed on CKD: (3) CKD (chronic kidney disease), stage IV: (4) Lower extremity edema: per admitting service notes: Patient with acute volume overload with CHF exacerbation and 16 lb weight gain. She has severe lower extremity edema up to her thighs, pleural effusions B/L (small), and abdominal fullness. Likely related to volume overload. Discussed patient with Cardiology (Dr. Olvera) who recommended starting patient on IV Lasix 60 mg BID. She was given 1 dose in the ED. She has urinated once since it was given. -- Lasix IV BID Crea 2.3 --> 2.9 diuresing well continue Lasix TID -- Nephro and Heater Operator Helper consulted (5) Bilateral pleural effusion: (6) Right lower lobe pulmonary infiltrate: Pleural effusions likely due to volume overload. Possible infection vs aspiration pneumonitis on CXR as well. COVID test negative continue Augmentin (7) CAD (coronary artery disease): (8) Frequent PVCs: (9) Cardiomyopathy: (10) HTN (hypertension): echo in June 2019: EF 20-25% on [facility] EP consulted per Cardio, for ICD placement tomorrow monitor (11) Dyslipidemia: Continue statin (12) Type 2 diabetes mellitus: Last A1C 7.3 as outpatient. Insulin protocol (13) Hypothyroidism: Continue levothyroxine. (14) DVT prophylaxis: SQ Heparin Admission and Anticipated Discharge Date Admission Date: August 10, 2019 Subjective Follow-up for volume overload, cardiomyopathy Seen resting in bed side chair, comfortable, not in distress States she feels improved today No shortness of breath, cough, sputum production, fevers or chills No chest pain No problems with urination No other symptoms Review of Systems Review of Systems: All systems reviewed & are unremarkable except as noted in HPI & below Physical Exam Physical Exam: General- oriented x 3, not in distress, speaks in sentences with no effort or accessory muscle use Eyes- anicteric Neck- no JVD Lungs- clear breath sounds bilaterally, no rales/wheezes Heart- normal rate, regular rhythm; no murmurs Abdomen- normal bowel sounds, nondistended, soft, nontender Extremities-grade 2 lower leg edema edema, no calf tenderness No erythema warmth or tenderness Neuro- alert, oriented x 3; no gross focal neurologic deficits Skin- warm & dry Results & Data Results & Data ([facility]) Vital Signs (Past 12 Hours) Vital Signs Temp Pulse Pulse Resp BP Pulse Ox 08/14/19 19:10 37.2 C 63 18 151/62 H 93 08/14/19 16:08 36.8 C 54 L 18 116/46 L 93 08/14/19 15:16 54 L 08/14/19 12:28 36.9 C 62 18 148/67 H 95
[2019-08-15] MEDS: PANTOprazole 40 MG TAB PO SCH (05:32)
[2019-08-15] MEDS: HEPARIN SOD 5,000 UNIT/0.5 ML VIAL SQ SCH ×3 (05:32→21:14)
[2019-08-15] MEDS: LEVOTHYROXINE SODIUM 50 MCG TABLET PO SCH (05:32)
[2019-08-15 06:49] LABS: Calcium 8.6 mg/dl (8.5-10.1); Creatinine Clr Calc Pharmacy 30.7 ml/min; Est GFR (African American) 22.2; Est GFR (Non-African American) 19.1
[2019-08-15] MEDS: ISOSORBIDE DINITRATE 10 MG TAB PO SCH ×3 (07:42→16:34)
[2019-08-15] MEDS: AMOXICILLIN/CLAVULANATE 500 MG TAB PO SCH ×2 (07:43→16:32)
[2019-08-15] MEDS: AMIODARONE 200 MG TAB PO SCH (07:43)
[2019-08-15] MEDS: AMLODIPINE BESYLATE 5 MG TAB PO SCH (07:44)
[2019-08-15] MEDS: INSULIN ASPART 100 UNITS/ML 3 ML PEN SC SCH ×4 (07:44→21:13)
[2019-08-15] MEDS ORDERED: MIDAZOLAM HCL 5 MG/ML 1 ML VIAL ONE (08:16)
[2019-08-15] MEDS ORDERED: CEFAZOLIN 250 MG/ML 1 GM VIAL ONE (08:17)
[2019-08-15] MEDS ORDERED: fentaNYL citrate 100 MCG/2 ML VIAL ONE ×2 (08:17→09:50)
[2019-08-15] MEDS ORDERED: BACITRACIN INJ 50,000 UNIT VIAL ONE (08:17)
--- NOTE | 2019-08-15 09:04 | History & Physical Bridge Note ---
Date of Service August 15, 2019 History & Physical Bridge Note I have examined the patient, reviewed the History & Physical and in the interval since the performance of the History & Physical I have noted the following changes of clinical significance: Pt repeat echo still shows EF is down; she is still having PVCs. She has successfully been diuresed. Recommend dual chamber ICD; rediscussed the procedure and potential risks; consents signed
--- NOTE | 2019-08-15 09:04 | Pre Anesthesia Assessment ---
Date of Service August 15, 2019 Pre Sedation Assessment Vital Signs Temp Pulse Pulse Pulse Resp BP BP 08/15/19 08:28 54 L 16 158/58 H 08/15/19 07:30 36.6 C 62 16 147/98 H 08/15/19 03:30 36.6 C 51 L 18 128/56 L 08/15/19 00:00 36.8 C 52 L 17 136/59 L 08/14/19 19:10 37.2 C 63 18 151/62 H 08/14/19 16:08 36.8 C 54 L 18 116/46 L 08/14/19 15:16 54 L 08/14/19 12:28 36.9 C 62 18 148/67 H Pulse Ox 08/15/19 08:28 94 08/15/19 07:30 97 08/15/19 03:30 92 08/15/19 00:00 94 08/14/19 19:10 93 08/14/19 16:08 93 08/14/19 15:16 08/14/19 12:28 95 Cardiovascular + bradycardic Respiratory normal respiratory effort, lungs clear to auscultation Pre-Sedation Airway Assessment Smoking Status: Never smoker Hx Sleep Apnea: No Short, Thick Neck: Yes Thyromental Distance: > or= 3.5 Finger Breadths Oral Cavity: + Capped Teeth Mallampati Class: III ASA: ASA3 NPO Status Date of Last Intake of Fluids: 08/14/19 Time of Last Intake of Fluids: 21:00 Date of Last Intake of Solid Food: 08/14/19 Time of Last Intake of Solid Foods: 21:00 Procedure Planning Contraindications for Sedation: none Current Medications Reviewed: Yes Notes The planned sedation has been discussed with the patient. Informed Consent was obtained. I have identified the patient, determined the appropriateness of sedation and have assessed the patient immediately prior to the procedure. All medicine(s) and interventions are by my order.
[2019-08-15] MEDS ORDERED: LIDOCAINE HCL 1% 20 ML VIAL ONE (09:09)
[2019-08-15] MEDS ORDERED: BUPIVACAINE 0.5 % 5 MG/1 ML PF 10ML VIAL ONE (09:09)
--- NOTE | 2019-08-15 09:47 | Hospitalist Progress Note ---
Date of Service August 15, 2019 Assessment & Plan (1) Acute on chronic combined systolic (congestive) and diastolic (congestive) heart failure: (2) Acute kidney injury superimposed on CKD: (3) CKD (chronic kidney disease), stage IV: (4) Lower extremity edema: per admitting service notes: Patient with acute volume overload with CHF exacerbation and 16 lb weight gain. She has severe lower extremity edema up to her thighs, pleural effusions B/L (small), and abdominal fullness. Likely related to volume overload. Discussed patient with Cardiology (Dr. Olvera) who recommended starting patient on IV Lasix 60 mg BID. She was given 1 dose in the ED. She has urinated once since it was given. -- Lasix IV BID Crea 2.66 today diuresing well continue Lasix TID -- Nephro and Clinical Data Programmer on case (5) Bilateral pleural effusion: (6) Right lower lobe pulmonary infiltrate: Pleural effusions likely due to volume overload. Possible infection vs aspiration pneumonitis on CXR as well. COVID test negative continue Augmentin (7) CAD (coronary artery disease): (8) Frequent PVCs: (9) Cardiomyopathy: (10) HTN (hypertension): echo in June 2019: EF 20-25% on [facility] EP consulted per Cardio, for ICD placement today monitor (11) Dyslipidemia: Continue statin (12) Type 2 diabetes mellitus: Last A1C 7.3 as outpatient. Insulin protocol (13) Hypothyroidism: Continue levothyroxine. (14) DVT prophylaxis: SQ Heparin Labs Checked, ICD today, DC 1-2 days ROS-No Headache, No Visual Changes, No Nausea, No Vomiting, No Fever, No Chills, No Neck Pain or Stiffness, No Chest Pain, No Palpitations, No SOB, No [place], No Cough, No Sputum, No Wheezing, No Abdominal Pain, No Diarrhea, No Hematemesis, No Hemoptysis, No Unexpected Weight Loss, No Flank pain, No Melena, No Hematochezia, No Frequency, No Urgency, No Burning, No Hematuria, No Rashes, No Diaphoresis. Appetite is Normal Physical Exam Gen-AAO x 3, NAD, Afebrile, obese Head-NCAT, EOMI, PERRLA, Anicteric Sclera, No Posterior Pharyngeal Erythema Neck-Supple, No JVD, No Thyromegaly, No Masses, No LAD, No Bruits Lungs-Clear to Auscultation Bilaterally, No Rales, No Rhonchi, No Wheezing, No Crepitus Chest-No S4, +S1, +S2, No S3, No Murmurs, No Rubs, No Gallops, No Ectopy Abdomen-Soft, Bowel Sounds Present, Non Tender, Non Distended, No Hepatomegaly, No Splenomegaly, No Palpable Masses, No Rebound, No Rigidity, No Guarding Musculoskeletal-Full Range of Motion Bilaterally, No CVAT Extremities-No Cyanosis, No Clubbing, + Edema Nuero-Cranial Nerves II-XII grossly intact, Motor WNL, DTRs WNL, Strength WNL, Non Focal Psych-Normal Mood Admission and Anticipated Discharge Date Admission Date: August 10, 2019 Results & Data Results & Data ([facility]) Vital Signs (Past 12 Hours) Vital Signs Temp Pulse Pulse Resp BP BP Pulse Ox 08/15/19 08:28 54 L 16 158/58 H 94 08/15/19 07:30 36.6 C 62 16 147/98 H 97 08/15/19 03:30 36.6 C 51 L 18 128/56 L 92 08/15/19 00:00 36.8 C 52 L 17 136/59 L 94
--- NOTE | 2019-08-15 10:40 | Post Anesthesia Assessment ---
Date of Service August 15, 2019 Post Sedation Assessment Vital Signs Temp Pulse Pulse Pulse Resp BP BP 08/15/19 08:28 54 L 16 158/58 H 08/15/19 07:30 36.6 C 62 16 147/98 H 08/15/19 03:30 36.6 C 51 L 18 128/56 L 08/15/19 00:00 36.8 C 52 L 17 136/59 L 08/14/19 19:10 37.2 C 63 18 151/62 H 08/14/19 16:08 36.8 C 54 L 18 116/46 L 08/14/19 15:16 54 L 08/14/19 12:28 36.9 C 62 18 148/67 H Pulse Ox 08/15/19 08:28 94 08/15/19 07:30 97 08/15/19 03:30 92 08/15/19 00:00 94 08/14/19 19:10 93 08/14/19 16:08 93 08/14/19 15:16 08/14/19 12:28 95 Recovery Score Activity: Moves 4 extremities Respiration: Deep Breath/Cough Circulation: +/-20% PreAnes Value Consciousness: Fully Awake Oxygen Saturation: > 92% On Room Air Discharge Sedation Level of Care: Fast Track Phase II Post Sedation Plan On clinical assessment, the patient appears to have tolerated the sedation without complications. Patient is recovering as anticipated. Patient will continue to be monitored by nursing and may be discharged when sedation discharge criteria are met per below protocol. Upon Completions of procedure up to 15 minutes continue every 5 minute vital signs and the P.A.R. score; then discharge to a Phase I or Fast Track to Phase II per the following guidelines: * Discharge Patient to appropriate Phase II area if PAR is 8 or greater or return to pre- procedure baseline. The post - procedure orders will be as directed. * If PAR score is less than 8 or not return to pre-procedure baseline then patient will follow Phase I monitoring till PAR is reached for Phase II. The Phase I may be done in procedure room or may call to secure a Phase I area. * If naloxone or flumazenil are used for reversal, hold in Phase I for continued monitoring from when last reversal dose was given for a minimum of 60 minutes or longer pending the nurse and/or physician discretion of patient condition before discharge to Phase II. Please call the Sedation Physician to re-evaluate and complete post-note for discharge to Phase II area. Do NOT discharge from procedure sedation or Phase 1 until post- sedation evaluation note is complete by procedure /sedation MD Sedation Discharge Instructions to be given to the patient at discharge to home.
[2019-08-15] MEDS ORDERED: NURSING DECISION MEDICATION ONE (10:41)
--- NOTE | 2019-08-15 10:41 | Operative Report ---
Post Operative Report Pre & Post Diagnosis ICM, SB Operation Date: 08/14/19 09:00 <No data on this case meets the specified criteria> Operation Date: 08/15/19 09:00 <No data on this case meets the specified criteria> I identified the patient and participated in the time-out.: Yes Procedure Operation Date: 08/14/19 09:00 <No data on this case meets the specified criteria> Operation Date: 08/15/19 09:00 Actual Procedures p ICD Insertion Single or Dual - Janie Maharaj DO Surgeon Janie Maharaj, DO Formula Bottler none Estimated Blood Loss 25 Findings Consistent with Post-Op Diagnosis Specimens none Description of Procedure see official report I attest to the content of the Intraoperative Record and any orders documented therein. Any exceptions are noted below.
[2019-08-15] MEDS: CHOLECALCIFEROL 1,000 UNITS 25 MCG TAB PO SCH (11:29)
[2019-08-15] MEDS: ASPIRIN 81 MG CHEW PO SCH (11:29)
[2019-08-15] MEDS: FERROUS SULFATE 325 MG TAB PO SCH (11:30)
[2019-08-15] MEDS: POTASSIUM CHLORIDE 20 MEQ TABCR PO SCH (11:30)
[2019-08-15] MEDS: CLOPIDOGREL BISULFATE 75 MG TAB PO SCH (11:30)
[2019-08-15] MEDS: FUROSEMIDE 40 MG TAB PO SCH (11:32)
[2019-08-15] MEDS: INSULIN GLARGINE SOLOSTAR 100 UNITS/ML 3 ML PEN SC SCH (11:42)
--- NOTE | 2019-08-15 13:10 | Cardiology Progress Note ---
Date of Service August 15, 2019 Assessment & Plan (1) CHF (congestive heart failure): (2) Bilateral edema of lower extremity: (3) LIVINGSTON (dyspnea on exertion): (4) Bilateral pleural effusion: (5) Acute on chronic combined systolic (congestive) and diastolic (congestive) heart failure: (6) Cardiomyopathy: (7) CAD (coronary artery disease): (8) Type 2 diabetes mellitus: (9) Obesity: (10) DONALD (obstructive sleep apnea): The patient received her ICD this morning. She is doing well. I agree with nephrology and increasing her oral Lasix to 80 mg twice daily. She will need a sleep evaluation soon after discharge. Subjective The patient had an ICD this morning. The procedure went well. She is eating lunch. Review of Systems Review of Systems: All systems reviewed & are unremarkable except as noted in HPI & below Nothing additional to add. Physical Exam Physical Exam: General: no acute distress and stated age Head: normocephalic, no masses, lesions, tenderness or abnormalities Eyes: conjunctiva are pink and non-injected, sclera clear Neck: supple, no adenopathy, no bruits, normal jugular venous pulse, no hepatojugular reflux Chest: normal shape and normal respiratory effort Lungs: clear to auscultation and percussion Cardiac Exam: - regular rate & rhythm, no murmurs gallops or rubs - normal S1, normal S2 Pulses: 2(+) throughout Abdomen: abdomen soft, non-tender, no abnormal masses and no hepatosplenomegaly Musculoskeletal: no gait disturbance, no joint inflammation, no deforming arthritis Extremities: Edema has improved. Neuro: grossly normal exam Results & Data Vital Signs (Past 12 Hours) Vital Signs Temp Pulse Pulse Resp BP BP Pulse Ox 08/15/19 11:27 67 16 117/55 L 94 08/15/19 11:12 77 16 143/62 H 93 08/15/19 11:05 66 16 148/61 H 94 08/15/19 11:00 64 16 158/62 H 92 08/15/19 10:50 76 16 150/79 H 92 08/15/19 08:28 54 L 16 158/58 H 94 08/15/19 07:30 36.6 C 62 16 147/98 H 97 08/15/19 03:30 36.6 C 51 L 18 128/56 L 92 Laboratory Results Laboratory Results - last 24 hr 08/14/19 08/14/19 08/15/19 16:28 20:04 05:41 Sodium 140 Potassium 4.0 Chloride 104 Carbon Dioxide 28 Anion Gap 8.0 BUN 32 H Creatinine 2.66 H D Est Cr Clr Drug Dosing 30.7 Est GFR ( Amer) 22.2 Est GFR (Non-Af Amer) 19.1 BUN/Creatinine Ratio 12.0 Glucose 96 POC Glucose 107 H 103 H Calcium 8.6 08/15/19 08/15/19 07:34 11:21 Sodium Potassium Chloride Carbon Dioxide Anion Gap BUN Creatinine Est Cr Clr Drug Dosing Est GFR ( Amer) Est GFR (Non-Af Amer) BUN/Creatinine Ratio Glucose POC Glucose 94 104 H Calcium Medications Administered Current Inpatient Medications Acetaminophen (Tylenol) 650 mg PO Q4H PRN PRN Reason: Pain or Fever Stop: 09/09/19 20:01 Last Admin: 08/13/19 09:52 Dose: 650 mg Documented by: Amiodarone HCl (Cordarone) 200 mg PO DAILY [facility] Stop: 09/12/19 08:59 Last Admin: 08/15/19 07:43 Dose: 200 mg Documented by: Amlodipine Besylate (Norvasc) 5 mg PO DAILY [facility] Stop: 09/10/19 08:59 Last Admin: 08/15/19 07:44 Dose: 5 mg Documented by: Amoxicillin/Clavulanate Potassium (Augmentin 500mg) 1 tab PO BIDM [facility]; Protocol Stop: 08/17/19 20:59 Last Admin: 08/15/19 07:43 Dose: 1 tab Documented by: Aspirin (Aspirin Chew) 81 mg PO DAILY [facility] Stop: 09/10/19 08:59 Last Admin: 08/15/19 11:29 Dose: 81 mg Documented by: Atorvastatin Calcium (Lipitor) 80 mg PO PM [facility] Stop: 09/09/19 20:59 Last Admin: 08/14/19 21:15 Dose: 80 mg Documented by: Clopidogrel Bisulfate (Plavix) 75 mg PO DAILY [facility] Stop: 09/10/19 08:59 Last Admin: 08/15/19 11:30 Dose: 75 mg Documented by: Dextrose (Dextrose 50%) 25 - 50 ml IV UD PRN; Protocol PRN Reason: Hypoglycemia Protocol Stop: 09/09/19 20:01 Famotidine (Pepcid) 20 mg PO DAILY PRN PRN Reason: Gi Upset Stop: 09/09/19 20:04 Ferrous Sulfate (Feosol) 325 mg PO DAILY [facility] Stop: 09/10/19 08:59 Last Admin: 08/15/19 11:30 Dose: 325 mg Documented by: Furosemide (Lasix) 80 mg PO BID17 [facility] Stop: 09/14/19 16:59 Glucagon (Glucagen) 1 mg SQ UD PRN; Protocol PRN Reason: Hypoglycemia Protocol Stop: 09/09/19 20:01 Glucose (Dex4 Glucose) 4 - 8 tabs PO UD PRN; Protocol PRN Reason: Hypoglycemia Protocol Stop: 09/09/19 20:01 Glucose (Glucose 40%) 15 - 30 gm PO UD PRN; Protocol PRN Reason: Hypoglycemia Protocol Stop: 09/09/19 20:01 Heparin Sodium (Porcine) (Heparin Sodium (Porcine)) 5,000 units SQ Q8 [facility] Stop: 09/09/19 21:59 Last Admin: 08/15/19 05:32 Dose: Not Given Documented by: Insulin Aspart (Novolog Flexpen) 0 units SC [facility] Stop: 09/09/19 20:59 Last Admin: 08/15/19 11:41 Dose: 1 units Documented by: Insulin Glargine (Lantus Solostar Pen) 20 units SC [facility] Stop: 09/12/19 20:59 Last Admin: 08/15/19 11:42 Dose: Not Given Documented by: Isosorbide Dinitrate (Isordil) 10 mg PO TID@0700,1200,1700 [facility] Stop: 09/09/19 20:59 Last Admin: 08/15/19 11:30 Dose: 10 mg Documented by: Levothyroxine Sodium (Synthroid) 50 mcg PO DAILYBB [facility] Stop: 09/10/19 06:29 Last Admin: 08/15/19 05:32 Dose: 50 mcg Documented by: Miscellaneous (Carbohydrates For Hypoglycemia) 15 - 30 gm PO UD PRN PRN Reason: Hypoglycemia Protocol Stop: 09/09/19 20:01 Pantoprazole Sodium (Protonix) 40 mg PO DAILYBB [facility] Stop: 09/10/19 06:29 Last Admin: 08/15/19 05:32 Dose: 40 mg Documented by: Potassium Chloride (Klor-Con M20) 20 meq PO QAM [facility] Stop: 09/11/19 11:44 Last Admin: 08/15/19 11:30 Dose: 20 meq Documented by: Vitamin D (Vitamin D3) 5,000 units PO DAILY [facility] Stop: 09/10/19 08:59 Last Admin: 08/15/19 11:29 Dose: 5,000 units Documented by: Zolpidem Tartrate (Ambien) 5 mg PO HS PRN PRN Reason: Sleep Stop: 09/13/19 18:23 (1) CHF (congestive heart failure) Heart failure chronicity: acute on chronic Heart failure type: unspecified Qualified Code(s): I50.9 - Heart failure, unspecified
--- NOTE | 2019-08-15 14:50 | Electrocardiogram Report ---
Test Reason : Blood Pressure : / mmHG Vent. Rate : 070 BPM Atrial Rate : 066 BPM P-R Int : 260 ms QRS Dur : 090 ms QT Int : 460 ms P-R-T Axes : 024 031 140 degrees QTc Int : 496 ms Atrial-paced rhythm with prolonged AV conduction with frequent Premature ventricular complexes Anterolateral infarct (cited on or before 15-AUG-2019) Abnormal ECG When compared with ECG of 10-AUG-2019 15:16, Electronic atrial pacemaker has replaced Sinus rhythm Anterior infarct Present Confirmed by Aly Jovel ([id number]) on 08/15/2019 2:50:23 PM Referred By: Caden Olvera Confirmed By:Aly Jovel
[2019-08-15] MEDS: ACETAMINOPHEN 325 MG TAB PO PRN ×2 (16:31→21:44)
[2019-08-15] MEDS: FUROSEMIDE 80 MG TAB PO SCH (16:34)
[2019-08-15] MEDS: ATORVASTATIN 40 MG TAB PO SCH (21:13)
[2019-08-16] MEDS: HEPARIN SOD 5,000 UNIT/0.5 ML VIAL SQ SCH (06:21)
[2019-08-16] MEDS: PANTOprazole 40 MG TAB PO SCH (06:22)
[2019-08-16] MEDS: ISOSORBIDE DINITRATE 10 MG TAB PO SCH ×2 (06:22→11:58)
[2019-08-16] MEDS: LEVOTHYROXINE SODIUM 50 MCG TABLET PO SCH (06:22)
[2019-08-16 06:41] LABS: Hematocrit (blood only) 35.3 % (37-47); Hemoglobin 10.2 g/dL (12.0-16.0); Mean Corpuscular Hgb Conc 28.9 g/dL (32-36); Mean Corpuscular Volume 79.5 fL (80-100); Mean Platelet Volume 11.4 fL (7.4-10.4); Platelet Count 174 K/uL (130-400); RDW Coefficient of Variation 18.8 % (11.5-14.5); RDW Standard Deviation 53.2 fL (36.4-46.3); Red Blood Count 4.44 M/uL (4.2-5.4); White Blood Count 5.23 K/uL (4.8-10.8)
[2019-08-16 07:15] LABS: BUN Creatinine Ratio 12.9 (10-20); Calcium 8.4 mg/dl (8.5-10.1); Creatinine Clr Calc Pharmacy 32.6 ml/min; Est GFR (African American) 23.9; Est GFR (Non-African American) 20.6; Potassium 4.2 mmol/L (3.5-5.1)
[2019-08-16] MEDS: FERROUS SULFATE 325 MG TAB PO SCH (07:42)
[2019-08-16] MEDS: AMOXICILLIN/CLAVULANATE 500 MG TAB PO SCH (07:42)
[2019-08-16] MEDS: CHOLECALCIFEROL 1,000 UNITS 25 MCG TAB PO SCH (07:42)
[2019-08-16] MEDS: ASPIRIN 81 MG CHEW PO SCH (07:42)
[2019-08-16] MEDS: POTASSIUM CHLORIDE 20 MEQ TABCR PO SCH (07:42)
[2019-08-16] MEDS: CLOPIDOGREL BISULFATE 75 MG TAB PO SCH (07:42)
[2019-08-16] MEDS: FUROSEMIDE 80 MG TAB PO SCH (07:43)
[2019-08-16] MEDS: AMLODIPINE BESYLATE 5 MG TAB PO SCH (07:43)
[2019-08-16] MEDS: AMIODARONE 200 MG TAB PO SCH (07:43)
[2019-08-16] MEDS: INSULIN ASPART 100 UNITS/ML 3 ML PEN SC SCH ×2 (07:44→11:58)
[2019-08-16] MEDS: INSULIN GLARGINE SOLOSTAR 100 UNITS/ML 3 ML PEN SC SCH (07:44)
[2019-08-16] MEDS: ACETAMINOPHEN 325 MG TAB PO PRN (07:55)
--- NOTE | 2019-08-16 08:53 | XRay Report ---
XR chest 2V PA/lateral CLINICAL HISTORY: Post implantable defibrillator placement COMPARISON STUDY: 08/10/2019 FINDINGS: The heart remains enlarged. There are postsurgical changes of midline sternotomy. There is been interval placement of a left subclavian ICD. There is no pneumothorax. Lead position appears unr emarkable. There is mild pulmonary vascular congestion. There is slight increase in the size the righ t pleural effusion. There are persistent associated right basilar airspace opacities[ IMPRESSION: No evidence of pneumothorax status post placement of a left subclavian ICD ACT 112: Negative or not required by law. Electronically signed by: Ned Finch M.D. 08/16/2019 8:52 AM
--- NOTE | 2019-08-16 10:05 | Discharge Summary ---
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 She was seen at the Cardiology office today as an outpatient and was noted to have progressive LIVINGSTON over the past couple of weeks and 16 lb weight gain. She was previously admitted to [facility] in June 2019 for near syncope. She had an updated Echo which showed severely worsening LV systolic dysfunction. She had repeat Echo as an outpatient today which showed EF 25-29%, diffuse hypokinesis/akinesis, elevated right atrial pressure of 15 mmHg, Grade III diastolic dysfunction, Pulmonary HTN with Pulmonary artery systolic pressure of 56 mmHg. He Lasix was held for 3 days in July due to worsening creatinine. She typically has a baseline creatinine around 2.0-2.1. Recently, it has been up to 2.8. She has noted worsening edema at home, increased abdominal fullness/bloating, and poor appetite. Dr. Olvera recommended that the patient be admitted to the hospital for IV diuresis and close monitoring due to cardiorenal syndrome and worsening creatinine recently. She denies chest pain, lightheadedness, dizziness, WILDER, dysphagia, abdominal pain, N/V/D/C, or urinary symptoms. No cough. She has had some mild congestion on and off which Flonase helped. She also notices some 'gurgling' in her throat when she lays down at night sometimes. This causes her to have problems sleeping. She also states that she can feel her heart beating in her throat at times which keeps her up at night. She was previously on Losartan, but it was discontinued because of worsening CKD. Following her admission in June, she was sent home with a life vest. Discussed patient with Dr. Olvera in Cardiolgy this morning who recommended starting IV Lasix 60 mg BID for now and monitoring the patient closely. Upon presentation, patient has CXR which showed some small pleural effusions and RLL patchy consolidation- consider pneumonia vs aspiration pneumonitis per the radiologist. Admission Exam Per Admitting Provider Constitutional: WD/WN, vitals as above Eyes: PERRL, conjunctivae normal, anicteric sclerae Neck: trachea midline, no thyromegaly Respiratory: normal respiratory effort; no respiratory distress and no labored breathing Cardiovascular: Rate/Rhythm: regular rate Extremities: + edema (Severe edema in the B/L LE up to thighs) Skin: no rashes, warm and dry Principal Diagnosis (1) Acute on chronic combined systolic (congestive) and diastolic (congestive) heart failure: (2) Acute kidney injury superimposed on CKD: (3) CKD (chronic kidney disease), stage IV: (4) Lower extremity edema: (5) Bilateral pleural effusion: (6) Right lower lobe pulmonary infiltrate: (7) CAD (coronary artery disease): (8) Frequent PVCs: (9) Cardiomyopathy: (10) HTN (hypertension): (11) Dyslipidemia: (12) Type 2 diabetes mellitus: (13) Hypothyroidism: Discharge Exam See below Discharge Data Allergies Allergy/AdvReac Type Severity Reaction Status Date / Time lisinopril Allergy Severe Diarrhea Verified 08/10/19 17:31 escitalopram [From Lexapro] AdvReac Severe NAUSEA/VOMI Verified 08/10/19 17:31 TING Consultations 08/10/19 15:40 ED Decision to Admit Stat 08/10/19 20:02 Consult Cardiology Routine Consult Case Management - Discharge Planning Routine Consult Nephrology Routine Procedures Performed Operation Date: 08/14/19 09:00 <No data on this case meets the specified criteria> Operation Date: 08/15/19 09:00 Actual Procedures p ICD Insertion Single or Dual - Janie Maharaj DO s Venogram, Unilateral - Janie Maharaj DO Ordered Studies 08/15/19 07:37 CL Cath Imgs for PACS use only Routine 08/16/19 08/16/19 08/16/19 Range/Units 07:41 06:08 06:08 WBC 5.23 (4.8-10.8) K/uL RBC 4.44 (4.2-5.4) M/uL Hgb 10.2 L (12.0-16.0) g/dL Hct 35.3 L (37-47) % MCV 79.5 L (80-100) fL MCH 23.0 L (25-34) pg MCHC 28.9 L (32-36) g/dL RDW Std Deviation 53.2 H (36.4-46.3) fL RDW Coeff of Kami 18.8 H (11.5-14.5) % Plt Count 174 (130-400) K/uL MPV 11.4 H (7.4-10.4) fL Sodium 142 (136-145) mmol/L Potassium 4.2 (3.5-5.1) mmol/L Chloride 106 (98-107) mmol/L Carbon Dioxide 29 (21-32) mmol/L Anion Gap 7.0 (3-11) BUN 32 H (7-18) mg/dl Creatinine 2.50 H (0.6-1.2) mg/dl Est Cr Clr Drug Dosing 32.6 ml/min Est GFR ( Amer) 23.9 Est GFR (Non-Af Amer) 20.6 BUN/Creatinine Ratio 12.9 (10-20) Glucose 106 H (70-99) mg/dl POC Glucose 126 H (70-99) mg/dl Calcium 8.4 L (8.5-10.1) mg/dl 08/15/19 08/15/19 08/15/19 Range/Units 20:22 16:12 11:21 WBC (4.8-10.8) K/uL RBC (4.2-5.4) M/uL Hgb (12.0-16.0) g/dL Hct (37-47) % MCV (80-100) fL MCH (25-34) pg MCHC (32-36) g/dL RDW Std Deviation (36.4-46.3) fL RDW Coeff of Kami (11.5-14.5) % Plt Count (130-400) K/uL MPV (7.4-10.4) fL Sodium (136-145) mmol/L Potassium (3.5-5.1) mmol/L Chloride (98-107) mmol/L Carbon Dioxide (21-32) mmol/L Anion Gap (3-11) BUN (7-18) mg/dl Creatinine (0.6-1.2) mg/dl Est Cr Clr Drug Dosing ml/min Est GFR ( Amer) Est GFR (Non-Af Amer) BUN/Creatinine Ratio (10-20) Glucose (70-99) mg/dl POC Glucose 129 H 115 H 104 H (70-99) mg/dl Calcium (8.5-10.1) mg/dl Hospital Course (1) Acute on chronic combined systolic (congestive) and diastolic (congestive) heart failure: (2) Acute kidney injury superimposed on CKD: (3) CKD (chronic kidney disease), stage IV: (4) Lower extremity edema: per admitting service notes: Patient with acute volume overload with CHF exacerbation and 16 lb weight gain. She has severe lower extremity edema up to her thighs, pleural effusions B/L (small), and abdominal fullness. Likely related to volume overload. Discussed patient with Cardiology (Dr. Olvera) who recommended starting patient on IV Lasix 60 mg BID. She was given 1 dose in the ED. She has urinated once since it was given. -- Lasix IV BID Crea 2.3 --> 2.8 diuresing well continue Lasix -- Nephro and Marketing And Public Relations Manager on case, s/p AICD 08/[address] Maharaj (5) Bilateral pleural effusion: (6) Right lower lobe pulmonary infiltrate: Pleural effusions likely due to volume overload. Possible infection vs aspiration pneumonitis on CXR as well. COVID test negative continue Augmentin (7) CAD (coronary artery disease): (8) Frequent PVCs: (9) Cardiomyopathy: (10) HTN (hypertension): echo in June 2019: EF 20-25% (11) Dyslipidemia: Continue statin (12) Type 2 diabetes mellitus: Last A1C 7.3 as outpatient. Insulin protocol (13) Hypothyroidism: Continue levothyroxine. (14) DVT prophylaxis: SQ Heparin Labs Checked, ICD done, wound check OK, DC today ROS-No Headache, No Visual Changes, No Nausea, No Vomiting, No Fever, No Chills, No Neck Pain or Stiffness, Sore Chest Pain at AICD site, No Palpitations, No SOB , No LIVINGSTON, No Cough, No Sputum, No Wheezing, No Abdominal Pain, No Diarrhea, No Hematemesis, No Hemoptysis, No Unexpected Weight Loss, No Flank pain, No Melena, No Hematochezia, No Frequency, No Urgency, No Burning, No Hematuria, No Rashes, No Diaphoresis. Appetite is Normal Physical Exam Gen-AAO x 3, NAD, Afebrile, obese Head-NCAT, EOMI, PERRLA, Anicteric Sclera, No Posterior Pharyngeal Erythema Neck-Supple, No JVD, No Thyromegaly, No Masses, No LAD, No Bruits Lungs-Clear to Auscultation Bilaterally, No Rales, No Rhonchi, No Wheezing, No Crepitus Chest-No S4, +S1, +S2, No S3, No Murmurs, No Rubs, No Gallops, No Ectopy Abdomen-Soft, Bowel Sounds Present, Non Tender, Non Distended, No Hepatomegaly, No Splenomegaly, No Palpable Masses, No Rebound, No Rigidity, No Guarding Musculoskeletal-Full Range of Motion Bilaterally, No CVAT Extremities-No Cyanosis, No Clubbing, + Edema Nuero-Cranial Nerves II-XII grossly intact, Motor WNL, DTRs WNL, Strength WNL, Non Focal Psych-Normal Mood Total Time Total Time Spent Total Time Spent (In Minutes): 45 mins Total Time Includes: Examination of the Patient, Discharge Planning, Medication Reconciliation and Communication With Other Providers Discharge Plan Discharge Items Patient Disposition: Home - Self-Care Reason For Visit: CHF Discharge Diagnosis: (1) Acute on chronic combined systolic (congestive) and diastolic (congestive) heart failure: (2) Acute kidney injury superimposed on CKD: (3) CKD (chronic kidney disease), stage IV: (4) Lower extremity edema: (5) Bilateral pleural effusion: (6) Right lower lobe pulmonary infiltrate: (7) CAD (coronary artery disease): (8) Frequent PVCs: (9) Cardiomyopathy: (10) HTN (hypertension): (11) Dyslipidemia: (12) Type 2 diabetes mellitus: (13) Hypothyroidism: Condition on Discharge: Good Activity: As commented below Activity Comment: do not lift the left elbow over the left shoulder for 1 month Lifting: No more than 10 pounds Lifting Comment: do not lift more than 10 pounds with the left arm for 2 weeks Bathing: Keep incision dry Bathing Comment: keep dressing dry and in place until your wound check next week Sexual Activity: Wait until after follow-up appointment Exercise/Sports: Wait until after follow-up appointment Driving/Machine Use: Resume 3 days after discharge Weightbearing: Full weightbearing Non-emergency contact: Primary Care Provider, Specialist and Marketing And Public Relations Manager Call non-emergency contact if: you have any medication questions and your pain is worsening Follow-up/Referrals: Laxmi Olvera DO [Primary Care Provider] - 08/22/19 11:20 am (08/22/2019 11:20 AM Provider Jose Manuel Lopez MD [facility] ) Randal Ocampo DO [Marketing And Public Relations Manager] - (2 weeks) Janie Maharaj DO [Physician] - (2 weeks) Diet: Carb Consistent or DM2 and Heart Healthy Fluids: 1200ml (5 cups) Addtl Attending Provider Instructions: Device and wound check at 1:15pm Tuesday08/21/2019 at [facility] Cardiology Try to wear a sports bra or the surgical bra daily for the next 2 weeks Keep dressing on and dry until your wound check Pending Studies at Discharge: No Stand-Alone Forms: My [facility] [place] ACE*COMM, Smoking Cessation Medications and DC Order Prescriptions: New potassium chloride [Klor-Con M20] 20 mEq Tablet,Er Particles/Crystals 20 meq PO QAM Qty: 30 RF: 0 amoxicillin-pot clavulanate 500-125 mg Tablet 1 tab PO BIDM Qty: 10 RF: 0 oxycodone-acetaminophen [Percocet] 5-325 mg tablet 1 tab PO Q6H PRN (Reason: pain) Qty: 30 RF: 0 Continued amiodarone 200 mg tablet 200 mg PO AMPM RF: 0 cholecalciferol (vitamin D3) 125 mcg (5,000 unit) Tablet 125 mcg PO DAILY RF: 0 ferrous sulfate [iron] 325 mg (65 mg iron) Tablet 325 mg PO DAILY RF: 0 amlodipine 5 mg tablet 5 mg PO DAILY RF: 0 isosorbide dinitrate 10 mg Tablet 10 mg PO TID RF: 0 atorvastatin 80 mg Tablet 80 mg PO PM RF: 0 Lantus U-100 Insulin 100 unit/mL Solution 27 unit SUBCUT QAM RF: 0 clopidogrel [Plavix] 75 mg Tablet 75 mg PO DAILY RF: 0 famotidine [Pepcid] 20 mg Tablet 20 mg PO DAILY PRN (Reason: Gi Upset) RF: 0 levothyroxine 50 mcg Tablet 50 mcg PO DAILYBB RF: 0 pantoprazole [Protonix] 40 mg Tablet,Delayed Release (Dr/Ec) 40 mg PO DAILYBB RF: 0 nitroglycerin [Nitrostat] 0.4 mg Tablet, Sublingual 0.4 mg sublingual DIRECTED PRN (Reason: Chest Pain) RF: 0 aspirin [Aspirin Childrens] 81 mg Tablet,Chewable 81 mg PO DAILY RF: 0 hydrocortisone 2.5 % Cream 1 applic TOPICAL TID PRN (Reason: Skin Irritation) RF: 0 Changed furosemide [Lasix] 40 mg Tablet 80 mg PO BID Qty: 120 RF: 0 Discontinued biotin 1 mg Tablet 1 mg PO DAILY RF: 0 Discharge Orders: Discharge Order (Routine); Ordered 08/16/19 Ordered By: Jeromy Bravo/Other Patient Handouts: Implantable Cardioverter Defibrillator ICD, Living with an Implantable Cardioverter Defibrillator ICD, Heart Failure Signs of Flare-Up, Discharge Instructions for Implantable Cardioverter-Defibrillator ICD Admission Data Admit Date/Time: 08/10/19 16:08 Attending Provider: Jeromy Tam Admit Provider: Lasha Cole Primary Care Provider: Laxmi Olvera Other Providers: Lasha Cole ; Tony Blakely Stacy L. Other Interventions: Discharge Summary Assessment (RN) Last Done: 08/16/19 10:39 DC Date/Time DO NOT enter until pt leaves facility: 08/16/19 13:03
--- NOTE | 2019-08-16 10:35 | Cardiology Progress Note ---
Date of Service August 16, 2019 Assessment & Plan (1) CHF (congestive heart failure): (2) Bilateral edema of lower extremity: (3) [place] (dyspnea on exertion): (4) Bilateral pleural effusion: (5) Acute on chronic combined systolic (congestive) and diastolic (congestive) heart failure: (6) Cardiomyopathy: (7) CAD (coronary artery disease): (8) Type 2 diabetes mellitus: (9) Obesity: (10) DONALD (obstructive sleep apnea): The patient is doing well post ICD implant. The device was checked this morning and functioning appropriately. I believe she is well enough for discharge and outpatient follow-up. I will will arrange follow-up through our device clinic as well as follow-up for heart failure in our clinic within 1 week. Subjective The patient had an uneventful night. She has no new cardiac complaints today. Review of Systems Review of Systems: All systems reviewed & are unremarkable except as noted in HPI & below Nothing additional to add. Physical Exam Physical Exam: General: no acute distress and stated age Head: normocephalic, no masses, lesions, tenderness or abnormalities Eyes: conjunctiva are pink and non-injected, sclera clear Neck: supple, no adenopathy, no bruits, normal jugular venous pulse, no hepatojugular reflux Chest: Pacemaker site is clean and dry. Lungs: clear to auscultation and percussion Cardiac Exam: - regular rate & rhythm, no murmurs gallops or rubs - normal S1, normal S2 Pulses: 2(+) throughout Abdomen: abdomen soft, non-tender, no abnormal masses and no hepatosplenomegaly Musculoskeletal: no gait disturbance, no joint inflammation, no deforming arthritis Extremities: Still has some edema of the calfs but much improved. Neuro: grossly normal exam Results & Data Vital Signs (Past 12 Hours) Vital Signs Temp Pulse Resp BP Pulse Ox 08/16/19 07:48 36.8 C 68 18 145/69 H 99 08/16/19 04:00 36.8 C 65 18 144/78 H 94 08/15/19 22:59 36.8 C 70 18 122/57 L 92 Laboratory Results Laboratory Results - last 24 hr 08/15/19 08/15/19 08/15/19 11:21 16:12 20:22 WBC RBC Hgb Hct MCV MCH MCHC RDW Std Deviation RDW Coeff of Kami Plt Count MPV Sodium Potassium Chloride Carbon Dioxide Anion Gap BUN Creatinine Est Cr Clr Drug Dosing Est GFR ( Amer) Est GFR (Non-Af Amer) BUN/Creatinine Ratio Glucose POC Glucose 104 H 115 H 129 H Calcium 08/16/19 08/16/19 08/16/19 06:08 06:08 07:41 WBC 5.23 RBC 4.44 Hgb 10.2 L Hct 35.3 L MCV 79.5 L MCH 23.0 L MCHC 28.9 L RDW Std Deviation 53.2 H RDW Coeff of Kami 18.8 H Plt Count 174 MPV 11.4 H Sodium 142 Potassium 4.2 Chloride 106 Carbon Dioxide 29 Anion Gap 7.0 BUN 32 H Creatinine 2.50 H Est Cr Clr Drug Dosing 32.6 Est GFR ( Amer) 23.9 Est GFR (Non-Af Amer) 20.6 BUN/Creatinine Ratio 12.9 Glucose 106 H POC Glucose 126 H Calcium 8.4 L Medications Administered Current Inpatient Medications Acetaminophen (Tylenol) 650 mg PO Q4H PRN PRN Reason: Pain or Fever Stop: 09/09/19 20:01 Last Admin: 08/16/19 07:55 Dose: 650 mg Documented by: Amiodarone HCl (Cordarone) 200 mg PO DAILY [facility] Stop: 09/12/19 08:59 Last Admin: 08/16/19 07:43 Dose: 200 mg Documented by: Amlodipine Besylate (Norvasc) 5 mg PO DAILY [facility] Stop: 09/10/19 08:59 Last Admin: 08/16/19 07:43 Dose: 5 mg Documented by: Amoxicillin/Clavulanate Potassium (Augmentin 500mg) 1 tab PO BIDM [facility]; Protocol Stop: 08/17/19 20:59 Last Admin: 08/16/19 07:42 Dose: 1 tab Documented by: Aspirin (Aspirin Chew) 81 mg PO DAILY [facility] Stop: 09/10/19 08:59 Last Admin: 08/16/19 07:42 Dose: 81 mg Documented by: Atorvastatin Calcium (Lipitor) 80 mg PO PM [facility] Stop: 09/09/19 20:59 Last Admin: 08/15/19 21:13 Dose: 80 mg Documented by: Clopidogrel Bisulfate (Plavix) 75 mg PO DAILY [facility] Stop: 09/10/19 08:59 Last Admin: 08/16/19 07:42 Dose: 75 mg Documented by: Dextrose (Dextrose 50%) 25 - 50 ml IV UD PRN; Protocol PRN Reason: Hypoglycemia Protocol Stop: 09/09/19 20:01 Famotidine (Pepcid) 20 mg PO DAILY PRN PRN Reason: Gi Upset Stop: 09/09/19 20:04 Ferrous Sulfate (Feosol) 325 mg PO DAILY [facility] Stop: 09/10/19 08:59 Last Admin: 08/16/19 07:42 Dose: 325 mg Documented by: Furosemide (Lasix) 80 mg PO BID17 [facility] Stop: 09/14/19 16:59 Last Admin: 08/16/19 07:43 Dose: 80 mg Documented by: Glucagon (Glucagen) 1 mg SQ UD PRN; Protocol PRN Reason: Hypoglycemia Protocol Stop: 09/09/19 20:01 Glucose (Dex4 Glucose) 4 - 8 tabs PO UD PRN; Protocol PRN Reason: Hypoglycemia Protocol Stop: 09/09/19 20:01 Glucose (Glucose 40%) 15 - 30 gm PO UD PRN; Protocol PRN Reason: Hypoglycemia Protocol Stop: 09/09/19 20:01 Heparin Sodium (Porcine) (Heparin Sodium (Porcine)) 5,000 units SQ Q8 [facility] Stop: 09/09/19 21:59 Last Admin: 08/16/19 06:21 Dose: Not Given Documented by: Insulin Aspart (Novolog Flexpen) 0 units SC ACHS [facility] Stop: 09/09/19 20:59 Last Admin: 08/16/19 07:44 Dose: 7 units Documented by: Insulin Glargine (Lantus Solostar Pen) 20 units SC QAM [facility] Stop: 09/12/19 20:59 Last Admin: 08/16/19 07:44 Dose: 20 units Documented by: Isosorbide Dinitrate (Isordil) 10 mg PO TID@0700,1200,1700 [facility] Stop: 09/09/19 20:59 Last Admin: 08/16/19 06:22 Dose: 10 mg Documented by: Levothyroxine Sodium (Synthroid) 50 mcg PO DAILYBB [facility] Stop: 09/10/19 06:29 Last Admin: 08/16/19 06:22 Dose: 50 mcg Documented by: Miscellaneous (Carbohydrates For Hypoglycemia) 15 - 30 gm PO UD PRN PRN Reason: Hypoglycemia Protocol Stop: 09/09/19 20:01 Pantoprazole Sodium (Protonix) 40 mg PO DAILYBB [facility] Stop: 09/10/19 06:29 Last Admin: 08/16/19 06:22 Dose: 40 mg Documented by: Potassium Chloride (Klor-Con M20) 20 meq PO QAM [facility] Stop: 09/11/19 11:44 Last Admin: 08/16/19 07:42 Dose: 20 meq Documented by: Vitamin D (Vitamin D3) 5,000 units PO DAILY [facility] Stop: 09/10/19 08:59 Last Admin: 08/16/19 07:42 Dose: 5,000 units Documented by: Zolpidem Tartrate (Ambien) 5 mg PO HS PRN PRN Reason: Sleep Stop: 09/13/19 18:23 Last Admin: 08/15/19 23:44 Dose: 5 mg Documented by: (1) CHF (congestive heart failure) Heart failure chronicity: acute on chronic Heart failure type: unspecified Qualified Code(s): I50.9 - Heart failure, unspecified
--- NOTE | 2019-08-29 19:38 | Operative Report (OR) ---
DATE OF OPERATION: 08/15/2019 PREOPERATIVE DIAGNOSES: Ischemic cardiomyopathy, sinus bradycardia. POSTOPERATIVE DIAGNOSES: Ischemic cardiomyopathy, sinus bradycardia. PROCEDURE: Dual chamber rate responsive implantable cardiac defibrillator under fluoroscopic guidance, peripheral venogram. SURGEON: Janie Maharaj DO. ASSISTANTS: None. ANESTHESIA: Monitored conscious sedation administered under my supervision by Prema Kincaid. Start time 9:33, end time 10:40. Total of 5 mg of Versed and 125 mcg of fentanyl. INTRAVENOUS FLUIDS: 30 mL. ANTIBIOTICS: 3 grams of Ancef. INTRAVENOUS CONTRAST: 10 mL. BLOOD LOSS: 25 mL. URINE OUTPUT: Not applicable. SPECIMENS: None. FINDINGS: See below. DRAINS: None. INDICATIONS: This is a 59-year-old female with past medical history for frequent PVCs where she was started on amiodarone in 06/2019, syncope, ischemic cardiomyopathy, ejection fraction 20%, sinus bradycardia, coronary artery disease with a history of CABG with ALEMAN to LAD, SVG to OM, and SVG to mid RCA and occluded SVG to diagonal by a cath in 2018. She did have a PCI to the mid LAD distal to the graft at that time. Also has a history of gastric bypass in 2008, diabetes, hypertension, hyperlipidemia, chronic kidney disease stage V, hypothyroidism, depression and obesity. She is wearing a LifeVest, was admitted to the hospital due to some heart failure. Was tuned up and was recommended a dual chamber implantable cardiac defibrillator prior to her discharge. CONSENT: Consent was obtained prior to the patient going into electrophysiology lab. The patient was informed of the risks, benefits and alternative procedure. Risks include but not limited to sudden cardiac , cardiac arrhythmias, cerebrovascular accident, myocardial infarction, injury to the blood vessels, chamber of the heart, lung, bleeding, and infection. The patient understood these risks and agrees to the procedure as planned. Informed consent was obtained. DESCRIPTION OF THE PROCEDURE: The patient was brought into the electrophysiology lab in a fasting state. She was connected to continuous candy starch mold printer. Timeout was performed to ensure patient identity and procedure correctly. The patient received prophylactic antibiotics prior to incision. She was prepped and draped over the left infraclavicular space in normal surgical standard fashion. Monitored conscious sedation was given throughout the procedure for patient's comfort level. [place] precautions were maintained throughout the procedure. 10 mL of 1% lidocaine-bupivacaine mixture were given in the left deltopectoral groove. Incision was made in the left deltopectoral groove. Then blunt dissection was performed to try to identify cephalic vein, but I could not identify one, so a peripheral venogram was performed to identify the axillary vein and then venous axillary access was obtained that was adequate. Then, axillary access was obtained through a needlestick. A guidewire was inserted without any resistance. An 8-Macanese sheath was inserted over the guidewire without any resistance. Second guidewire was inserted through the 8-Macanese sheath to allow for retained venous access. A 9.5-Macanese sheath was inserted over one of the guidewires without any resistance. Guidewire and dilator were removed. The right ventricular defibrillator lead was advanced into the right ventricle, positioned in the right ventricular apex under fluoroscopic guidance. There was adequate pacing and sensing thresholds and no diaphragmatic stimulation with high output pacing. The 9.5-Macanese sheath was peeled away and the lead was fixated to pectoralis muscle using 0 silk suture. An 8-Macanese sheath was then inserted over the retained guidewire without any resistance. Guidewire and dilator removed. The right atrial lead was advanced into right atrium and positioned in the right atrial appendage under fluoroscopic guidance. There was adequate pacing and sensing thresholds and no diaphragmatic stimulation with high output pacing. The 8-Macanese sheath was peeled away and lead was fixated to pectoralis muscle using 0 silk suture. A defibrillator pocket was created using blunt dissection over the pectoralis muscle within the pectoral fascia. The pocket was flushed with copious amounts of bacitracin saline wash and inspected for hemostasis. The defibrillator was attached to the leads making sure the pins were in appropriate position, passed set screws and set screws were all tightened. The defibrillator was then placed in the pocket, making sure that the leads were lying flat beneath the device. The incision was closed in a 3-layer fashion with 2-0 Vicryl interrupted suture followed by 3-0 Vicryl interrupted suture, followed by a 4-0 Monocryl running stitch and Dermabond was applied followed by Telfa and micropore dressing. EQUIPMENT: 1. The pulse generator is a Oris4a MRI XT DR William [id number], serial number [id number]. 2. Right atrial lead Medtronic 5076-52 cm, serial number [id number]. 3. Right ventricular lead, Medtronic 6935M-62 cm, serial number [id number]. INTRAOPERATIVE TESTIN. Right atrial lead: P waves 0.8 millivolts, impedance 796 ohms, threshold 1.3 volts at 0.4 milliseconds. 2. Right ventricular lead: R waves 8.2 millivolts, impedance 712 ohms, threshold 0.6 volts at 0.4 milliseconds. FINAL MEASUREMENTS THROUGH THE DEVICE: 1. Right atrial lead: P waves 0.6 millivolts, impedance 494 ohms, threshold 1.25 volts at 0.4 milliseconds. 2. Right ventricular lead: R waves 10.1 millivolts, impedance 532 ohms, threshold 0.75 volts at 0.4 milliseconds. FINAL PARAMETERS: MVP-R 60/130, right atrial amplitude 3.5 volts, pulse width 0.4 milliseconds, sensitivity 0.15 millivolts. Right ventricular amplitude 3.5 volts, pulse width 0.4 milliseconds, sensitivity 0.3 millivolts. VT monitor zone at 140 beats per minute for 32 detection intervals. VT zone 167 beats per minute for 16 detection intervals, and VF zone at 200 beats per minute for 30/40 detection intervals. IMPRESSION: Successful implantation of a dual chamber rate responsive implantable cardiac defibrillator secondary to ischemic cardiomyopathy and sinus bradycardia under fluoroscopic guidance along with peripheral venogram. PLAN: Monitor the patient overnight, 12-lead ECG, chest x-ray. She is not allowed to lift left elbow or left shoulder for 1 month. She cannot lift more than 10 pounds with the left arm for 2 weeks. She is to keep the dressing on and dry until her wound check next week to go over in [facility]. I attest to the content of the Intraoperative Record and any orders documented therein. Any exception s are noted below.
== END 2019-08-16 13:03 | disposition home or self-care (01) | DRG 226 ==
LOC: ED 14:14 → SUATTDRO 16:08 → 1E 16:08 → 2S 08-11 19:02
PROC: EPB.ICD (2019-08-15 09:00)

== ENCOUNTER 2019-09-29 17:03 | Inpatient (IN) ==
--- NOTE | 2019-09-29 17:13 | Emergency Department Note ---
Impression & Plan CHF (congestive heart failure), AICD discharge, Nausea, CKD (chronic kidney disease), Hyperphosphatemia, Hypermagnesemia ED Provider Note NAME: WAYNE GONZALEZ AGE: 59 SEX: F : 1960 ARRIVES VIA: Walk-In INFORMANT: Patient, ED PROVIDER(S): Levar Olmstead MD Chief Complaint: Defibrillator firing HPI: Patient states that she did have an episode where she felt her defibrillator firing approximate 3:50. The patient had spoken with Dr. Blakely who referred here for further evaluation treatment. The patient was recently seen on Tuesday by her primary management liaison Dr. Olvera along with the [employer] rep. The patient was also started on Mexitil and metolazone by Dr. Cardoso who placed her AICD approximately 1-1/2 months before. The patient has complained of some mild nausea throughout the day. The patient states that post shop she did feel improved but does not feel quite right. The patient currently denies any active chest pains or shortness of breath. Patient states she recently had admission at [facility] in [place] where she did have a pericardial effusion which was subsequently drained. Patient states that since Tuesday the patient is gained approximately 4 pounds. Patient denies any positional or exertional symptoms currently. Patient states she has been compliant with her medications. ROS: See HPI for pertinent positives and negatives. A total of 10 systems were reviewed and otherwise negative. Past medical history: See below Surgical history: See below Social history: See below Physical Exam: GENERAL: Wearing a mask. NAD, non-toxic. EYE EXAM: Normal conjunctiva. PERRL, no anisocoria and EOM's grossly intact w/o pain. NECK: Supple, no nuchal rigidity, no adenopathy, non-tender. No signs of meningismus. Chest: Device to left chest. Well-healed midline sternotomy scar noted. LUNGS: Slightly decreased bilateral bases. Normal chest wall mechanics. HEART: Regular, no MRG. ABDOMEN: Abdomen soft, non-tender, normo-active bowel sounds, no masses, no rebound or guarding. BACK: No CVA TTP. SKIN: No rashes and no bruising. UPPER EXTREMITIES: Upper extremities are grossly normal. LOWER EXTREMITIES: Grossly normal, trace pretibial edema without calf pain or redness. Mild stasis changes to the bilateral lower extremities noted. NEURO EXAM: A&O x3, cranial nerves II-XII grossly intact, normal speech, moves all 4 extremities on command w/o issue. Differential diagnoses: Cardiac ischemia, aortic dissection, pulmonary embolism, pneumothorax, pneumonia, pericarditis, myocarditis, esophageal rupture, GERD, cholecystitis, pancreatitis, musculoskeletal, as well as other pathologies. Course: Patient was seen and evaluated the bedside. Full history physical exam was performed. EKG: Indication: Nausea and defibrillator firing A paced rhythm with rate of 82, prolonged TX normal QRS and QT, Q waves anteriorly with T wave inversions and mild depressions in the high lateral leads. These appear to be old from prior EKG September 18, 2019. Imaging Studies: Radiology results as stated below per my review in the radiologist's interpretation: XR chest 1V portable CLINICAL HISTORY: Chest Pain dyspnea COMPARISON STUDY: 09/18/2019 FINDINGS: Moderate cardiomegaly prior median sternotomy. Cardiac pacemaker in good position. Small right effusion slightly increased in volume from the prior study. Moderate prominence of pulmonary vasculature. IMPRESSION: Congestive heart failure. Small right pleural effusion. ACT 112: Negative or not required by law. The above report was generated using voice recognition software. It may contain grammatical, syntax or spelling errors. Electronically signed by: Jose Manuel Schultz M.D. 09/29/2019 5:27 PM Dictated: 09/29/191725 Transcribed: 09/29/191725 Cardiac monitoring: An order was placed for continuous cardiac monitoring. The monitor shows a rate of 81 with paced rhythm. Procedures: Limited Point of Care Cardiac Ultrasound performed by me: Indication: Nausea, history of CHF Findings: Limited echocardiography revealed no obvious pericardial fluid. Wall motion appeared decreased with depressed EF. Plethoric IVC with only mild respiratory variability. HR 80s. MDM: Patient does present with concern for defibrillator firing. Blood work was obtained. [id number] ultrasound was also completed. Patient's defibrillator was also interrogated at the bedside. Patient does not complain of any active chest pains or shortness of breath. Limited [id number] ultrasound shows depressed EF but no obvious pericardial effusion with mildly plethoric IVC with some mild respiratory variability. I did speak with the on-call [employer] rep who stated that the patient did have multiple episodes nonsustained VT and then had several sustained episodes of VT. There were 3 total which to which were terminated with overdrive pacing but the third was unable to be terminated so a shock was delivered. The patient only complains of some mild nausea at this time. Patient does have CKD which is relatively unchanged from before. Patient's prior was in the threes today it is 4. The patient does have some very mild hyperphosphatemia and hypermagnesemia. Troponin is detectable but not elevated. Chronic anemia which is unchanged with normal white count and platelet count. I did speak with the on-call management liaison Dr. Blakely who agreed with a dose of Lasix and admission for observation and treatment. I did speak the on-call hospitalist who agreed to further evaluate treat the patient. Patient was admitted to [facility] medicine service under Dr. Townsend. Past Med/Surg History Medical History CAD (coronary artery disease) Chronic diastolic (congestive) heart failure CKD (chronic kidney disease), stage IV Dyslipidemia (Acute) Frequent PVCs (Acute) HTN (hypertension) Hypothyroidism Major depressive disorder (Acute) Obesity (Acute) DONALD (obstructive sleep apnea) (Acute) Type 2 diabetes mellitus (Acute) Surgical History History of gastric bypass (Acute ~2008) Donn En Y Hx of CABG (Acute ~2004) "CABG, PCI, and stent to the mid RCA in Mar 2004" Status post coronary artery stent placement (Acute ~12/18/18) [id number] Resolute Fernando stent to LAD distal to ALEMAN-LAD graft touchdown. 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 Other Information That Helps Us Care for You: No Feels Safe at Home: Yes Safety Concerns: Feels Safe At This Time Allergies Allergies Allergy/AdvReac Type Severity Reaction Status Date / Time escitalopram [From Lexapro] AdvReac Severe NAUSEA/VOMI Verified 09/18/19 15:27 TING lisinopril AdvReac Severe Diarrhea Verified 09/29/19 19:03 amiodarone AdvReac BODY Unverified 09/29/19 19:20 ACHES/BACK PAIN Home Meds Home Medications Medication Instructions Recorded Confirmed Lantus U-100 Insulin 27 unit SUBCUT QAM 04/29/19 09/29/19 aspirin [Aspirin Childrens] 81 mg PO DAILY 04/29/19 09/29/19 atorvastatin 80 mg PO PM 04/29/19 09/29/19 clopidogrel [Plavix] 75 mg PO DAILY 04/29/19 09/29/19 famotidine [Pepcid] 20 mg PO DAILY PRN 04/29/19 09/29/19 isosorbide dinitrate 10 mg PO TID 04/29/19 09/29/19 levothyroxine 50 mcg PO DAILYBB 04/29/19 09/29/19 nitroglycerin [Nitrostat] 0.4 mg SUBLINGUAL DIRECTED PRN 04/29/19 09/29/19 pantoprazole [Protonix] 40 mg PO DAILYBB 04/29/19 09/29/19 amiodarone 200 mg PO TID 08/10/19 09/29/19 cholecalciferol (vitamin D3) 125 mcg PO DAILY 08/10/19 09/29/19 acetaminophen [Tylenol Extra 1,000 mg PO Q6H PRN 09/18/19 09/29/19 Strength] metoprolol succinate [Toprol XL] 25 mg PO HS 09/18/19 09/29/19 biotin 1,000 mcg PO DAILY 09/29/19 09/29/19 hydralazine 25 mg PO TID 09/29/19 09/29/19 iron,carbonyl-vitamin C [Vitron-C] 1 tab PO DAILY 09/29/19 09/29/19 metolazone 5 mg PO DAILY 09/29/19 09/29/19 mexiletine 150 mg PO TID 09/29/19 09/29/19 torsemide 80 mg PO BID 09/29/19 09/29/19 Previous Rx's Medication Instructions Recorded potassium chloride [Klor-Con M20] 20 meq PO QAM #30 tab 08/16/19 Results & Data (ED) Vital Signs Vital Signs - 24 hr 09/29/19 17:04 09/29/19 17:05 09/29/19 17:16 Temperature 36.8 C Temperature Source Oral Oral Pulse Rate 81 82 Pulse Rate from SpO2 Sensor Respiratory Rate 18 Blood Pressure 146/85 H Blood Pressure Mean 105 Pulse Oximetry 94 92 Oxygen Delivery Method Room Air Room Air Oxygen Flow Rate Sepsis Recent Fever Within 48 Hours No Sepsis New/Unexplained Change in Mental Status No Sepsis Action Taken by Nursing No Action Required Oxygen Flow Rate - Titration Pulse Oximetry Post Tiitration 09/29/19 17:27 09/29/19 17:30 09/29/19 17:32 Temperature Temperature Source Pulse Rate 80 80 80 Pulse Rate from SpO2 Sensor 77 80 80 Respiratory Rate Blood Pressure 140/88 146/78 H Blood Pressure Mean 107 105 Pulse Oximetry 94 96 95 Oxygen Delivery Method Oxygen Flow Rate Sepsis Recent Fever Within 48 Hours Sepsis New/Unexplained Change in Mental Status Sepsis Action Taken by Nursing Oxygen Flow Rate - Titration Pulse Oximetry Post Tiitration 09/29/19 17:45 09/29/19 18:01 09/29/19 18:16 Temperature Temperature Source Pulse Rate 80 80 80 Pulse Rate from SpO2 Sensor 77 79 78 Respiratory Rate Blood Pressure 145/88 H 141/82 H 130/69 Blood Pressure Mean 124 117 104 Pulse Oximetry 96 93 90 Oxygen Delivery Method Oxygen Flow Rate Sepsis Recent Fever Within 48 Hours Sepsis New/Unexplained Change in Mental Status Sepsis Action Taken by Nursing Oxygen Flow Rate - Titration Pulse Oximetry Post Tiitration 09/29/19 18:30 09/29/19 18:31 09/29/19 18:41 Temperature Temperature Source Pulse Rate 80 83 Pulse Rate from SpO2 Sensor 80 76 Respiratory Rate Blood Pressure 131/76 Blood Pressure Mean 95 Pulse Oximetry 91 90 89 L Oxygen Delivery Method Nasal Cannula Oxygen Flow Rate 0 Sepsis Recent Fever Within 48 Hours Sepsis New/Unexplained Change in Mental Status Sepsis Action Taken by Nursing Oxygen Flow Rate - Titration 2 Pulse Oximetry Post Tiitration 90 09/29/19 18:44 09/29/19 18:45 Temperature Temperature Source Pulse Rate 78 Pulse Rate from SpO2 Sensor 78 Respiratory Rate Blood Pressure 130/73 Blood Pressure Mean 96 Pulse Oximetry 96 94 Oxygen Delivery Method Nasal Cannula Oxygen Flow Rate 2 Sepsis Recent Fever Within 48 Hours Sepsis New/Unexplained Change in Mental Status Sepsis Action Taken by Nursing Oxygen Flow Rate - Titration Pulse Oximetry Post Tiitration Home Medications Current Medication List: was personally reviewed by me Laboratory Data Attestation: I reviewed the patient's lab results. Result diagrams: 09/29/19 17:25 09/29/19 17:25 Lab Results 09/29/19 09/29/19 09/29/19 Range/Units 17:25 17:25 17:25 WBC 7.68 (4.8-10.8) K/uL RBC 4.29 (4.2-5.4) M/uL Hgb 10.6 L (12.0-16.0) g/dL Hct 34.0 L (37-47) % MCV 79.3 L (80-100) fL MCH 24.7 L (25-34) pg MCHC 31.2 L (32-36) g/dL RDW Std Deviation 59.1 H (36.4-46.3) fL RDW Coeff of Kami 20.6 H (11.5-14.5) % Plt Count 224 (130-400) K/uL MPV 11.4 H (7.4-10.4) fL Immature Gran % (Auto) 0.3 % Neut % (Auto) 77.2 % Lymph % (Auto) 14.5 % Mcintosh % (Auto) 6.5 % Eos % (Auto) 1.4 % Baso % (Auto) 0.1 % Neut # (Auto) 5.93 (1.4-6.5) K/uL Lymph # (Auto) 1.11 L (1.2-3.4) K/uL Mcintosh # (Auto) 0.50 (0.11-0.59) K/uL Eos # (Auto) 0.11 (0-0.5) K/uL Baso # (Auto) 0.01 (0-0.2) K/uL Immature Gran # (Auto) 0.02 (0.00-0.02) K/uL Anisocytosis Present Ovalocytes 1+ Acanthocytes (Spur) 1+ PT 11.4 (9.0-12.0) Seconds INR 1.1 (0.9-1.1) APTT 25.9 (21.0-31.0) Seconds PTT Ratio 0.9 Sodium 135 L (136-145) mmol/L Potassium 3.7 (3.5-5.1) mmol/L Chloride 101 (98-107) mmol/L Carbon Dioxide 24 (21-32) mmol/L Anion Gap 10.0 (3-11) BUN 60 H (7-18) mg/dl Creatinine 4.03 H (0.6-1.2) mg/dl Est Cr Clr Drug Dosing Not Reportable Est GFR ( Amer) 13.4 Est GFR (Non-Af Amer) 11.6 BUN/Creatinine Ratio 14.9 (10-20) Glucose 156 H (70-99) mg/dl Calcium 8.9 (8.5-10.1) mg/dl Phosphorus 5.3 H (2.5-4.9) mg/dl Magnesium 2.8 H (1.8-2.4) mg/dl Total Bilirubin 1.0 (0.2-1) mg/dl AST 13 L (15-37) U/L ALT 18 (12-78) U/L Alkaline Phosphatase 97 (45-117) U/L Total Creatine Kinase 64 (26-192) U/L Troponin I 0.024 (0-0.045) ng/ml Total Protein 7.2 (6.4-8.2) gm/dl Albumin 3.8 (3.4-5.0) gm/dl Globulin 3.4 (2.5-4.0) gm/dl Albumin/Globulin Ratio 1.1 (0.9-2) Lipase 265 (73-393) U/L Administered Medications Discontinued Medications Furosemide (Lasix) 40 mg IV NOW STA Stop: 09/29/19 18:12 Last Admin: 09/29/19 18:35 Dose: 40 mg Documented by: [id number] Discharge Plan Visit Data *Final* Discharge Date/Time: 09/29/19 19:30 Chief Complaint: Cardiac Assessment Stated Complaint: DIFIBRILLATOR WENT OFF ED Provider: Levar Olmstead Discharge Problem: CHF (congestive heart failure), AICD discharge, Nausea, CKD (chronic kidney disease), Hyperphosphatemia, Hypermagnesemia Patient Disposition: Admitted As Inpatient Discharge Instructions Interventions: ED Discharge Assessment Last Done: 09/29/19 19:30 Discharge Problem: CHF (congestive heart failure) Qualifiers: Heart failure type: systolic Heart failure chronicity: acute on chronic Qualified Code(s): I50.23 - Acute on chronic systolic (congestive) heart failure CKD (chronic kidney disease) Qualifiers: Chronic kidney disease stage: unspecified stage Qualified Code(s): N18.9 - Chronic kidney disease, unspecified
--- NOTE | 2019-09-29 17:28 | XRay Report ---
XR chest 1V portable CLINICAL HISTORY: Chest Pain dyspnea COMPARISON STUDY: 09/18/2019 FINDINGS: Moderate cardiomegaly prior median sternotomy. Cardiac pacemaker in good position. Small right effusion slightly increased in volume from the prior study. Moderate prominence of pulmon kris vasculature. IMPRESSION: Congestive heart failure. Small right pleural effusion. ACT 112: Negative or not required by law. The above report was generated using voice recognition software. It may contain grammatical, syntax or spelling errors. Electronically signed by: Jose Manuel Schultz M.D. 09/29/2019 5:27 PM
[2019-09-29 17:36] LABS: Basophils # (auto) 0.01 K/uL (0-0.2); Basophils % (auto) 0.1 %; Eosinophils # (auto) 0.11 K/uL (0-0.5); Eosinophils % (auto) 1.4 %; Hemoglobin 10.6 g/dL (12.0-16.0); Immature Granulocytes # (auto) 0.02 K/uL (0.00-0.02); Immature Granulocytes % (auto) 0.3 %; Lymphocytes # (auto) 1.11 K/uL (1.2-3.4); Lymphocytes % (auto) 14.5 %; Mean Corpuscular Hemoglobin 24.7 pg (25-34); Mean Corpuscular Hgb Conc 31.2 g/dL (32-36); Mean Corpuscular Volume 79.3 fL (80-100); Mean Platelet Volume 11.4 fL (7.4-10.4); Monocytes % (auto) 6.5 %; Neutrophils # (auto) 5.93 K/uL (1.4-6.5); Neutrophils % (auto) 77.2 %; Platelet Count 224 K/uL (130-400); RDW Coefficient of Variation 20.6 % (11.5-14.5); RDW Standard Deviation 59.1 fL (36.4-46.3); Red Blood Count 4.29 M/uL (4.2-5.4); White Blood Count 7.68 K/uL (4.8-10.8)
[2019-09-29 17:49] LABS: INR 1.1 (0.9-1.1); Partial Thromboplastin Ratio 0.9; Partial Thromboplastin Time 25.9 Seconds (21.0-31.0); Prothrombin Time 11.4 Seconds (9.0-12.0)
[2019-09-29 17:53] LABS: Alanine Aminotransferase 18 U/L (12-78); Albumin Level 3.8 gm/dl (3.4-5.0); Aspartate Aminotransferase 13 U/L (15-37); BUN Creatinine Ratio 14.9 (10-20); Blood Urea Nitrogen 60 mg/dl (7-18); Calcium 8.9 mg/dl (8.5-10.1); Carbon Dioxide 24 mmol/L (21-32); Chloride 101 mmol/L (98-107); Est GFR (African American) 13.4; Est GFR (Non-African American) 11.6; Glucose 156 mg/dl (70-99); Lipase 265 U/L (73-393); Magnesium 2.8 mg/dl (1.8-2.4); Potassium 3.7 mmol/L (3.5-5.1); Sodium 135 mmol/L (136-145)
[2019-09-29 17:56] LABS: Albumin Globulin Ratio 1.1 (0.9-2); Alkaline Phosphatase 97 U/L (45-117); Creatine Kinase 64 U/L (26-192); Globulin 3.4 gm/dl (2.5-4.0); Phosphorus 5.3 mg/dl (2.5-4.9); Total Protein 7.2 gm/dl (6.4-8.2); Troponin I 0.024 ng/ml (0-0.045)
[2019-09-29 18:00] LABS: Acanthocytes 1+; Anisocytosis Present; Ovalocytes 1+
[2019-09-29] MEDS ORDERED: FUROSEMIDE 40 MG/4 ML VIAL IV STA (18:11)
[2019-09-29] MEDS ORDERED: NITROGLYCERIN SL 0.4 MG/TAB TAB SL PRN (18:57)
[2019-09-29] MEDS ORDERED: POLYETHYLENE (MIRALAX) 17 GM PACK PO PRN (18:57)
[2019-09-29] MEDS ORDERED: MAGNESIUM HYDROXIDE SUSP 30 ML UDC PO PRN (18:57)
[2019-09-29] MEDS ORDERED: ACETAMINOPHEN 325 MG TAB PO PRN (18:57)
[2019-09-29] MEDS ORDERED: ALUMINUM/MAGNESIUM SUSP 30 ML UDC PO PRN (18:57)
--- NOTE | 2019-09-29 19:04 | History & Physical Report ---
Date of Service September 29, 2019 Assessment & Plan (1) AICD discharge: SEVERE ISCHEMIC CARDIOMYOPATHY : EF 25 % , with severe cardiomyopathy presents with sustained vtach and recurrent AICD firing appreciate input from Cardiology pt is transferred to ICU started on IV amiodarone gtt continued to have sustained monomorphic Vtach , requiring multiple AICD firing intubated emergently for airways protection accepted by Cardiology /cardiac ICU in [place] life flighted to [facility] COMBINED SYSTOLIC /DIASTOLIC FAILURE : severe ischemic cardiomyopathy with biventricular failure EF 25 % presented with sustained vtach /AICD firing transferred to ICU /Cardiology [place] all diuretics on hold as pt became hypotensive during episodes of AICD firing /sustaned Vtach ACUTE RENAL FAILURE ON CKD STAGE 4 cardiorenal syndrome baseline cr ~3-3.5 admitted with elevated Cr 4 possible due to diuresis vs hypotensive episodes with sustained vtach over all prognosis remains guarded FULL CODE DVT PROPHYLAXIS : sub q heparin DISPOSITION : pt is transferred to [facility] for definitive cardiac intervention /ablation therapy History of Present Illness Chief Complaint: chest pain /AICD firing Primary Care Provider: Laxmi Olvera DO This is a 59 yo F with complicated past medical hx of severe ischemic cardio myopathy , EF 25 % s/p AICD placement on 09/14/19 , CKD stage 4 , combined systolic and diastolic heart failure , was recently at ER [facility] on 09/18/19 with AICD firing was sent to [facility] pt had right sided cardiac in [facility] , showed elevated left atrial pressures and pulmonary hypertension. Treated with intravenous Lasix infusion with significant diuresis -15 lb weight loss over a 72 hour period. Transitioned to oral torsemide prior to discharge. Amiodarone dose was titrated to 200 mg TID , Discharged from [facility] Electrophysiology suggested medical management. pt continued to experience AICD firing , was seen at Cardiology office with Dr Gibson on 09/27/19 ICD interrogation demonstrates episode of nonsustained ventricular tachycardia that did not require shock therapy. ICD interrogation: VF 08/29/2019 s/p successful defibrillation with 36.2 joules this afternoon she felt lightheaded /passed out , received AICD firing / spoke with electrician substation Cardiology Dr Blakely was asked to come to ER pt continued to have sustained vtach in ER and on arrival to floor was started on IV amiodarone gtt was seen by Cardiology at bedside pt transferred to ICU plan is to transfer to [facility] for Cardiac ablation accepting physician Dr Martel cardiology in ICU pt continues to receive AICD firing , became unresponsive later hypotensive and hypoxic emergently intubated later after pt is stablized transferred via life flight to [facility] . [place] Allergies Allergy/AdvReac Type Severity Reaction Status Date / Time escitalopram [From Lexapro] AdvReac Severe NAUSEA/VOMI Verified 09/18/19 15:27 TING lisinopril AdvReac Severe Diarrhea Verified 09/29/19 19:03 amiodarone AdvReac BODY Unverified 09/29/19 19:20 ACHES/BACK PAIN Home Medications Home Medications Medication Instructions Recorded Confirmed Type Lantus U-100 Insulin 27 unit SUBCUT QAM 04/29/19 09/29/19 History aspirin [Aspirin Childrens] 81 mg PO DAILY 04/29/19 09/29/19 History atorvastatin 80 mg PO PM 04/29/19 09/29/19 History clopidogrel [Plavix] 75 mg PO DAILY 04/29/19 09/29/19 History famotidine [Pepcid] 20 mg PO DAILY PRN 04/29/19 09/29/19 History isosorbide dinitrate 10 mg PO TID 04/29/19 09/29/19 History levothyroxine 50 mcg PO DAILYBB 04/29/19 09/29/19 History nitroglycerin [Nitrostat] 0.4 mg SUBLINGUAL DIRECTED PRN 04/29/19 09/29/19 History pantoprazole [Protonix] 40 mg PO DAILYBB 04/29/19 09/29/19 History amiodarone 200 mg PO TID 08/10/19 09/29/19 History cholecalciferol (vitamin D3) 125 mcg PO DAILY 08/10/19 09/29/19 History potassium chloride [Klor-Con M20] 20 meq PO QAM #30 tab 08/16/19 09/29/19 Rx acetaminophen [Tylenol Extra 1,000 mg PO Q6H PRN 09/18/19 09/29/19 History Strength] metoprolol succinate [Toprol XL] 25 mg PO HS 09/18/19 09/29/19 History biotin 1,000 mcg PO DAILY 09/29/19 09/29/19 History hydralazine 25 mg PO TID 09/29/19 09/29/19 History iron,carbonyl-vitamin C [Vitron-C] 1 tab PO DAILY 09/29/19 09/29/19 History metolazone 5 mg PO DAILY 09/29/19 09/29/19 History mexiletine 150 mg PO TID 09/29/19 09/29/19 History torsemide 80 mg PO BID 09/29/19 09/29/19 History Past Med/Surg History Medical History CAD (coronary artery disease) Chronic diastolic (congestive) heart failure CKD (chronic kidney disease), stage IV Dyslipidemia (Acute) Frequent PVCs (Acute) HTN (hypertension) Hypothyroidism Major depressive disorder (Acute) Obesity (Acute) DONALD (obstructive sleep apnea) (Acute) Type 2 diabetes mellitus (Acute) Surgical History History of gastric bypass (Acute ~2008) Donn En Y Hx of CABG (Acute ~2004) "CABG, PCI, and stent to the mid RCA in Mar 2004" Status post coronary artery stent placement (Acute ~12/18/18) [id number] Resolute [place] stent to LAD distal to ALEMAN-LAD graft touchdown. 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 Other Information That Helps Us Care for You: No Feels Safe at Home: Yes Safety Concerns: Feels Safe At This Time Review of Systems Review of Systems: All systems reviewed & are unremarkable except as noted in HPI & below information obtained while on floor prior to pt became unresponsive and required intubation Respiratory: + dyspnea on exertion Cardiovascular: + chest pain, + dyspnea, + dyspnea at rest, + dyspnea on exertion, + orthopnea, + palpitations, + lightheadedness, + syncope and + problem reported Additional Comments: AICD firing Gastrointestinal: + nausea; no abdominal pain and no vomiting Neurologic: + dizziness and + syncope Physical Exam Constitutional: WD/WN, vitals as above + ill appearing very worn out after AICD firing Eyes: + anicteric sclerae ENMT: external ear and nose normal, oropharynx normal Neck: trachea midline, no thyromegaly Respiratory: + cough; no respiratory distress and no labored breathing Auscultation: + rales; no wheezes Cardiovascular: Rate/Rhythm: regular rate and regular rhythm Extremities: + edema Gastrointestinal (Abdomen): Percussion/Palpation: abdomen soft; abdomen nontender Musculoskeletal: no cyanosis or clubbing, extremities motor strength 5/5 Skin: no rashes, warm and dry Neurologic: PERRL, EOMI, accommodation nl, no face palsy, no dysarthria Psychiatric: Orientation: alert and oriented x 3 Mood: + anxious mood Results & Data Results & Data ([facility]) Vital Signs (Past 12 Hours) Vital Signs Temp Pulse Resp BP Pulse Ox 09/29/19 18:44 96 09/29/19 18:41 89 L 09/29/19 18:31 83 90 09/29/19 18:30 80 131/76 91 09/29/19 18:16 80 130/69 90 09/29/19 18:01 80 141/82 H 93 09/29/19 17:45 80 145/88 H 96 09/29/19 17:32 80 95 09/29/19 17:30 80 146/78 H 96 09/29/19 17:27 80 140/88 94 09/29/19 17:16 82 09/29/19 17:05 36.8 C 81 18 146/85 H 92 09/29/19 17:04 94 Code Status & VTE Plan VTE Prophylaxis Plan VTE Prophylaxis will be ordered: Yes
[2019-09-29] MEDS ORDERED: ACETAMINOPHEN 500 MG TAB PO PRN (20:00)
[2019-09-29] MEDS ORDERED: GLUCOSE 10 TABS/TUBE PO PRN (20:15)
[2019-09-29] MEDS ORDERED: GLUCAGON FOR INJ 1 MG VIAL IM PRN (20:15)
[2019-09-29] MEDS ORDERED: GLUCOSE 40% GEL 15 GM TUBE PO PRN (20:15)
[2019-09-29] MEDS ORDERED: DEXTROSE 50% 50 ML SYRINGE IV PRN (20:15)
[2019-09-29] MEDS ORDERED: CARBOHYDRATES FOR HYPOGLYCEMIA PO PRN (20:15)
[2019-09-29 20:23] VITALS: TEMP 97.5
[2019-09-29] MEDS ORDERED: 0.2 MICRON FILTER SET 1 EA IV ONE ×2 (20:57→21:19)
[2019-09-29] MEDS ORDERED: STAT IV Infusion **Titration per Protocol STA ×4 (20:57→22:20)
[2019-09-29] MEDS ORDERED: AMIODARONE / D5W 360 MG/200 ML BAG IV ONE ×2 (20:57→21:19)
[2019-09-29] MEDS ORDERED: AMIODARONE IV BOLUS & DRIP IV STA ×2 (20:57→21:19)
[2019-09-29] MEDS ORDERED: AMIODARONE / D5W 150 MG/100 ML BAG IV STA ×2 (20:57→21:19)
[2019-09-29] MEDS ORDERED: PHARMACY GLYCEMIC MGMT CONSULT PRN (20:59)
[2019-09-29] MEDS ORDERED: METOPROLOL SUCC 25MG EXT REL TAB PO SCH (21:00)
[2019-09-29] MEDS ORDERED: AMIODARONE 200 MG TAB PO SCH (21:00)
[2019-09-29] MEDS ORDERED: ATORVASTATIN 40 MG TAB PO SCH (21:00)
[2019-09-29] MEDS ORDERED: FUROSEMIDE 80 MG TAB PO SCH (21:00)
[2019-09-29] MEDS ORDERED: MEXILETINE HCL 150 MG CAPSULE PO SCH (21:00)
[2019-09-29] MEDS ORDERED: AMIODARONE 360MG / 200ML D5W IV ONE (21:19)
[2019-09-29] MEDS ORDERED: AMIODARONE 150MG / 100ML D5W IV ONE (21:19)
[2019-09-29] MEDS ORDERED: METOPROLOL TARTRATE 1 MG/ML VIAL IV ONE (21:31)
[2019-09-29] MEDS ORDERED: RAPID SEQUENCE INDUCTION BAG ONE (21:37)
--- NOTE | 2019-09-29 21:41 | Pharmacy Report ---
Pharmacy Glycemic Short Note 2 - Date of Service September 29, 2019 - Glycemic Short BSG Results (Last 24 hours): 09/29/19 17:25 Glucose 156 H Laboratory Tests 07/04/19 22:40 Hemoglobin A1c 7.6 H OUTPATIENT ANTIDIABETIC REGIMEN: * Lantus 27 units sq daily ASSESSMENT: * Pt with CKD-4, gastric bypass PLAN FOR INPATIENT GLYCEMIC CONTROL: * Basal insulin * Lantus--currently on hold, will reassess 8/8/AM * Bolus insulin * NovoLog per scale ACHS or Q6hrs while NPO * Goal Range: Low 140 mg/dL - High 180 mg/dL * Correction Factor: 20 mg/dL/unit * Nutritional / Prandial insulin per carb ratio of 1 unit per 7 grams CHO consumed
[2019-09-29] MEDS ORDERED: ROCURONIUM BROMIDE 10 MG/ML 5 ML VIAL IV ONE ×2 (21:42→23:05)
[2019-09-29] MEDS ORDERED: NOREPINEPHRINE (Adult STAT Only) 4 MG in D5W 250 ML IV ONE (21:45)
[2019-09-29 21:53] LABS: BUN Creatinine Ratio 15.4 (10-20); Calcium 8.7 mg/dl (8.5-10.1); Creatinine Clr Calc Pharmacy 20.4 ml/min; Est GFR (African American) 14.1; Est GFR (Non-African American) 12.2; Magnesium 2.6 mg/dl (1.8-2.4); Potassium 3.2 mmol/L (3.5-5.1)
[2019-09-29 21:54] LABS: Phosphorus 5.5 mg/dl (2.5-4.9)
[2019-09-29 22:02] VITALS: O2SAT 94
--- NOTE | 2019-09-29 22:14 | Emergency Department Note ---
ED Visit Note I did present to the patient's room in the intensive care unit as the patient was having persistent ventricular tachycardia necessitating the placement of an endotracheal tube 2/2 to [facility]. There was discussion that the patient would likely require an ablation at a receiving hospital as the patient was having persistent V. tach not amenable to antiarrhythmics. Given the concern for the patient's labile blood pressures as well as precipitating further ventricular tachycardia and possible hypotension, the patient was optimized by IVF, NC and BVM O2, levo gtt and lower doses of sedation and induction agent. Patient was subsequently intubated without complication. Stat chest x-ray was obtained and the ET tube appears in place below the clav icles and above the bijan without any obvious pneumothorax. I suggested ordering fentanyl for sedation. Patient was also being managed at the bedside by Dr. Blakely of cardiology and Dr. Townsend of internal medicine. Please see their notes for any additional care provided. The patient was pending helicopter transport to [facility]. Procedures: Endotracheal Intubation Indication: Unstable Vtach, alterred mental status The patient was on 100% oxygen via NRB prior to the procedure. Suction, airway equipment, RSI drugs, respiratory equipment, and appropriate personnel were prepared prior to the initiation of the procedure. A time out was taken. Induction was performed with fentanyl and rocuronium. After observing the clinical benefit of the medications, the airway was easily visualized utilizing a 4 MAC glidescope. A 7.5 size ETT tube was placed atraumatically to 24 cm using standard technique. The cuff inflated without signs of malfunction. There were bilateral breath sounds, positive colormetric change, no gastric sounds, a good capnography waveform, and post procedure pulse oximetry was 98%. There were no complications. Imagin view chest x-ray Impression: ET tube in place without obvious pneumothorax : CHF (congestive heart failure) Qualifiers: Heart failure type: systolic Heart failure chronicity: acute on chronic Qualified Code(s): I50.23 - Acute on chronic systolic (congestive) heart failure CKD (chronic kidney disease) Qualifiers: Chronic kidney disease stage: unspecified stage Qualified Code(s): N18.9 - Chronic kidney disease, unspecified
[2019-09-29] MEDS ORDERED: fentaNYL DRIP 1,250 MCG/250 ML BAG IV PRN (22:19)
[2019-09-29] MEDS ORDERED: FENTANYL BOLUS FROM BAG IV PRN (22:19)
--- NOTE | 2019-09-29 22:21 | Procedure Note ---
Procedure Note Date of Service September 29, 2019 Procedure: Femoral Central Line Placement Attending: Dr. Zhang APC: Dagoberto Arias PA-C Indication: Central Drug Administration, Poor Venous Access, Multiple Lab Draws Necessary, etc. Anesthesia: None Emergent consent implied in the setting of hemodynamic instability and need for central access in the dario-arrest patient with frequent runs of ventricular tachyarrhythmia and need for increasing vasoactive medication support and additional multiple medications in the unstable patient. Patient with recent placement of AICD. Given this concern with recent AICD placement with wires, did elect to avoid upper circulation secondary to risk for possible seeding of infection to recent AICD. A time-out was completed verifying correct patient, procedure, site, positioning, and implants(s) or special equipment if applicable. Patients RIGHT Groin was cleansed and draped in the typical sterile fashion using Chloraprep. The Femoral Vein and Femoral Artery were identified using ultrasound. The Femoral Vein was cannulated under direct ultrasound guidance using an introducer needle on a syringe. Good venous blood return was maintained prior to removal of syringe from introducer needle. Using Seldinger Technique, a guide wire was advanced through the introducer needle without resistance. The introducer needle was removed and ultrasound images were obtained of the guide wire within the Femoral Vein and saved to the patients medical record. A small incision was made in penetrating fashion at the guide wire insertion site utilizing an 11 blade scalpel. The dilator was advanced to the vessel without resistance. While attempting to exchange the dilator with triple-lumen catheter, resistance was met and guidewire was lost. At this point, [facility] had arrived and need for transfer to tertiary care facility versus central axis was found to be more necessary at this point. Attempt was terminated. The area was cleaned and dressed with sterile dressing. Patient tolerated procedure well. No immediate complications were met. Images obtained are saved for permanent record Procedural Ultrasound Guidance: Procedure Date: 09/29/2019 Indication: Hemodynamic instability, need for central access, pressors, frequent lab draws Attending: Dr. Zhnag APC: Dagoberto Arias PA-C Artery AND Vein visualized: YES Compressible Vein: YES Guidewire or Short Catheter seen in vein prior to dilation: YES Line confirmed in Vein with ultrasound: YES Images obtained are saved for permanent record. Coding CPT Codes Tubes, Drains, and Vasc Access - Tubes, Drains, and Vasc Access: [id number] Insertion Of Non-tunneled Catheter Age 5 Yrs> ([id number]) Tubes, Drains, and Vasc Access - Tubes, Drains, and Vasc Access: [id number] Ultrasound Guidance For Vascular ([id number]) [facility] Procedure Codes (Charges) Tubes, Drains, and Vasc Access Procedure 1: Tubes, Drains, and Vasc Access: [id number] Insertion Of Non-tunneled Catheter Age 5 Yrs> Procedure 2: Tubes, Drains, and Vasc Access: [id number] Ultrasound Guidance For Vascular
--- NOTE | 2019-09-29 22:21 | Critical Care Consultation ---
Date of Consultation September 29, 2019 Assessment & Plan (1) Admitted to intensive care unit: Reason critically ill: 59-year-old female with recurrent runs of ventricular tachyarrhythmia resulting in AICD discharge and syncope requiring close hemodynamic monitoring and intervention. Upon arrival in the ICU, patient had an additional episode of ventricular tachycardia. Cardiology had been present in the facility seen the patient on admission. This additional run of ventricular tachyarrhythmia was reported to cardiology. Dr. Blakely was kind enough to see the patient at bedside again. At this point, given the patient's frequent runs of unstable V. tach resulting in defibrillation and likely need for aggressive electrophysiology intervention, it was felt best the patient be transferred to tertiary care facility for further evaluation and management. While in the presence of the ICU, the patient had additional runs of V. tach. Patient became hypotensive and increasingly unresponsive with longer runs of V. tach. Patient was bolused with IV amiodarone. She reported that her previous allergy to amiodarone was pain in her back with no other concerning anaphylaxis type reactions. Despite amiodarone bolus with drip, patient had increasing runs of V. tach which was found to be unstable. The patient was essentially prearrest and became obtunded with increasing frequency and V. tach. The patient was noted to be hypoxic during these events. Decision was made for emergent endotracheal intubation for airway protection. Emergency department was contacted. Decision was made to place the patient on levofed given her hemodynamic instability. Additionally, the patient was bolused with IV fluids and she was also bolused with lidocaine with start of drip. Transfer was arranged by hospitalist. Attempt at gaining central access family was unsuccessful. Please see separate note. Patient was appropriately sedated and [facility] arrived for transportation to [facility]. Patient did appear to stabilize with less rounds of V. tach status post lidocaine administration. Patient was transferred in stable condition to [facility]. I have personally spent 65 minutes of critical care time in the direct management of this patient. This is a life/limb threatening event. This includes time spent evaluating patient, direct bedside care, chart review, placing orders, interpretation of diagnostic studies, discussion with consultants, patient, and family members, as well as other required patient management activities. This time is exclusive of all separately billable procedures, and teaching time and separate from and in addition to any other critical care service time. (2) Ventricular tachycardia, incessant: (3) CKD (chronic kidney disease): (4) AICD discharge: (5) CHF (congestive heart failure): (6) Acute kidney injury superimposed on chronic kidney disease: (7) Syncope: Supervising Physician Co-Signing Physician Notes Evelio Arias discussed the patient with me. I agree with assessment and plan of Evelio Arias PA-C. History of Present Illness Attending Physician: Rosangela Townsend MD History of Present Illness Patient is a 59-year-old female with a significant past medical history of coronary artery disease, hypertension, hyperlipidemia, CKD 4, and nonischemic cardiomyopathy status post recent AICD placement approximately 1 month ago. Patient has been experiencing regular AICD firing nearly daily per her report. She states that today she was feeling lightheaded and had an episode of syncope. She contacted the on-call food bagging machine operator who directed her to the emergency department. In the emergency department. She was found to have had runs of V. tach x3 with defibrillation x1 per AICD interrogation. She received IV dose of Lasix and was admitted to the hospital for further evaluation and management. While admitted to the telemetry floor, the patient had an episode of syncope with defibrillation. She was subsequently transferred to the ICU. While transitioning from her telemetry bed to an ICU level bed, patient had an additional episode of V. tach with subsequent defibrillation. Allergies Allergy/AdvReac Type Severity Reaction Status Date / Time escitalopram [From Lexapro] AdvReac Severe NAUSEA/VOMI Verified 09/18/19 15:27 TING lisinopril AdvReac Severe Diarrhea Verified 09/29/19 19:03 amiodarone AdvReac BODY Unverified 09/29/19 19:20 ACHES/BACK PAIN Home Medications Home Medications Medication Instructions Recorded Confirmed Type Lantus U-100 Insulin 27 unit SUBCUT QAM 04/29/19 09/29/19 History aspirin [Aspirin Childrens] 81 mg PO DAILY 04/29/19 09/29/19 History atorvastatin 80 mg PO PM 04/29/19 09/29/19 History clopidogrel [Plavix] 75 mg PO DAILY 04/29/19 09/29/19 History famotidine [Pepcid] 20 mg PO DAILY PRN 04/29/19 09/29/19 History isosorbide dinitrate 10 mg PO TID 04/29/19 09/29/19 History levothyroxine 50 mcg PO DAILYBB 04/29/19 09/29/19 History nitroglycerin [Nitrostat] 0.4 mg SUBLINGUAL DIRECTED PRN 04/29/19 09/29/19 History pantoprazole [Protonix] 40 mg PO DAILYBB 04/29/19 09/29/19 History amiodarone 200 mg PO TID 08/10/19 09/29/19 History cholecalciferol (vitamin D3) 125 mcg PO DAILY 08/10/19 09/29/19 History potassium chloride [Klor-Con M20] 20 meq PO QAM #30 tab 08/16/19 09/29/19 Rx acetaminophen [Tylenol Extra 1,000 mg PO Q6H PRN 09/18/19 09/29/19 History Strength] metoprolol succinate [Toprol XL] 25 mg PO HS 09/18/19 09/29/19 History biotin 1,000 mcg PO DAILY 09/29/19 09/29/19 History hydralazine 25 mg PO TID 09/29/19 09/29/19 History iron,carbonyl-vitamin C [Vitron-C] 1 tab PO DAILY 09/29/19 09/29/19 History metolazone 5 mg PO DAILY 09/29/19 09/29/19 History mexiletine 150 mg PO TID 09/29/19 09/29/19 History torsemide 80 mg PO BID 09/29/19 09/29/19 History Patient History Medical History CAD (coronary artery disease) Chronic diastolic (congestive) heart failure CKD (chronic kidney disease), stage IV Dyslipidemia (Acute) Frequent PVCs (Acute) HTN (hypertension) Hypothyroidism Major depressive disorder (Acute) Obesity (Acute) DONALD (obstructive sleep apnea) (Acute) Type 2 diabetes mellitus (Acute) Surgical History History of gastric bypass (Acute ~2008) Donn En Y Hx of CABG (Acute ~2004) "CABG, PCI, and stent to the mid RCA in Mar 2004" Status post coronary artery stent placement (Acute ~12/18/18) [id number] Resolute Mimbres stent to LAD distal to ALEMAN-LAD graft touchdown. 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 All else were negative. Physical Exam Physical Exam: VITAL SIGNS - Vital signs and nursing notes were reviewed. GENERAL - 59-year-old female appearing older than her stated age who is in no acute distress. Communicates well with provider and answers questions appropriately. HEAD - NC/AT. EYES - PERRL with EOMI bilaterally. Sclera anicteric. EARS - No deformities of external structures noted on gross examination bilaterally. NOSE - Midline and without cyanosis. No epistaxis or purulent drainage noted. MOUTH/OROPHARYNX - Without perioral cyanosis. Buccal mucosa pink and moist and without leukoplakia. NECK - Neck with FROM. Supple to palpation. LUNGS - Chest wall symmetric without accessory muscle use, intercostals retractions, or central cyanosis. Normal vesicular breath sounds CTA B/L. No wheezes, rales, or rhonchi appreciated. CARDIAC - RRR with S1/S2. No murmur, rubs, or gallops appreciated. No reproducible tenderness to palpation appreciated over the anterior chest wall. ABDOMEN - Abdominal contour obese without pulsations or visible masses. BS normoactive all four quadrants. No tenderness, palpable masses, hepatosplenomegaly, or ascites noted. EXTREMITIES - No clubbing or peripheral cyanosis. Moderate pretibial edema present. +3/5 radial and dorsalis pedis pulses palpated throughout. NEUROLOGIC - Cranial nerves II through XII grossly intact. Sensory intact to light touch throughout. PSYCH - A&Ox3 and cooperates fully with examiner. Results & Data Results & Data ([facility]) Vital Signs (Past 12 Hours) Vital Signs Temp Pulse Pulse Resp BP BP Pulse Ox 09/29/19 21:58 80 18 136/89 09/29/19 21:56 82 19 131/78 09/29/19 21:54 102 H 14 133/89 09/29/19 21:52 80 19 141/94 H 94 09/29/19 21:50 80 19 149/91 H 95 09/29/19 21:46 80 18 160/90 H 97 09/29/19 21:44 135 H 23 103/75 98 09/29/19 21:41 81 25 H 113/73 97 09/29/19 21:36 81 23 127/97 98 09/29/19 21:31 125 H 24 69/48 L 92 09/29/19 21:21 80 21 128/78 95 09/29/19 21:06 80 17 138/83 95 09/29/19 20:49 82 18 142/79 H 97 09/29/19 20:01 36.4 C L 82 22 102/63 93 09/29/19 19:55 81 24 156/74 H 91 09/29/19 19:16 80 115/66 94 09/29/19 19:01 77 135/75 94 09/29/19 18:45 78 130/73 94 09/29/19 18:44 96 09/29/19 18:41 89 L 09/29/19 18:31 83 90 09/29/19 18:30 80 131/76 91 09/29/19 18:16 80 130/69 90 09/29/19 18:01 80 141/82 H 93 09/29/19 17:45 80 145/88 H 96 09/29/19 17:32 80 95 09/29/19 17:30 80 146/78 H 96 09/29/19 17:27 80 140/88 94 09/29/19 17:16 82 09/29/19 17:05 36.8 C 81 18 146/85 H 92 09/29/19 17:04 94 Coding Level of Care Code Critical Care 1st 30-74 mins Diagnoses Admitted to intensive care unit Z78.9 Ventricular tachycardia, incessant I47.2 CKD (chronic kidney disease) N18.9 Chronic kidney disease stage: unspecified stage AICD discharge Z45.02 CHF (congestive heart failure) I50.23 Heart failure chronicity: acute on chronic Heart failure type: systolic Acute kidney injury superimposed on chronic kidney disease N17.9; N18.9 Syncope R55 Syncope type: unspecified Time Spent (min) 65 (1) CHF (congestive heart failure) Heart failure chronicity: acute on chronic Heart failure type: systolic Qualified Code(s): I50.23 - Acute on chronic systolic (congestive) heart failure (2) CKD (chronic kidney disease) Chronic kidney disease stage: unspecified stage Qualified Code(s): N18.9 - Chronic kidney disease, unspecified (3) Syncope Syncope type: unspecified Qualified Code(s): R55 - Syncope and collapse
[2019-09-29] MEDS ORDERED: LIDOCAINE IV BOLUS & DRIP IV STA (22:23)
[2019-09-29] MEDS ORDERED: LIDOCAINE 2% 20 MG/ML 5 ML SYR IV STA (22:23)
[2019-09-29] MEDS ORDERED: LIDOCAINE HCL/D5W 2000 MG/500 ML BAG IV ONE (22:24)
[2019-09-29] MEDS ORDERED: LIDOCAINE/D5W DRIP 4MG/ML 2,000 MG/500 ML BAG IV SCH (22:30)
[2019-09-29] MEDS ORDERED: NOREPINEPHRINE BIT INJ 8 MG in DEXTROSE 5% 500 ML IV SCH (22:30)
--- NOTE | 2019-09-29 22:31 | Discharge Summary ---
Date of Service September 29, 2019 Admission HPI Per Admitting Provider This is a 59 yo F with complicated past medical hx of severe ischemic cardiomyopathy , EF 25 % s/p AICD placement on 09/14/19 , CKD stage 4 , combined systolic and diastolic heart failure , was recently at ER [facility] on 09/18/19 with AICD firing was sent to [facility] pt had right sided cardiac in [facility] , showed elevated left atrial pressures and pulmonary hypertension. Treated with intravenous Lasix infusion with significant diuresis -15 lb weight loss over a 72 hour period. Transitioned to oral torsemide prior to discharge. Amiodarone dose was titrated to 200 mg TID , Discharged from [facility] Electrophysiology suggested medical management. pt continued to experience AICD firing , was seen at Cardiology office with Dr Gibson on 09/27/19 ICD interrogation demonstrates episode of nonsustained ventricular tachycardia that did not require shock therapy. ICD interrogation: VF 08/29/2019 s/p successful defibrillation with 36.2 joules this afternoon she felt lightheaded /passed out , received AICD firing / spoke with human relations teacher Cardiology Dr Blakely was asked to come to ER pt continued to have sustained vtach in ER and on arrival to floor was started on IV amiodarone gtt was seen by Cardiology at bedside pt transferred to ICU plan is to transfer to [facility] for Cardiac ablation accepting physician Dr Martel cardiology in ICU pt continues to receive AICD firing , became unresponsive later hypotensive and hypoxic emergently intubated later after pt is stablized transferred via life flight to [facility] . [place] Admission Exam Per Admitting Provider Constitutional: WD/WN, vitals as above Eyes: PERRL, conjunctivae normal, anicteric sclerae Neck: trachea midline, no thyromegaly Respiratory: normal respiratory effort; no respiratory distress and no labored breathing Cardiovascular: Rate/Rhythm: regular rate Extremities: + edema (Severe edema in the B/L LE up to thighs) Skin: no rashes, warm and dry Principal Diagnosis SEVERE ISCHEMIC CARDIOMYOPATHY /SUSTAINED VTACH /RECURRENT AICD FIRING Discharge Exam Constitutional WD/WN, vitals as above + mechanically ventilated ENMT ET TUBE PRESENT Respiratory Auscultation: + crackles and + rales INTUBATED Cardiovascular Rate/Rhythm: + tachycardic Extremities: + pedal edema and + edema INTERMITTENT VTACH WITH AICD FIRING Gastrointestinal (Abdomen) Percussion/Palpation: abdomen soft; abdomen nontender Neurologic UNRESPONSIVE INTUBATED Discharge Data Allergies Allergy/AdvReac Type Severity Reaction Status Date / Time escitalopram [From Lexapro] AdvReac Severe NAUSEA/VOMI Verified 09/18/19 15:27 TING lisinopril AdvReac Severe Diarrhea Verified 09/29/19 19:03 amiodarone AdvReac BODY Unverified 09/29/19 19:20 ACHES/BACK PAIN Consultations 09/29/19 18:38 ED Decision to Admit Stat 09/29/19 18:57 Consult Cardiology Routine Ordered Studies 09/29/19 17:13 US point of care ultrasound Stat 09/29/19 21:39 US point of care ultrasound Stat Hospital Course (1) AICD discharge: SEVERE ISCHEMIC CARDIOMYOPATHY : EF 25 % , with severe cardiomyopathy presents with sustained vtach and recurrent AICD firing appreciate input from Cardiology pt is transferred to ICU started on IV amiodarone gtt continued to have sustained monomorphic Vtach , requiring multiple AICD firing intubated emergently for airways protection accepted by Cardiology /cardiac ICU in [facility] flighted to [facility] COMBINED SYSTOLIC /DIASTOLIC FAILURE : severe ischemic cardiomyopathy with biventricular failure EF 25 % presented with sustained vtach /AICD firing transferred to ICU /Cardiology [place] all diuretics on hold as pt became hypotensive during episodes of AICD firing /sustaned Vtach ACUTE RENAL FAILURE ON CKD STAGE 4 cardiorenal syndrome baseline cr ~3-3.5 admitted with elevated Cr 4 possible due to diuresis vs hypotensive episodes with sustained vtach over all prognosis remains guarded FULL CODE DVT PROPHYLAXIS : sub q heparin DISPOSITION : pt is transferred to [facility] for definitive cardiac intervention /ablation therapy Total Time Total Time Spent Total Time Spent (In Minutes): CRITICAL CARE PROVIDED > 30 MINS Total Time Includes: Examination of the Patient, Discharge Planning, Medication Reconciliation, Communication With Other Providers and Other (ARRANGING TRANSFER TO CARDIAC ICU IN [facility] ) Discharge Plan Discharge Items Patient Disposition: Transfer Acute Care Hospital Reason For Visit: AICD FIRING, CHEST PAIN Discharge Diagnosis: SEVERE ISCHEMIC CARDIOMYOPATHY /SUSTAINED VTACH Activity: As commented below Activity Comment: bedrest Non-emergency contact: Primary Care Provider Call non-emergency contact if: you have any medication questions Follow-up/Referrals: Laxmi Olvera DO [Primary Care Provider] - Diet: Nothing by Mouth Addtl Attending Provider Instructions: pt is transferred to [facility] for sustained Vtach /AICD firing will need cardiac ablation Accepting physician Dr Darell Martel Cadiology Pending Studies at Discharge: No Stand-Alone Forms: My [facility] Skilled Items Patient informed of condition?: Yes DNR: No Discharge Level of Care: Other Communicable Disease: No Discharge Prognosis: Other Lines: Mid-Line Urinary Catheter: Yes Medications and DC Order Prescriptions: Discontinued amiodarone 200 mg tablet 200 mg PO TID RF: 0 cholecalciferol (vitamin D3) 125 mcg (5,000 unit) Tablet 125 mcg PO DAILY RF: 0 potassium chloride [Klor-Con M20] 20 mEq Tablet,Er Particles/Crystals 20 meq PO QAM Qty: 30 RF: 0 metolazone 5 mg tablet 5 mg PO DAILY RF: 0 mexiletine 150 mg Capsule 150 mg PO TID RF: 0 biotin 1,000 mcg Tablet,Chewable 1,000 mcg PO DAILY RF: 0 hydralazine 25 mg tablet 25 mg PO TID RF: 0 Vitron-C 65 mg iron- 125 mg Tablet,Delayed Release (Dr/Ec) 1 tab PO DAILY RF: 0 torsemide 20 mg tablet 80 mg PO BID RF: 0 isosorbide dinitrate 10 mg Tablet 10 mg PO TID RF: 0 atorvastatin 80 mg Tablet 80 mg PO PM RF: 0 Lantus U-100 Insulin 100 unit/mL Solution 27 unit SUBCUT QAM RF: 0 clopidogrel [Plavix] 75 mg Tablet 75 mg PO DAILY RF: 0 famotidine [Pepcid] 20 mg Tablet 20 mg PO DAILY PRN (Reason: Gi Upset) RF: 0 levothyroxine 50 mcg Tablet 50 mcg PO DAILYBB RF: 0 pantoprazole [Protonix] 40 mg Tablet,Delayed Release (Dr/Ec) 40 mg PO DAILYBB RF: 0 nitroglycerin [Nitrostat] 0.4 mg Tablet, Sublingual 0.4 mg sublingual DIRECTED PRN (Reason: Chest Pain) RF: 0 aspirin [Aspirin Childrens] 81 mg Tablet,Chewable 81 mg PO DAILY RF: 0 acetaminophen [Tylenol Extra Strength] 500 mg Tablet 1,000 mg PO Q6H PRN (Reason: Pain) RF: 0 metoprolol succinate [Toprol XL] 25 mg tablet extended release 24 hr 25 mg PO HS RF: 0 Discharge Orders: Discharge Order (Routine); Ordered 09/29/19 Ordered By: Rosangela Townsend Admission Data Admit Date/Time: 09/29/19 18:57 Attending Provider: Rosangela Townsend Admit Provider: Rosangela Townsend Primary Care Provider: Laxmi Olvera Other Providers: Rosangela Townsend ; Tony Blakely ; Matteo Ruiz ; Preet Tinoco ; Caden Olvera ; Randal Ocampo ; Jose Manuel Almonte ; Shelli Garcia ; Janie Maharaj ; Liu Toro ; Davie Zhang Other Interventions: Discharge Summary Assessment (RN) Last Done: 09/29/19 23:05 DC Date/Time DO NOT enter until pt leaves facility: 09/29/19 23:06
--- NOTE | 2019-09-29 22:43 | Cardiology Consultation ---
Date of Consultation September 29, 2019 Assessment & Plan (1) Ventricular tachycardia, incessant: (2) AICD discharge: (3) Syncope: (4) Cardiomyopathy: (5) CAD (coronary artery disease): Will continue with IV amio infusion along with levophed for hemodynamic support will also add IV lidocaine bolus and load Intubated for transfer via air to [facility] SisterJulieth, updated x 2 by myself via phone, alerted of grave clinical nature Due to her ongoing ventricular tachycardia storm transfer arranged to [facility] for possible VT ablation. I spent a total of 150 minutes of critical care in direct patient contact, discussion with critical care team, discussion with accepting director of materials management and discussion with her sister by phone.This includes time spent evaluating patient, direct bedside care, chart review, placing orders, interpretation of diagnostic studies, discussion with consultants, patient, and family members, as well as other required patient management activities. History of Present Illness Reason for Consultation: ICD firing Requesting Physician: Dr. Townsend Attending Physician: Rosangela Townsend MD History of Present Illness It was my pleasure to see Ms. Ríos in emergent cardiology consultation today September 29, 2019. She is a very pleasant yet cardiovascularly complex 59-year-old woman whom I directed to the emergency room today. I received a call as the on- call director of materials management and she reported a syncopal event and subsequent ICD firing. Patient states that she just was not feeling well yesterday. She was a little nauseous and lightheaded throughout the day. Then in the evening she was watching television when she suddenly became very lightheaded and she syncopized. This was witnessed by her sister. After the ICD firing she regained consciousness and states she continued to just not feel well. She then contacted me and I directed her to the emergency room for further evaluation. Upon arrival she was clinically stable and remote device interrogation showed several episodes of ventricular tachycardia that she was paced out of and then a sustained episode for which she received defibrillation. After admission she then had subsequent ICD firings and I was alerted by Dr. cota. I saw the patient on telemetry and ordered an amiodarone bolus and load. She was then transferred to the intensive care unit where she continued to have episodes of sustained ventricular tachycardia, monomorphic in appearance. Some events were successfully paced to sinus rhythm, however, multiple more events required ICD firing. She subsequently became hypotensive and I ordered normal saline bolus. She was then started on IV Levophed for pressure support as well. She was in and out of consciousness and I ordered her to be intubated. A right femoral triple-lumen was also ordered, unfortunately, access was not achieved. At that point, the decision was made to transfer her to [facility] in [place] for possible urgent ventricular tachycardia ablation. I spoke with the patient at great lengths as well as her sister, Julieth, by phone. Her sister was updated on the clinical status at first while she was on telemetry and then again when transfer was recommended. Both the patient and her sister agreed with the above plan. A lidocaine infusion was also started along with the amiodarone and [facility] was contacted for transport to [facility]. I spoke with Dr. Martel, the accepting director of materials management at [facility]. He was also updated of her status after acceptance and transport from [facility]. Past medical history as per most recent outpatient follow-up: 1. Ventricular fibrillation arrest status post successful internal defibrillation with 36.2 joules August 29, 2019 2. Chronic systolic heart failure with cardiorenal syndrome and CKD stage 4. -compensated -26 lb weight loss3. Frequent PVCs. -Amiodarone prescribed during hospitalization in June -PVC burden improved status post pacemaker insertion with preferred atrial pacing -82 PVC's/day per interrogation 4. Ischemic cardiomyopathy with abnormal Lexiscan nuclear stress testing fall 2018 prompting cardiac catheterization and subsequent drug-eluting stent implantation to left anterior descending artery. 5. Chronic coronary artery disease with s/p coronary artery bypass grafting 2004 and recent drug-eluting stent to the LAD 11/2018. 6. Carotid vascular disease with left-sided carotid occlusion 7. Hypertension - controlled 8. Dyslipidemia, goal LDL less than 70 mg/dl - tolerating atorvastatin. 9. Mild obstructive sleep apnea - polysomnography completed May 24, 2015; patient has not followed up with sleep medicine 10. Diabetes -2, borderline control with most recent hemoglobin A1c 7.3% Allergies Allergy/AdvReac Type Severity Reaction Status Date / Time escitalopram [From Lexapro] AdvReac Severe NAUSEA/VOMI Verified 09/18/19 15:27 TING lisinopril AdvReac Severe Diarrhea Verified 09/29/19 19:03 amiodarone AdvReac BODY Unverified 09/29/19 19:20 ACHES/BACK PAIN Home Medications Home Medications Medication Instructions Recorded Confirmed Type Lantus U-100 Insulin 27 unit SUBCUT QAM 04/29/19 09/29/19 History aspirin [Aspirin Childrens] 81 mg PO DAILY 04/29/19 09/29/19 History atorvastatin 80 mg PO PM 04/29/19 09/29/19 History clopidogrel [Plavix] 75 mg PO DAILY 04/29/19 09/29/19 History famotidine [Pepcid] 20 mg PO DAILY PRN 04/29/19 09/29/19 History isosorbide dinitrate 10 mg PO TID 04/29/19 09/29/19 History levothyroxine 50 mcg PO DAILYBB 04/29/19 09/29/19 History nitroglycerin [Nitrostat] 0.4 mg SUBLINGUAL DIRECTED PRN 04/29/19 09/29/19 History pantoprazole [Protonix] 40 mg PO DAILYBB 04/29/19 09/29/19 History amiodarone 200 mg PO TID 08/10/19 09/29/19 History cholecalciferol (vitamin D3) 125 mcg PO DAILY 08/10/19 09/29/19 History potassium chloride [Klor-Con M20] 20 meq PO QAM #30 tab 08/16/19 09/29/19 Rx acetaminophen [Tylenol Extra 1,000 mg PO Q6H PRN 09/18/19 09/29/19 History Strength] metoprolol succinate [Toprol XL] 25 mg PO HS 09/18/19 09/29/19 History biotin 1,000 mcg PO DAILY 09/29/19 09/29/19 History hydralazine 25 mg PO TID 09/29/19 09/29/19 History iron,carbonyl-vitamin C [Vitron-C] 1 tab PO DAILY 09/29/19 09/29/19 History metolazone 5 mg PO DAILY 09/29/19 09/29/19 History mexiletine 150 mg PO TID 09/29/19 09/29/19 History torsemide 80 mg PO BID 09/29/19 09/29/19 History Patient History Medical History CAD (coronary artery disease) Chronic diastolic (congestive) heart failure CKD (chronic kidney disease), stage IV Dyslipidemia (Acute) Frequent PVCs (Acute) HTN (hypertension) Hypothyroidism Major depressive disorder (Acute) Obesity (Acute) DONALD (obstructive sleep apnea) (Acute) Type 2 diabetes mellitus (Acute) Surgical History History of gastric bypass (Acute ~2008) Donn En Y Hx of CABG (Acute ~2004) "CABG, PCI, and stent to the mid RCA in Mar 2004" Status post coronary artery stent placement (Acute ~12/18/18) [id number] Resolute Fernando stent to LAD distal to ALEMAN-LAD graft touchdown. 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 Mild distress. HEENT: Normocephalic, atraumatic. Pupils equal, round and reactive to light and accommodation. Extraocular muscles are intact. Anicteric sclera. Moist mucous membranes. Neck: No JVD. No bruit. Cardiovascular: Regular. Positive S-4. Normal S-1 and S-2. No S-3. 3/6 mid to late systolic ejection murmur, greatest at the right sternal border, second intercostal space with radiation to the bilateral carotids. No rubs. Pulmonary: Clear to auscultation bilaterally. No rales, rhonchi, or wheezing. Abdomen: Bowel sounds x 4, soft. No rebound, guarding or tenderness. No organomegaly. Extremities: No clubbing, cyanosis or edema. +2 pedal pulses bilaterally. Skin: Warm and dry. Results & Data ([facility]) Vital Signs (Past 12 Hours) Vital Signs Temp Pulse Pulse Resp BP BP Pulse Ox 09/29/19 21:58 80 18 136/89 09/29/19 21:56 82 19 131/78 09/29/19 21:54 102 H 14 133/89 09/29/19 21:52 80 19 141/94 H 94 09/29/19 21:50 80 19 149/91 H 95 09/29/19 21:46 80 18 160/90 H 97 09/29/19 21:44 135 H 23 103/75 98 09/29/19 21:41 81 25 H 113/73 97 09/29/19 21:36 81 23 127/97 98 09/29/19 21:31 125 H 24 69/48 L 92 09/29/19 21:21 80 21 128/78 95 09/29/19 21:06 80 17 138/83 95 09/29/19 20:49 82 18 142/79 H 97 09/29/19 20:01 36.4 C L 82 22 102/63 93 09/29/19 19:55 81 24 156/74 H 91 09/29/19 19:16 80 115/66 94 09/29/19 19:01 77 135/75 94 09/29/19 18:45 78 130/73 94 09/29/19 18:44 96 09/29/19 18:41 89 L 09/29/19 18:31 83 90 09/29/19 18:30 80 131/76 91 09/29/19 18:16 80 130/69 90 09/29/19 18:01 80 141/82 H 93 09/29/19 17:45 80 145/88 H 96 09/29/19 17:32 80 95 09/29/19 17:30 80 146/78 H 96 09/29/19 17:27 80 140/88 94 09/29/19 17:16 82 09/29/19 17:05 36.8 C 81 18 146/85 H 92 09/29/19 17:04 94 Laboratory Results Laboratory Results - last 48 hr 09/29/19 09/29/19 09/29/19 17:25 17:25 17:25 WBC 7.68 RBC 4.29 Hgb 10.6 L Hct 34.0 L MCV 79.3 L MCH 24.7 L MCHC 31.2 L RDW Std Deviation 59.1 H RDW Coeff of Kami 20.6 H Plt Count 224 MPV 11.4 H Immature Gran % (Auto) 0.3 Neut % (Auto) 77.2 Lymph % (Auto) 14.5 [place] % (Auto) 6.5 Eos % (Auto) 1.4 Baso % (Auto) 0.1 Neut # (Auto) 5.93 Lymph # (Auto) 1.11 L [place] # (Auto) 0.50 Eos # (Auto) 0.11 Baso # (Auto) 0.01 Immature Gran # (Auto) 0.02 Anisocytosis Present Ovalocytes 1+ Acanthocytes (Spur) 1+ PT 11.4 INR 1.1 APTT 25.9 PTT Ratio 0.9 Sodium 135 L Potassium 3.7 Chloride 101 Carbon Dioxide 24 Anion Gap 10.0 BUN 60 H Creatinine 4.03 H Est Cr Clr Drug Dosing Not Reportable Est GFR ( Amer) 13.4 Est GFR (Non-Af Amer) 11.6 BUN/Creatinine Ratio 14.9 Glucose 156 H Calcium 8.9 Phosphorus 5.3 H Magnesium 2.8 H Total Bilirubin 1.0 AST 13 L ALT 18 Alkaline Phosphatase 97 Total Creatine Kinase 64 Troponin I 0.024 Total Protein 7.2 Albumin 3.8 Globulin 3.4 Albumin/Globulin Ratio 1.1 Lipase 265 09/29/19 21:26 WBC RBC Hgb Hct MCV MCH MCHC RDW Std Deviation RDW Coeff of Kami Plt Count MPV Immature Gran % (Auto) Neut % (Auto) Lymph % (Auto) [place] % (Auto) Eos % (Auto) Baso % (Auto) Neut # (Auto) Lymph # (Auto) [place] # (Auto) Eos # (Auto) Baso # (Auto) Immature Gran # (Auto) Anisocytosis Ovalocytes Acanthocytes (Spur) PT INR APTT PTT Ratio Sodium 134 L Potassium 3.2 L Chloride 99 Carbon Dioxide 24 Anion Gap 11.0 BUN 60 H Creatinine 3.86 H Est Cr Clr Drug Dosing 20.4 Est GFR ( Amer) 14.1 Est GFR (Non-Af Amer) 12.2 BUN/Creatinine Ratio 15.4 Glucose 241 H Calcium 8.7 Phosphorus 5.5 H Magnesium 2.6 H Total Bilirubin AST ALT Alkaline Phosphatase Total Creatine Kinase Troponin I Total Protein Albumin Globulin Albumin/Globulin Ratio Lipase Medications Administered Medications Lantus U-100 Insulin 27 unit SUBCUT QAM 04/29/19 [History Confirmed 09/29/19] aspirin [Aspirin Childrens] 81 mg PO DAILY 04/29/19 [History Confirmed 09/29/19] atorvastatin 80 mg PO PM 04/29/19 [History Confirmed 09/29/19] clopidogrel [Plavix] 75 mg PO DAILY 04/29/19 [History Confirmed 09/29/19] famotidine [Pepcid] 20 mg PO DAILY PRN 04/29/19 [History Confirmed 09/29/19] isosorbide dinitrate 10 mg PO TID 04/29/19 [History Confirmed 09/29/19] levothyroxine 50 mcg PO DAILYBB 04/29/19 [History Confirmed 09/29/19] nitroglycerin [Nitrostat] 0.4 mg SUBLINGUAL DIRECTED PRN 04/29/19 [History Confirmed 09/29/19] pantoprazole [Protonix] 40 mg PO DAILYBB 04/29/19 [History Confirmed 09/29/19] amiodarone 200 mg PO TID 08/10/19 [History Confirmed 09/29/19] cholecalciferol (vitamin D3) 125 mcg PO DAILY 08/10/19 [History Confirmed 09/29/19] potassium chloride [Klor-Con M20] 20 meq PO QAM #30 tab 08/16/19 [Rx Confirmed 09/29/19] acetaminophen [Tylenol Extra Strength] 1,000 mg PO Q6H PRN 09/18/19 [History Confirmed 09/29/19] metoprolol succinate [Toprol XL] 25 mg PO HS 09/18/19 [History Confirmed 09/29/19] biotin 1,000 mcg PO DAILY 09/29/19 [History Confirmed 09/29/19] hydralazine 25 mg PO TID 09/29/19 [History Confirmed 09/29/19] iron,carbonyl-vitamin C [Vitron-C] 1 tab PO DAILY 09/29/19 [History Confirmed 09/29/19] metolazone 5 mg PO DAILY 09/29/19 [History Confirmed 09/29/19] mexiletine 150 mg PO TID 09/29/19 [History Confirmed 09/29/19] torsemide 80 mg PO BID 09/29/19 [History Confirmed 09/29/19] (1) Syncope Syncope type: unspecified Qualified Code(s): R55 - Syncope and collapse
[2019-09-29] MEDS ORDERED: fentaNYL citrate 100 MCG/2 ML VIAL IV ONE (23:05)
[2019-09-29] MEDS ORDERED: MAG SULFATE 50% 1GM/2ML VIAL IV ONE (23:05)
[2019-09-29 23:06] VITALS: BP 102/63; PULSE 82
[2019-09-30] MEDS ORDERED: INSULIN ASPART 100 UNITS/ML 3 ML PEN SC SCH
[2019-09-30] MEDS ORDERED: AMIODARONE / D5W 360 MG/200 ML BAG IV SCH ×2 (02:58→03:15)
--- NOTE | 2019-09-30 06:21 | XRay Report ---
XR chest 1V portable CLINICAL HISTORY: ET TUBE PLACEMENT tube position COMPARISON STUDY: 09/29/2019 FINDINGS: Endotracheal tube placed 5 cm above the bijan. Mildly progressive components of congestive failure/pulmonary edema. Unchanged small right effusion. Permanent cardiac pacemaker remains in good position. IMPRESSION: Mildly progressive congestive failure. Endotracheal tube 5 cm above the bijan. ACT 112: Negative or not required by law. The above report was generated using voice recognition software. It may contain grammatical, syntax or spelling errors. Electronically signed by: Jose Manuel Schultz M.D. 09/30/2019 6:20 AM
[2019-09-30] MEDS ORDERED: LEVOTHYROXINE SODIUM 50 MCG TABLET PO SCH (06:30)
[2019-09-30] MEDS ORDERED: ISOSORBIDE DINITRATE 10 MG TAB PO SCH (07:00)
[2019-09-30] MEDS ORDERED: POTASSIUM CHLORIDE 20 MEQ TABCR PO SCH (09:00)
[2019-09-30] MEDS ORDERED: FERROUS SULFATE 325 MG TAB PO SCH (09:00)
[2019-09-30] MEDS ORDERED: NON-FORMULARY MEDICATION (Biotin 1,000 MCG) PO SCH (09:00)
[2019-09-30] MEDS ORDERED: CHOLECALCIFEROL 1,000 UNITS 25 MCG TAB PO SCH (09:00)
[2019-09-30] MEDS ORDERED: ASPIRIN 81 MG ECTAB PO SCH (09:00)
[2019-09-30] MEDS ORDERED: CLOPIDOGREL BISULFATE 75 MG TAB PO SCH (09:00)
[2019-09-30] MEDS ORDERED: INSULIN GLARGINE SOLOSTAR 100 UNITS/ML 3 ML PEN SC SCH (09:00)
[2019-09-30] MEDS ORDERED: metOLazone 5 MG TABLET PO SCH (09:00)
--- NOTE | 2019-09-30 11:02 | Electrocardiogram Report ---
Test Reason : Blood Pressure : / mmHG Vent. Rate : 082 BPM Atrial Rate : 082 BPM P-R Int : 308 ms QRS Dur : 108 ms QT Int : 400 ms P-R-T Axes : 064 067 156 degrees QTc Int : 467 ms Atrial-paced rhythm with prolonged AV conduction with occasional PVC Marked ST abnormality, possible lateral subendocardial injury Abnormal ECG When compared with ECG of 18-SEP-2019 14:52, Vent. rate has decreased BY 2 BPM Confirmed by Gera Sethi ([id number]) on 09/30/2019 11:02:33 AM Referred By: REFERRED SELF Confirmed By:Froylan Sethi
[2019-10-08] MEDS ORDERED: AMIODARONE 200 MG TAB PO SCH (09:00)
== END 2019-09-29 23:06 | disposition short-term general hospital (02) | DRG 309 ==
LOC: ED 17:03 → 2S 18:57 → 1E 20:48